=== PATIENT | male | born 1935 | race Caucasian/White ===

== ENCOUNTER 2017-08-19 08:43 | Outpatient (RCR) | payer MEDICARE, BC ==
[2015-10-14 14:12] VITALS: Ht 177.8 cm; Wt 105.6 kg
[2017-08-11 09:00] VITALS: BP 151/79
[2017-08-11 09:06] LABS: PLATELET COUNT, AUTOMATED 268 K/uL (150-450)
[~2017-08-19] VITALS: Ht 177.8 cm; Wt 105.6 kg
[~2017-08-19 08:43] MED LIST: ACET-1966 PO; ACET500T68 PO; ASPI-1471 PO; ASPI81TA86 PO; ATOR-1 PO; ATOR40TA69 PO; ATR80PT PO; AZIT-1 PO; BLOO-884 MC; CLOP75TA PO; DOCU-416 PO; EZET10TA41 PO; FISH1CAP15 PO; FLU45SYR17 IM; FLU45SYR25 IM ONLY; FLU60SYR30 IM ONLY; FLUT9.9S; GLIP-154 PO; GLIP-175 PO; GLIP2.5T14 PO; HYDR-317 PO; HYDR-385 PO; HYDR-4309 PO; LISI-362 PO; LISI20TA29 PO; LISI5TAB25 PO; METF-420 PO; OXYB10TA21 PO; PHEN200T32 PO; PNEU0.5D3 IM; POLY17PO25 PO; POTA-23 PO; POTA20TA94 PO; PRED20TA6 PO; SERT-181 PO; SERT-184 PO; SIMV-54 PO; TAMS0.4C25 PO; TAMS0.4C70 PO; VERA120T14 PO; ZOLP-1 PO; [UNRECOGNIZED DRUG - CODE] MC
[2017-08-19 09:02] VITALS: BP 139/69
--- NOTE | 2017-08-19 16:53 | ONCOLOGY FOLLOW UP NOTE ---
EVENT DATE: August 19, 2017 DIAGNOSES 1. Idiopathic thrombocytopenia purpura. 2. History of splenectomy for idiopathic thrombocytopenia purpura. 3. History of polycythemia in the past. 4. History of monoclonal gammopathy, unknown significance. 5. 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 6. Diabetes mellitus. 7. Coronary artery disease. 8. Hyperlipidemia. 9. Hypertension. CHIEF COMPLAINT The patient is here today for follow up of his MGUS. HEMATOLOGY HISTORY The patient is an 81-year-old male who had history of squamous cell carcinoma of the skin on multiple occasions. He recently had two lesions from the left side of the face resected by Dr. Varma, and the pathology is still pending. The patient gave a history of idiopathic thrombocytopenic purpura treated with splenectomy a long time ago. Also, as per patient, he was diagnosed with Waldenstrom macroglobulinemia and was put on followup; but, he did not receive any treatment for that in the past according to him. The patient moved from [place], [place] to [place], [place] in December of 2014, and he would like to establish his care with a big data lead. The patient is here today for followup of his ITP and MGUS. He is doing fine currently, apart from having arthritis with pain in the left shoulder and hips bilaterally. The patient is doing fine. He is also short winded. HISTORY OF PRESENT ILLNESS Patient is here today for followup his MGUS. He is doing fine currently. 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 He is scheduled by Dr. Medina, his urologist, for removal of bladder tumor very soon. PAST MEDICAL HISTORY 1. Waldenstrom macroglobulinemia. 2. ITP. 3. Squamous cell carcinoma of the skin. 4. Diabetes mellitus, type 2. 5. Coronary artery disease status post myocardial infarction in 2006, has three stents. 6. Hyperlipidemia. 7. Hypertension. PAST SURGICAL HISTORY 1. He had three stents put in the coronaries. 2. Splenectomy for ITP. 3. Hernia repair. 4. Cholecystectomy. 5. Tonsillectomy as a child. FAMILY HISTORY Mother had breast cancer. SOCIAL HISTORY The patient is with one daughter. 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 He never smoked and never drank. He denies any abuse of illicit drugs. CURRENT MEDICATIONS 1. Aspirin 81 mg daily. 2. Plavix 75 mg daily. 3. Potassium chloride one daily. 4. Lisinopril 5 mg daily. 5. Mag ox 40 mg orally. 6. Metformin 100 mg twice daily. 7. Sertraline 50 mg once daily. 8. Simvastatin 40 mg nightly. 9. Flomax 0.4 mg daily. 10. Zetia 10 mg daily. ALLERGIES ALEVE, CODEINE, PENICILLIN, SULFA DRUGS. REVIEW OF SYSTEMS CONSTITUTIONAL: No appetite or weight change. No fever, chills or sweating. No recent infection. HEENT: Ears: No tinnitus or hearing problem. Nose: No nasal discharge or epistaxis. Throat: No sore throat or mouth ulcers. Eyes: No diplopia or visual changes. RESPIRATORY: No shortness of breath. No cough, expectoration or hemoptysis. CARDIOVASCULAR: No chest pain, orthopnea, or paroxysmal nocturnal dyspnea (PND) . No edema. No palpitations. GASTROINTESTINAL: No nausea or vomiting. No diarrhea or constipation. No change in bowel movements. No heartburn or swallowing difficulties. No abdominal pain. No jaundice. No hematemesis, melena or rectal bleeding. GENITOURINARY: No hematuria or dysuria. MUSCULOSKELETAL: He has pain in the left shoulder and hips bilaterally. NEUROLOGICAL: He has tingling and numbness in the feet from neuropathy. HEMATOLOGIC/LYMPHATIC: No bleeding or easy bruising. No weakness or fatigue. No enlarged lymph nodes. SKIN: No skin rash or lumps. PSYCHIATRIC: No anxiety or depression. PHYSICAL EXAMINATION GENERAL: Looks stable. Well-developed, well-nourished, and in no acute distress. VITAL SIGNS: Blood pressure 139/69, pulse 78 per minute, respirations 16 per minute, temperature 96.9, pulse ox 90% on room air. HEENT: Head: Atraumatic. No sinus tenderness to palpation. Eyes: No icterus or conjunctivitis. Mouth and throat: No oral thrush or mucositis. NECK: Supple. No cervical or supraclavicular lymphadenopathy. LUNGS: Clear to auscultation and percussion bilaterally. HEART: Regular rate and rhythm. No gallops, murmurs, clicks or rubs. ABDOMEN: Soft and lax. No tenderness. No hepatosplenomegaly. No masses. EXTREMITIES: No cyanosis, clubbing or edema. LYMPHATICS: No peripheral lymphadenopathy. NEUROLOGICAL: Conscious, alert and oriented times three. No focal motor or sensory deficits. PSYCHIATRIC: Mood and affect appear normal. SKIN: No skin rash, bruise or purpuric eruption. DIAGNOSTIC DATA CBC showed white count 14.1, hemoglobin 16.4, hematocrit 49.3, platelets 269, 000. Chem panel totally normal except chloride 109, creatinine 1.1.7. Beta-2 microglobulin 4.5. IgG level is 1030, IgA is 279, IgM is 272, which is mildly elevated and up from 252 at his last visit. Serum protein immunoelectrophoresis did reveal a faint band in IgM lambda, suggestive of a specific immune response or an early monoclonal protein with an addition of very faint band in the IgM kappa. ASSESSMENT 1. Monoclonal gammopathy of unknown significance discovered during evaluation of peripheral neuropathy. His current immunoelectrophoresis did reveal a faint band in the IgM lambda which is stable. We will continue followup. I am planning to see him again in six months with repeat myeloma profile at that time. Patient is totally asymptomatic. 2. Idiopathic thrombocytopenic purpura status post splenectomy. His platelet count currently is normal at 268,000. We will continue to monitor with each visit. 3. Lymphocytosis. Absolute lymphocytic count at this time is 6.9. I am planning to get a flow cytometry with his next visit. 4. History of recurrent bladder cancer. Patient is scheduled by Dr. Medina for TURBT soon. 5. Diabetes mellitus on metformin. 6. Coronary artery disease status post myocardial infarction in 2005 with three stents placed. 7. Hypertension. 8. 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 PLAN 1. Continue followup. 2. Patient to return in six months with CBC, chem panel, LDH, uric acid and myeloma profile, and flow cytometry. 3. Patient is to contact us for any new concerns or complaints. KATIA
== END 2017-08-27 09:05 | disposition home or self-care (01) ==
LOC: ONC 08:43
PROVIDERS: ATTEND Internal Medicine Hematology
DX: D69.3 Immune thrombocytopenic purpura (principal); D47.2 Monoclonal gammopathy; D72.820 Lymphocytosis (symptomatic); Z85.51 Personal history of malignant neoplasm of bladder; E11.9 Type 2 diabetes mellitus without complications; I25.10 Atherosclerotic heart disease of native coronary artery without angina pectoris; I10 Essential (primary) hypertension; I25.2 Old myocardial infarction; Z79.82 Long term (current) use of aspirin; Z79.899 Other long term (current) drug therapy
CPT/HCPCS: 36415; 82232; 83615; 83883; 84550; 85025; 86334; G0463; 82040; 82247; 82310; 82374; 82435; 82565; 82947; 84075; 84132; 84155; 84295; 84450; 84460; 84520; 99212

== ENCOUNTER → 2017-08-26 | Outpatient (CLI) | payer MEDICARE, BC ==
[2015-10-14 14:12] VITALS: BMI 33.4
--- NOTE | 2017-08-26 11:29 | RADIOLOGY IMAGING REPORT ---
FACILITY: [facility] PATIENT NAME: Norberto Pritchett : 1935 MR: [id number] V: [id number] EXAM DATE: ORDERING PHYSICIAN: JOSEPH OCASIO TECHNOLOGIST: Location: [facility] Patient: Norberto Pritchett : 1935 Visit/Account:[id number] Date of Sevice: 08/26/2017 ABDOMEN/PELVIS W/O CONTRAST HISTORY: Kidney stones, TCCA TECHNIQUE: Axial images acquired through the abdomen/pelvis. Coronal and sagittal reformatting also performed. No IV contrast administered. Dose Lowering Technique One of the following dose optimization techniques was utilized in the performance of this exam: Autom ated exposure control; adjustment of the mA and/or kV according to the patient's size; or use of an i terative reconstruction technique. Specific details can be referenced in the facility's radiology C T exam operational policy. COMPARISON: None. FINDINGS: Visualized lung bases: Negative. Hepatobiliary: Postsurgical changes from a cholecystectomy Spleen: Spleen is absent. There are several tiny splenules in the left upper quadrant Adrenals: Negative. Pancreas: Negative. Kidneys ureters and bladder: There are two tiny 1 mm nonobstructing calculi lower pole calyces of the right kidney. . (Cortical thinning bilaterally. The two lower pole left renal cysts are again seen and appear unchanged in size. The largest measure s 4 cm in diameter. The upper pole left renal cyst also appears unchanged in size. Other Tiny corti fam hypodensities in both kidneys are too small to characterize.. Bladder wall appears moderately th ickened although was not well opacified with contrast. Genitalia: There is a TURP defect in the prostate GI: There is diverticulosis left-sided colon although no CT evidence of acute diverticulitis Vessels/spaces/nodes: There are moderate vascular calcifications Bones/soft tissues: There is a small umbilical hernia containing fat. Mild to moderate spondylotic changes of the lumbar spine. Additional findings: None pertinent. IMPRESSION: Two tiny 1 mm nonobstructing calculi are present in the lower pole calyces of the right kidney. Cortical thinning bilaterally Left renal cysts unchanged Diverticulosis left-sided colon although no CT evidence of acute diverticulitis Report Dictated By: Pily Gilmore MD at 08/26/2017 11:05 AM Report E-Signed By: Pily Gilmore MD at 08/26/2017 11:25 AM WSN:[email or web address]
== END ==
LOC: CT 01:26
PROVIDERS: ATTEND Urology
DX: N20.0 Calculus of kidney (principal); N28.1 Cyst of kidney, acquired; K57.30 Diverticulosis of large intestine without perforation or abscess without bleeding; K42.9 Umbilical hernia without obstruction or gangrene
CPT/HCPCS: 74176

== ENCOUNTER 2017-09-02 01:34 | Day surgery (SDC) | payer MEDICARE, BC ==
[2015-10-14 14:12] VITALS: Ht 177.8 cm; Wt 103.4 kg
[2017-08-27 10:58] LABS: PLATELET COUNT, AUTOMATED 272 K/uL (150-450)
[2017-08-27 11:09] LABS: INR 0.95
--- NOTE | 2017-09-01 15:00 | HISTORY AND PHYSICAL ---
DATE OF ADMISSION: September 02, 2017 CHIEF COMPLAINT Bladder cancer. 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 At that time, he underwent transurethral resection. Followup cystoscopy revealed some small papillary changes in the right posterior wall. He was taken back to the operating room in March 2017 and underwent a cold-cut biopsy of these right posterior wall lesions which returned a papilloma. A followup anesthetic cystoscopy in mid July of this past year revealed two areas of papillary changes on the posterior wall, both measuring approximately 3 mm in size. Therefore, he is being returned for anesthetic cystoscopy, biopsy, and resection of these lesions with possible mitomycin-C intravesical chemotherapy post resection. Discussion of BCG treatment pending pathology of this biopsy was also discussed with the patient preoperatively. PAST MEDICAL HISTORY 1. Hyperlipidemia. 2. Hypertension. 3. Coronary artery disease with AK in 2005. 4. Diabetes. 5. Squamous cell carcinoma of the skin. 6. Idiopathic thrombocytopenia purpura. 7. Questionable Waldenstrom macroglobulinemia. 8. Sleep apnea. 9. Kidney stones. 10. Bladder cancer. PAST SURGICAL HISTORY 1. Splenectomy for ITP. 2. Hernia repair. 3. Cholecystectomy. 4. Tonsillectomy. 5. Transurethral resection of the prostate. 6. Coronary artery stenting in 2005 and 2007. 7. Charlene fundoplication. 8. Extracorporeal shock wave lithotripsy of kidney stones 2015. 9. Transurethral resection of bladder tumor October 2015. 10. Bladder biopsy March 2017. CURRENT MEDICINES 1. Aspirin. 2. Plavix. 3. Potassium. 4. Lisinopril. 5. Magnesium. 6. Metformin. 7. Simvastatin. 8. Flomax. 9. Zetia. 10. Sertraline. ALLERGIES CODEINE, PENICILLIN, SULFA DRUGS, and ALEVE. REVIEW OF SYSTEMS The patient denies gross hematuria, flank pain, productive cough, fever, chills , nausea, vomiting, liver disease, or chronic headache. FAMILY HISTORY Noncontributory. SOCIAL HISTORY The patient is and lives in [place], [place]. He is the primary station agent of his . PHYSICAL EXAMINATION GENERAL: The patient is a well-developed, elderly, white male in no acute distress. HEENT: Normocephalic, atraumatic. CHEST: Clear to auscultation bilaterally. CARDIOVASCULAR: Regular rate and rhythm. ABDOMEN: Soft, nontender. No masses are palpated. GENITOURINARY: Deferred to the OR. EXTREMITIES: No clubbing, cyanosis, or edema. NEUROLOGIC: Nonfocal. IMPRESSION An 82-year-old white male with a history of recurrent papillary lesions in the bladder with original diagnosis of a grade 1 Ta bladder cancer in 2016. PLAN We will perform anesthetic cystoscopy with resection or biopsy of the lesion with possible mitomycin-C instillation. [facility]
[~2017-09-02] VITALS: Ht 177.8 cm; Wt 103.4 kg
[2017-09-02 06:01] VITALS: BP 163/92
[2017-09-02] MEDS ORDERED: NORMOSOL R SOLN(*) 1000 ML BAG 1,000 ML IV PRN (06:45)
[2017-09-02] MEDS ORDERED: MIDAZOLAM 2 MG/2 ML VIAL IVP PRN (06:45)
[2017-09-02] MEDS ORDERED: FAMOTIDINE 20 MG TAB PO ONE (06:45)
[2017-09-02] MEDS ORDERED: LIDOCAINE/SOD BICARB 8.4% SYR ID ONE (06:45)
[2017-09-02] MEDS ORDERED: LEVOFLOXACIN/D5W*500 MG/100 ML 100 ML IVPB ONE (06:45)
[2017-09-02] MEDS ORDERED: DEXAMETHASONE SOD PHOS 10MG/ML ONE (07:59)
[2017-09-02] MEDS ORDERED: fentaNYL CITR 100 MCG/2 ML AMP ONE (07:59)
[2017-09-02] MEDS ORDERED: PROPOFOL EMUL(*) 10MG/ML 20 ML 20 ML ONE (07:59)
[2017-09-02] MEDS ORDERED: ONDANSETRON 4 MG/2 ML VIAL ONE (07:59)
[2017-09-02] MEDS ORDERED: BELLADONNA ALK/OPIUM 60MG SUPP PR ONE (08:14)
[2017-09-02] MEDS ORDERED: mitoMYcin 20 MG VIAL 40 MG in WATER STERILE FOR INJ 50 ML VL 40 ML IR ONE (08:30)
[2017-09-02] MEDS ORDERED: NS 0.9% 3000 ML IRRIGATION BAG IR ONE (08:37)
[2017-09-02] MEDS ORDERED: PHEN200T32 PO (08:43)
[2017-09-02] MEDS ORDERED: DOCU-416 PO (08:44)
[2017-09-02] MEDS ORDERED: HYDR-4309 PO (08:44)
[2017-09-02 10:05] VITALS: BP 146/75
[2017-09-02 10:15] VITALS: BP 148/72
[2017-09-02 10:30] VITALS: BP 141/71
[2017-09-02 10:42] VITALS: BP 135/65
[2017-09-02 10:48] VITALS: BP 133/75
--- NOTE | 2017-09-02 14:52 | OPERATIVE REPORT 1 ---
EVENT DATE: September 02, 2017 SURGEON: Abdullahi Medina MD ANESTHESIOLOGIST: Jose De Jesus MD ANESTHESIA: General anesthetic. PREOPERATIVE DIAGNOSIS Bladder tumors. POSTOPERATIVE DIAGNOSIS Bladder tumors. PROCEDURES PERFORMED 1. Anesthetic cystoscopy. 2. Cold-cut biopsy of papillary lesions on floor of bladder times two with fulguration of biopsy sites. 3. Mitomycin-C intravesical instillation in the recovery room. ESTIMATED BLOOD LOSS 5 mL INTRAVENOUS FLUIDS Crystalloids. DRAINS An 18-Tajik Arredondo catheter. PATHOLOGY Cold-cut biopsies sent for permanent analysis of bladder floor on right. COMPLICATIONS None. CONDITION The patient was taken to the recovery room awake and in stable condition. 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 He had a small papillary recurrence in March of this past year. On followup cystoscopy in the office, two more small papillary lesions were noted on the floor of the bladder. He is now being brought to the operating room for planned resection and/or biopsy of these areas with possible mitomycin-C instillation. DESCRIPTION OF PROCEDURE PERFORMED The patient was brought to the operating room. After general anesthetic was obtained, he was placed in the dorsal lithotomy position and prepped and draped in the usual sterile manner. Anesthetic cystoscopy was performed with the 21- Tajik rigid sheath with both the 30- and 70-degree lenses. He had a normal- appearing urethra without evidence of stricture or other anomalies. His bladder neck was widely open. His bladder mucosa was 1 to 2+ trabeculated. There were two small papillary lesions on the floor of the bladder on the right side. One measured approximately 4 mm, and the second one measured approximately 2 mm. The remainder of the bladder appeared normal without evidence of other tumors or lesions. At this point, the cold-cut biopsy rigid forceps were then used to do excisional cold-cut biopsy of these two areas. They were grasped and sent to Pathology for permanent analysis. The Bovie electrode was then introduced into the working port of the sheath, and these areas were fulgurated. Following this, the scope was removed. An 18-Tajik Arredondo catheter was placed to gravity drainage. A B and O suppository was given per rectum. The patient was awakened in the operating room and taken to the recovery area where 40 mg of mitomycin and 40 mL of sterile water were instilled into the bladder and the Arredondo catheter clamped. PLAN The plan will be to drain the mitomycin in approximately one hour. He will be ready for discharge home on [place], [place], and Pyridium. We will plan to see him in the office in followup in two to three weeks to review his pathology and discuss possible BCG instillation versus continued surveillance cystoscopy. KATIA
== END 2017-09-02 10:00 | disposition home or self-care (01) ==
LOC: OR 01:34
PROVIDERS: ATTEND Urology
DX: N32.9 Bladder disorder, unspecified (principal); E11.9 Type 2 diabetes mellitus without complications; E78.5 Hyperlipidemia, unspecified; I10 Essential (primary) hypertension; Z95.1 Presence of aortocoronary bypass graft; I25.10 Atherosclerotic heart disease of native coronary artery without angina pectoris; Z85.828 Personal history of other malignant neoplasm of skin; Z85.51 Personal history of malignant neoplasm of bladder; Z79.82 Long term (current) use of aspirin; D69.3 Immune thrombocytopenic purpura; Z87.442 Personal history of urinary calculi
CPT/HCPCS: 36415; 36416; 51720; 52224; 81001; 82948; 85025; 85610; 85730; 87088; 88305; A9270; J1100; J1956; J2405; J2704; J3010; J9280

== ENCOUNTER → 2017-11-02 | Outpatient (CLI) | payer MEDICARE, BC ==
[2015-10-14 14:12] VITALS: BMI 33.4
[~2017-11-02] MED LIST changes: +GLIP-152 PO
== END ==
LOC: LAB 16:27
PROVIDERS: ATTEND Internal Medicine
DX: E11.319 Type 2 diabetes mellitus with unspecified diabetic retinopathy without macular edema (principal); I10 Essential (primary) hypertension; E78.2 Mixed hyperlipidemia
CPT/HCPCS: 36415; 82040; 82247; 82310; 82374; 82435; 82465; 82565; 82947; 83036; 83718; 84075; 84132; 84155; 84295; 84450; 84460; 84478; 84520

== ENCOUNTER 2017-12-03 10:47 | Emergency (ER) | payer MEDICARE, BC ==
[2015-10-14 14:12] VITALS: Wt 102.2 kg
[~2017-12-03 10:47] MED LIST changes: -METO25TA93 PO; -NITR0.4T3 SL; -OXYGENHOME INH; -PANT40TA65 PO
--- NOTE | 2017-12-03 10:51 | ER Report ---
History and Physical Time Seen By MD: 11:00 HPI/ROS CHIEF COMPLAINT: Chest pain and palpitations HISTORY OF PRESENT ILLNESS: Patient is an 82-year-old male who presents to the emergency department with complaint of chest pain and palpitations that began around 10 PM last night. Reports the pain as a pressure without radiation into the neck or to the arms. He does have associated shortness of breath. Patient also has episodes where he feels like his heart is racing in his chest this will last for a few seconds or maybe 1-2 minutes and then resolved spontaneously. She does have a prior history of ND in 2005 and received stents 3. He has been followed by Dr. Quarles with cardiology at [facility] but has not seen him in about 6 months. Patient does have a history of hypercholesterolemia, history of hypertension. REVIEW OF SYSTEMS: Constitutional: No fever, no chills. Eyes: No discharge. ENT: No sore throat. Cardiovascular: Chest pressure, palpitations Respiratory: No cough positive dyspnea Gastrointestinal: No abdominal pain, no vomiting. Genitourinary: No hematuria. Musculoskeletal: No back pain. Skin: No rashes. Neurological: No headache. Allergies: Coded Allergies: naproxen (Verified Allergy, Severe, anaphylaxis, 03/04/17) codeine (Verified Allergy, Intermediate, RASH, 03/04/17) Penicillins (Verified Allergy, Unknown, rash, 03/04/17) Sulfa (Sulfonamide Antibiotics) (Verified Allergy, Unknown, rash, 03/04/17) Home Meds Active Scripts Prednisone (PREDNISONE) 20 Mg Tablet, 1 TAB PO DAILY Y for FEVER, #30 TAB 1 Refill Prov:DHEERAJ SIMEON MD 11/08/17 Glipizide (GLIPIZIDE) 5 Mg Tablet, 1 TAB PO QDAY, #90 TAB 3 Refills Prov:DHEERAJ SIMEON MD 11/03/17 Lisinopril (LISINOPRIL) 10 Mg Tablet, 2 TAB PO QDAY, #90 TAB 3 Refills Prov:DHEERAJ SIMEON MD 10/05/17 Sertraline Hcl (SERTRALINE HCL) 100 Mg Tablet, 1 TAB PO QDAY, #90 TAB 3 Refills Prov:DHEERAJ SIMEON MD 07/22/17 Verapamil Hcl (VERAPAMIL ER) 120 Mg Tablet.er, 1 TAB PO QDAY, #30 TAB 1 Refill Prov:DHEERAJ SIMEON MD 05/03/17 Fluticasone Propionate (Flonase Allergy Relief) 9.9 Ml [place].susp, 1 SPRAY NA QDAY, #1 BOTTLE 3 Refills Prov:DHEERAJ SIMEON MD 04/07/17 Reported Medications Docusate Sodium (COLACE) 100 Mg Capsule, 100 MG PO BID, #30 CAPSULE 09/02/17 Simvastatin (SIMVASTATIN) 40 Mg Tablet, 1 TAB PO QHS, TAB 11/19/16 Tamsulosin Hcl (FLOMAX) 0.4 Mg Cap.er.24h, 1 TAB PO QDAY, #30 CAP 11/14/15 Aspirin (ASPIR 81) 81 Mg Tablet.dr, 2 TAB PO QDAY, TAB 11/12/15 Past Medical/Surgical History Past medical history for chronic inflammatory demyelinating polyneuropathy, history of retinopathy history of CHF, hyperlipidemia, hypertension, history of myocardial infarction in August 2005. History of obstructive sleep apnea, history of gastroesophageal reflux disease, history of type II diabetes that requires insulin. History of bladder cancer diagnosed 2013, history of idiopathic thrombocytopenic purpura history of skin cancer Hx Smoking: No Smoking Status: Never Smoker Exposure to Second Hand Smoke?: No Hx Alcohol Use: No Constitutional Vital Sign - Last 24 Hours 12/03/17 12/03/17 12/03/17 12/03/17 10:51 11:03 11:07 11:13 Temp 97.7 Pulse 63 Resp 20 B/P (MAP) 165/90 139/117 (124) 126/80 (95) 129/94 (106) Pulse Ox 90 O2 Delivery Room Air 12/03/17 12/03/17 12/03/17 12/03/17 11:17 11:17 11:22 11:35 Pulse 66 66 Resp 9 18 B/P (MAP) 113/65 (81) Pulse Ox 95 93 O2 Flow Rate 1.0 12/03/17 12/03/17 12/03/17 12/03/17 11:37 11:40 11:45 11:50 Pulse 71 Resp 16 B/P (MAP) 99/55 (70) 119/71 (87) 139/83 (101) Pulse Ox 94 12/03/17 12/03/17 12/03/17 12/03/17 11:52 11:55 12:00 12:05 Pulse 63 Resp 10 B/P (MAP) 117/68 (84) 120/69 (86) 116/71 (86) Pulse Ox 95 12/03/17 12/03/17 12/03/17 12/03/17 12:07 12:10 12:15 12:20 Pulse 61 Resp 14 B/P (MAP) 136/65 (88) 128/64 (85) 118/57 (77) Pulse Ox 92 12/03/17 12/03/17 12/03/17 12/03/17 12:22 12:25 12:30 12:35 Pulse 64 Resp 11 B/P (MAP) 109/68 (82) 128/61 (83) 126/71 (89) Pulse Ox 94 12/03/17 12/03/17 12/03/17 12/03/17 12:37 12:40 12:45 12:50 Pulse 69 65 Resp 12 10 B/P (MAP) 130/64 (86) 125/65 (85) 130/64 (86) Pulse Ox 93 94 12/03/17 12/03/17 12/03/17 12/03/17 12:55 13:00 13:05 13:10 Pulse 60 Resp 10 B/P (MAP) 138/74 (95) 135/71 (92) 112/67 (82) 108/45 (66) Pulse Ox 95 12/03/17 12/03/17 13:15 13:15 Temp 98.7 B/P (MAP) 109/59 (76) Intake and Output 12/03/17 12/03/17 12/04/17 15:00 23:00 07:00 Intake Total 500 ml Balance 500 ml Physical Exam General/Constitutional: Patient is awake, alert, nontoxic and in no acute respiratory distress. Head: Normocephalic and atraumatic. Eyes: Conjunctival clear, Pupils are equal and reactive to light. Extraocular muscles are intact and symmetrical. Sclera are clear and anicteric. Ears:External canals are clear. Tympanic membranes are clear with normal landmarks and light reflex. Nares: No rhinorrhea or bleeding. Turbinates are pink and moist. Oropharyngeal: Mucous membranes are moist. There is no pharyngeal erythema or exudate. There are no palatal petechiae. Uvula is midline and symmetrical. Neck: Supple, no adenopathy. Cardiovascular: Heart is regular rate and rhythm without audible murmurs, rubs or gallops. Pulmonary: Lungs are clear to auscultation bilaterally. There are no wheezes, rales, or rhonchi. Chest rise is symmetrical Abdomen: Soft, nontender, no guarding or peritoneal signs. Extremities: No gross deformities, No peripheral cyanosis. Able to move all 4 extremities. Neuro: Alert and oriented X3, Cranial nerves 2 thru 12 are intact and symmetrical. Patient has normal gait. Skin: No rashes, skin is warm dry and well perfused. Medical Decision Making Data Points Result Diagram: 12/03/17 1053 12/03/17 1053 Laboratory Hematology Test 12/03/17 10:53 Red Blood Count 5.14 M/uL (4.00-5.60) Mean Corpuscular Volume 95.1 fL (80.0-96.0) Mean Corpuscular Hemoglobin 32.3 pg (26.0-33.0) Mean Corpuscular Hemoglobin Concent 34.0 g/dL (32.0-36.0) Red Cell Distribution Width 14.6 % (11.5-14.5) Mean Platelet Volume 9.9 fL (7.2-11.1) Neutrophils (%) (Auto) 38.6 % (39.4-72.5) Lymphocytes (%) (Auto) 45.3 % (17.6-49.6) Monocytes (%) (Auto) 12.1 % (4.1-12.4) Eosinophils (%) (Auto) 2.9 % (0.4-6.7) Basophils (%) (Auto) 1.1 % (0.3-1.4) Nucleated RBC Relative Count (auto) 0.0 /100WBC Neutrophils # (Auto) 5.0 K/uL (2.0-7.4) Lymphocytes # (Auto) 5.8 K/uL (1.3-3.6) Monocytes # (Auto) 1.6 K/uL (0.3-1.0) Eosinophils # (Auto) 0.4 K/uL (0.0-0.5) Basophils # (Auto) 0.1 K/uL (0.0-0.1) Nucleated RBC Absolute Count (auto) 0.00 K/uL Prothrombin Time 12.7 seconds (12.0-14.4) Prothromb Time International Ratio 0.96 Activated Partial Thromboplast Time 30 seconds (23-35) Sodium Level 142 mmol/L (137-145) Potassium Level 4.0 mmol/L (3.5-5.0) Chloride Level 106 mmol/L (98-107) Carbon Dioxide Level 22 mmol/L (22-30) Blood Urea Nitrogen 19 mg/dl (9-21) Creatinine 1.90 mg/dl (0.66-1.25) Glomerular Filtration Rate Calc 34.1 Random Glucose 77 mg/dl (75-110) Calcium Level 9.7 mg/dl (8.4-10.2) Magnesium Level 2.0 mg/dl (1.7-2.2) Total Bilirubin 0.7 mg/dl (0.2-1.3) Aspartate Amino Transf (AST/SGOT) 25 U/L (0-35) Alanine Aminotransferase (ALT/SGPT) 25 U/L (0-56) Alkaline Phosphatase 118 U/L (0-126) Troponin I < 0.012 ng/ml B-Type Natriuretic Peptide 48 pg/ml (0-100) Total Protein 7.6 gm/dl (6.3-8.2) Albumin 4.0 g/dl (3.5-5.0) Chemistry Test 12/03/17 10:53 White Blood Count 12.9 k/uL (4.5-11.0) Red Blood Count 5.14 M/uL (4.00-5.60) Hemoglobin 16.6 g/dL (14.0-18.0) Hematocrit 48.8 % (42.0-52.0) Mean Corpuscular Volume 95.1 fL (80.0-96.0) Mean Corpuscular Hemoglobin 32.3 pg (26.0-33.0) Mean Corpuscular Hemoglobin Concent 34.0 g/dL (32.0-36.0) Red Cell Distribution Width 14.6 % (11.5-14.5) Platelet Count 256 K/uL (150-450) Mean Platelet Volume 9.9 fL (7.2-11.1) Neutrophils (%) (Auto) 38.6 % (39.4-72.5) Lymphocytes (%) (Auto) 45.3 % (17.6-49.6) Monocytes (%) (Auto) 12.1 % (4.1-12.4) Eosinophils (%) (Auto) 2.9 % (0.4-6.7) Basophils (%) (Auto) 1.1 % (0.3-1.4) Nucleated RBC Relative Count (auto) 0.0 /100WBC Neutrophils # (Auto) 5.0 K/uL (2.0-7.4) Lymphocytes # (Auto) 5.8 K/uL (1.3-3.6) Monocytes # (Auto) 1.6 K/uL (0.3-1.0) Eosinophils # (Auto) 0.4 K/uL (0.0-0.5) Basophils # (Auto) 0.1 K/uL (0.0-0.1) Nucleated RBC Absolute Count (auto) 0.00 K/uL Prothrombin Time 12.7 seconds (12.0-14.4) Prothromb Time International Ratio 0.96 Activated Partial Thromboplast Time 30 seconds (23-35) Glomerular Filtration Rate Calc 34.1 Calcium Level 9.7 mg/dl (8.4-10.2) Magnesium Level 2.0 mg/dl (1.7-2.2) Total Bilirubin 0.7 mg/dl (0.2-1.3) Aspartate Amino Transf (AST/SGOT) 25 U/L (0-35) Alanine Aminotransferase (ALT/SGPT) 25 U/L (0-56) Alkaline Phosphatase 118 U/L (0-126) Troponin I < 0.012 ng/ml B-Type Natriuretic Peptide 48 pg/ml (0-100) Total Protein 7.6 gm/dl (6.3-8.2) Albumin 4.0 g/dl (3.5-5.0) Coagulation Test 12/03/17 10:53 Prothrombin Time 12.7 seconds Prothromb Time International Ratio 0.96 Activated Partial Thromboplast Time 30 seconds EKG/Imaging EKG Interpretation EKG shows normal sinus rhythm with ventricular rate of 67 bpm Monitor Interpretation: Normal Sinus Rhythm Imaging FACILITY: PATIENT NAME: Norberto Pritchett : 1935 MR: [id number] V: [id number] EXAM DATE: ORDERING PHYSICIAN: DEVIN VEGAS TECHNOLOGIST: Location: [facility] [place] Patient: Norberto Pritchett DOB: 1935 Visit/Account:[id number] Date of Sevice: 12/03/2017 CHEST SINGLE AP INDICATION: Chest Pain COMPARISON: October 07, 2015 FINDINGS: Heart size within normal limits. There is no focal infiltrate or lobar consolidation. There is no pneumothorax or pleural effusion. IMPRESSION: 1. No acute cardiopulmonary process. 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 The R to R interval is fairly consistent. This lasted for approximately 10 seconds and then resolved spontaneously. Patient has had 2 episodes in the emergency department with this type of tachycardia. Patient remains conscious during these episodes and has no alteration in his vital signs which are stable. He is aware of the racing heart rate. While this certainly could represent tachycardia with apparent conduction it certainly also raises the possibility of monomorphic V. tach with a pulse. Patient was placed on the [place] monitor with different ablation pads placed in an anterior and lateral position. 12/03/2017 11:31:45 am patient remains in a sinus rhythm with a ventricular rate of 65 bpm. Patient was given 0.4 mg of sublingual nitroglycerin we are still waiting for response to this medication. Current pain level is 2 out of 10 in intensity. Case was discussed with the on-call hospitalist Dr. Alejandro Rico. Dr. Rico did review the EKG along with the rhythm strips. The concern certainly would be for monomorphic ventricular tachycardia. It was felt that we should consult a higher level of care to see if the patient would require placement of AICD. I am calling [facility] at this time we will fax over an EKG along with rhythm strips. I'm waiting to talk to the on-call as400 developer at this time. 12/03/2017 12:15:42 pm I spoke with Dr. Valencia from internal medicine also with Dr. Rutledge who will consult for cardiology; history physical exam all pertinent lab and ancillary testing were reviewed. Concern from my standpoint is the issue may be having runs of nonsustained ventricular tachycardia. Plan will be to transport the patient to [facility] under the hospitalist Dr. Valencia for admission. They will perform a further cardiac evaluation at that facility. The patient and daughter were made aware of this disposition and have no questions or concerns at time of discharge. Decision to Disposition Date: Dec 03, 2017 Decision to Disposition Time: 12:16 Depart Departure Latest Vital Signs Vital Signs Date Time Temp Pulse Resp B/P (MAP) Pulse Ox O2 Delivery O2 Flow Rate FiO2 12/03/17 13:15 98.7 12/03/17 13:15 109/59 (76) 12/03/17 13:05 60 10 95 12/03/17 11:17 1.0 12/03/17 10:51 Room Air Impression: Primary Impression: Wide-complex tachycardia Condition: Improved Disposition: [facility] (TO [facility] under dr valencia) Referrals: DHEERAJ SIMEON MD (PCP) DEVIN VEGAS MD Dec 03, 2017 10:51
[2017-12-03] MEDS ORDERED: ASPIRIN 81 MG CHEW PO ONE (10:55)
[2017-12-03 11:05] LABS: PLATELET COUNT, AUTOMATED 256 K/uL (150-450)
--- NOTE | 2017-12-03 11:06 | EKG ---
FACILITY: [facility] - [place] PATIENT NAME: BETH OGDEN : [id number] MR: [id number] V: [id number] EXAM DATE: ORDERING PHYSICIAN: DEVIN VEGAS TECHNOLOGIST: JESUS Test Reason : CP Blood Pressure : / mmHG Vent. Rate : 067 BPM Atrial Rate : 067 BPM P-R Int : 156 ms QRS Dur : 098 ms QT Int : 414 ms P-R-T Axes : 058 074 059 degrees QTc Int : 437 ms Poor data quality, interpretation may be adversely affected Sinus rhythm Incomplete right bundle branch block When compared with ECG of 11-MAR-2017 12:42, Relatively unchanged Confirmed by JUAN MERIDA ([id number]) on 12/03/2017 7:06:11 PM Referred By: SHASTA Confirmed By:JUAN MERIDA
[2017-12-03 11:14] LABS: INR 0.96
[2017-12-03] MEDS ORDERED: NITROGLYCERIN 0.4 MG SUBL SL ONE (11:25)
[2017-12-03] MEDS ORDERED: MORPHINE 4 MG/ML SDV IVP ONE (11:40)
[2017-12-03] MEDS ORDERED: NS(*) 0.9% 500 ML BAG 500 ML IV ONE (11:40)
--- NOTE | 2017-12-03 11:50 | RADIOLOGY IMAGING REPORT ---
FACILITY: [facility] PATIENT NAME: Norberto Pritchett : 1935 MR: [id number] V: [id number] EXAM DATE: ORDERING PHYSICIAN: DEVIN VEGAS TECHNOLOGIST: Location: [facility] Patient: Norberto Pritchett : 1935 Visit/Account:[id number] Date of Sevice: 12/03/2017 CHEST SINGLE AP INDICATION: Chest Pain COMPARISON: October 07, 2015 FINDINGS: Heart size within normal limits. There is no focal infiltrate or lobar consolidation. There is no pneumothorax or pleural effusion. IMPRESSION: 1. No acute cardiopulmonary process. Report Dictated By: Yovanny Miranda at 12/03/2017 11:44 AM Report E-Signed By: Yovanny Miranda at 12/03/2017 11:45 AM WSN:[id number]
[2017-12-03] MEDS ORDERED: ONDANSETRON 4 MG/2 ML VIAL IVP ONE (12:30)
[2017-12-03 13:15] VITALS: BP 109/59
== END 2017-12-03 13:37 | disposition short-term general hospital (02) ==
LOC: ER 10:48
DX: R00.0 Tachycardia, unspecified (principal); I45.10 Unspecified right bundle-branch block
CPT/HCPCS: 71045; 83735; 83880; 84484; 85025; 85610; 85730; 93005; 99285; A9270; J2270; J2405; J7040; 82040; 82247; 82310; 82374; 82435; 82565; 82947; 84075; 84132; 84155; 84295; 84450; 84460; 84520

== ENCOUNTER → 2017-12-03 | Outpatient (CLI) | payer MEDICARE, BC ==
[2015-10-14 14:12] VITALS: BMI 33.4
[~2017-12-03] MED LIST changes: +METO25TA93 PO; +NITR0.4T3 SL; +OXYGENHOME INH; +PANT40TA65 PO
== END ==
LOC: AMB 13:14
PROVIDERS: ATTEND Nurse Practitioner
DX: R00.0 Tachycardia, unspecified (principal); Z86.74 Personal history of sudden cardiac arrest; I25.2 Old myocardial infarction; E11.9 Type 2 diabetes mellitus without complications
CPT/HCPCS: A0425; A0426

== ENCOUNTER → 2017-12-28 | Outpatient (CLI) | payer MEDICARE, BC ==
[2015-10-14 14:12] VITALS: BMI 33.4
[~2017-12-28] MED LIST changes: -METF-420 PO; +METF-421 PO; +METO25TA93 PO; +NITR0.4T3 SL; +OXYGENHOME INH; +PANT40TA65 PO; +REGADENOSON 0.4 MG/5 ML SYR ONE
--- NOTE | 2017-12-28 15:01 | RADIOLOGY IMAGING REPORT ---
FACILITY: [facility] - [place] PATIENT NAME: Norberto Pritchett : 1935 MR: [id number] V: [id number] EXAM DATE: ORDERING PHYSICIAN: TREE HOLGUIN TECHNOLOGIST: Location: [facility] Patient: Norberto Pritchett : 1935 Visit/Account:[id number] Date of Sevice: 12/28/2017 EXAMINATION: Single isotope SPECT imaging with regadenoson infusion and gated SPECT imaging. DATE OF EXAMINATION: 12/28/2017. DATE OF INTERPRETATION: 12/28/2017. REQUESTING PHYSICIAN: TREE HOLGUIN. INDICATION: The patient is a 82-year-old male evaluated for chest discomfort. PROCEDURE: After informed consent the patient received an intravenous injection of 12.9 mCi of Tc-99 m sestamibi followed at an appropriate time interval by rest imaging. The patient then subsequently received an intravenous infusion of 0.4 mg of regadenoson per protocol without complication. Resting heart rate was 46 bpm with a peak heart rate of 52 bpm. Blood pressure at rest was 142 / 81 and fol lowing infusion was 142 / 81. Baseline EKG demonstrates sinus rhythm. There were no EKG changes of ischemia following infusion. Symptoms were nonspecific. The patient then received an intravenous in jection of 29.4 mCi of Tc-99m sestamibi followed by stress imaging. RAW DATA: Examination of the summed raw data revealed a good quality study. MYOCARDIAL PERFUSION: The tomographic images demonstrate normal myocardial perfusion with no evidenc e of infarct or ischemia. There is no TID. GATED IMAGES: The gated images demonstrate hyperdynamic ejection fraction >70% with normal wall elli on and thickening. IMPRESSION: 1. Nondiagnostic Lexiscan stress ECG 2. Normal myocardial perfusion scan. 3. Hyperdynamic LV systolic function; LVEF >70%. 4. Based on the results of this exam, the patient appears to be at low risk for future cardiovascular events. Report Dictated By: Gustavo Kapoor at 12/28/2017 2:52 PM Report E-Signed By: Gustavo Kapoor at 12/28/2017 2:56 PM WSN:[id number]
== END ==
LOC: NUC 00:49
PROVIDERS: ATTEND Internal Medicine Cardiovascular Disease
DX: I25.10 Atherosclerotic heart disease of native coronary artery without angina pectoris (principal); R07.9 Chest pain, unspecified
CPT/HCPCS: 78452; 93017; A9500; J2785

== ENCOUNTER 2018-02-09 10:41 | Inpatient (IN) | payer MEDICARE, BC ==
[~2018-02-09] VITALS: Ht 175.3 cm; Wt 99.8 kg
[~2018-02-09 10:41] MED LIST changes: -REGADENOSON 0.4 MG/5 ML SYR ONE
[2018-02-09] MEDS ORDERED: ALBUTEROL/IPRATROPIUM 3 ML NEB NEB ONE (10:50)
--- NOTE | 2018-02-09 10:55 | ER Report ---
History and Physical Time Seen By MD: 10:52 Hx. of Stated Complaint: PATIENT REPORTS THAT HE HAS BEEN HAVING DIFFICULTY BREATHING FOR THE LAST 4 DAYS HPI/ROS CHIEF COMPLAINT: Shortness of breath HISTORY OF PRESENT ILLNESS: 82-year-old male history of coronary artery disease heart attack 3 unclear history of congestive heart failure or COPD patient does use supplemental oxygen at home in the evening but not during the day however for the last 2 or 3 days been having worsening exertional dyspnea shortness of breath mild orthopnea without PND patient is denying chest pain at this time Yonathan pain or discomfort nausea vomiting diarrhea fever or chills. Patient states for the last 2-3 days he's been having worsening exertional dyspnea even at rest he's had some associated symptoms patient denies any recent travel recent sick contacts and [place] live [place] patient denies cough fever chills REVIEW OF SYSTEMS: Respiratory: Shortness of breath without cough Cardiovascular: No chest pain, no palpitations. Gastrointestinal: No vomiting, no abdominal pain. Musculoskeletal: No back pain. Remainder of the 14 system rev: Yes Allergies: Coded Allergies: naproxen (Verified Allergy, Severe, anaphylaxis, 03/04/17) codeine (Verified Allergy, Intermediate, RASH, 03/04/17) Penicillins (Verified Allergy, Unknown, rash, 03/04/17) Sulfa (Sulfonamide Antibiotics) (Verified Allergy, Unknown, rash, 03/04/17) Home Meds Reported Medications Metoprolol Tartrate (METOPROLOL TARTRATE) 50 Mg Tab, 1 TAB PO BID, TAB 02/09/18 Fluticasone Prop 50 Mcg Ns (FLONASE 50 MCG NS) 16 Gm [place].susp, 2 SPRAYS NS QDAY, BOT 02/09/18 Glipizide (GLIPIZIDE) 10 Mg Tablet, 10 MG PO QDAY 02/09/18 Simvastatin (SIMVASTATIN) 40 Mg Tablet, 40 MG PO HS, TAB 02/09/18 Sertraline Hcl (ZOLOFT) 100 Mg Tablet, 1 TAB PO QDAY, TAB 02/09/18 Lisinopril (LISINOPRIL) 20 Mg Tablet, 20 MG PO QDAY, TAB 02/09/18 Aspirin (ASPIR 81) 81 Mg Tablet.dr, 81 MG PO QDAY, TAB 02/09/18 Discontinued Reported Medications Oxygen (OXYGEN) Inha, 2 L INH HS, L 12/09/17 Metoprolol Tartrate (METOPROLOL TARTRATE) 25 Mg Tablet, 1 TAB PO BID, TAB 12/09/17 Nitroglycerin (NITROGLYCERIN) 0.4 Mg Tab.subl, 1 TAB SL Q5MIN Y for chest pain, TAB 12/09/17 Pantoprazole Sodium (PANTOPRAZOLE SODIUM) 40 Mg Tablet.dr, 1 TAB PO QDAY, TAB.SR 12/09/17 Docusate Sodium (COLACE) 100 Mg Capsule, 100 MG PO BID, #30 CAPSULE 09/02/17 Simvastatin (SIMVASTATIN) 40 Mg Tablet, 1 TAB PO QHS, TAB 11/19/16 Tamsulosin Hcl (FLOMAX) 0.4 Mg Cap.er.24h, 1 TAB PO QDAY, #30 CAP 11/14/15 Aspirin (ASPIR 81) 81 Mg Tablet.dr, 1 TAB PO BID 11/12/15 Discontinued Scripts Lisinopril (LISINOPRIL) 10 Mg Tablet, 1 TAB PO QDAY, #90 TAB 3 Refills Prov:DHEERAJ SIMEON MD 12/09/17 Prednisone (PREDNISONE) 20 Mg Tablet, 1 TAB PO DAILY Y for FEVER, #30 TAB 1 Refill Prov:DHEERAJ SIMEON MD 11/08/17 Glipizide (GLIPIZIDE) 5 Mg Tablet, 1 TAB PO QDAY, #90 TAB 3 Refills Prov:DHEERAJ SIMEON MD 11/03/17 Sertraline Hcl (SERTRALINE HCL) 100 Mg Tablet, 1 TAB PO QDAY, #90 TAB 3 Refills Prov:DHEERAJ SIMEON MD 07/22/17 Verapamil Hcl (VERAPAMIL ER) 120 Mg Tablet.er, 1 TAB PO QDAY, #30 TAB 1 Refill Prov:DHEERAJ SIMEON MD 05/03/17 Fluticasone Propionate (Flonase Allergy Relief) 9.9 Ml [place].susp, 1 SPRAY NA QDAY, #1 BOTTLE 3 Refills Prov:DHEERAJ SIMEON MD 04/07/17 Reviewed Nurses Notes: Yes Old Medical Records Reviewed: Yes Hx Smoking: No Smoking Status: Never Smoker Exposure to Second Hand Smoke?: No Hx Substance Use Disorder: No Hx Alcohol Use: No Constitutional Vital Sign - Last 24 Hours 02/09/18 02/09/18 02/09/18 02/09/18 10:46 10:46 10:50 10:50 Temp 98.0 Pulse 55 52 Resp 28 20 B/P (MAP) 193/99 193/99 (130) Pulse Ox 79 98 O2 Delivery Room Air Nasal Cannula O2 Flow Rate 5.0 02/09/18 02/09/18 02/09/18 02/09/18 10:55 11:00 11:00 11:11 Pulse 53 48 Resp 20 15 B/P (MAP) 174/90 (118) Pulse Ox 96 O2 Flow Rate 5.0 02/09/18 02/09/18 02/09/18 02/09/18 11:16 11:39 11:41 11:46 Pulse 47 51 49 Resp 16 20 25 B/P (MAP) 179/81 (113) 146/74 (98) Pulse Ox 96 96 94 02/09/18 02/09/18 02/09/18 02/09/18 11:51 11:56 12:00 12:01 Pulse 48 49 46 Resp 19 25 10 B/P (MAP) 135/69 (91) 149/68 (95) Pulse Ox 93 92 93 02/09/18 02/09/18 02/09/18 02/09/18 12:06 12:07 12:11 12:16 Pulse 46 45 47 Resp 19 19 23 B/P (MAP) 140/71 (94) Pulse Ox 94 94 95 02/09/18 02/09/18 02/09/18 02/09/18 12:21 12:26 12:30 12:31 Pulse 46 48 45 Resp 20 25 20 B/P (MAP) 154/70 (98) Pulse Ox 94 94 95 02/09/18 12:41 Pulse 45 Resp 17 Pulse Ox 95 Physical Exam General Appearance: The patient is alert, has no immediate need for airway protection and no current signs of toxicity. Appears to Eyes: Pupils equal and round no injection. Respiratory: Diminished breath sounds on the right mid lung base mild crackles bibasilar no wheezes no accessory muscle utilization hypoxic set at 74% on room air Cardiac: regular rate and rhythm [ ] Gastrointestinal: Abdomen is soft and non tender, no masses, bowel sounds normal. Musculoskeletal: Neck: Neck is supple and non tender. Extremities have full range of motion and are non tender. Skin: No rashes or lesions. [ ] DIFFERENTIAL DIAGNOSIS: After history and physical exam differential diagnosis was considered for pulmonary embolus COPD CHF myocardial infarction infection Medical Decision Making Data Points Result Diagram: 02/09/18 1055 02/09/18 1055 Laboratory Hematology Test 02/09/18 10:55 02/09/18 11:06 02/09/18 12:35 Red Blood Count 4.79 M/uL (4.00-5.60) Mean Corpuscular Volume 95.5 fL (80.0-96.0) Mean Corpuscular Hemoglobin 32.0 pg (26.0-33.0) Mean Corpuscular Hemoglobin Concent 33.5 g/dL (32.0-36.0) Red Cell Distribution Width 15.2 % (11.5-14.5) Mean Platelet Volume 11.4 fL (7.2-11.1) Neutrophils (%) (Auto) 67.0 % (39.4-72.5) Lymphocytes (%) (Auto) 21.7 % (17.6-49.6) Monocytes (%) (Auto) 7.9 % (4.1-12.4) Eosinophils (%) (Auto) 1.2 % (0.4-6.7) Basophils (%) (Auto) 2.2 % (0.3-1.4) Nucleated RBC Relative Count (auto) 0.1 /100WBC Neutrophils # (Auto) 10.6 K/uL (2.0-7.4) Lymphocytes # (Auto) 3.4 K/uL (1.3-3.6) Monocytes # (Auto) 1.2 K/uL (0.3-1.0) Eosinophils # (Auto) 0.2 K/uL (0.0-0.5) Basophils # (Auto) 0.3 K/uL (0.0-0.1) Nucleated RBC Absolute Count (auto) 0.01 K/uL Peripheral Blood Smear Yes Y/N Prothrombin Time 12.9 seconds (12.0-14.4) Prothromb Time International Ratio 0.97 Activated Partial Thromboplast Time 30 seconds (23-35) D-Dimer Quantitative (PE/DVT) 1.06 ug/ml (0-0.50) Sodium Level 145 mmol/L (137-145) Potassium Level 3.8 mmol/L (3.5-5.0) Chloride Level 108 mmol/L (98-107) Carbon Dioxide Level 27 mmol/L (22-30) Blood Urea Nitrogen 27 mg/dl (9-21) Creatinine 2.00 mg/dl (0.66-1.25) Glomerular Filtration Rate Calc 32.1 Random Glucose 84 mg/dl (75-110) Calcium Level 8.6 mg/dl (8.4-10.2) Total Bilirubin 0.6 mg/dl (0.2-1.3) Aspartate Amino Transf (AST/SGOT) 25 U/L (0-35) Alanine Aminotransferase (ALT/SGPT) 23 U/L (0-56) Alkaline Phosphatase 102 U/L (0-126) B-Type Natriuretic Peptide 1080 pg/ml (0-100) Total Protein 7.1 g/dl (6.3-8.2) Albumin 3.7 g/dl (3.5-5.0) Blood Gas Puncture Site Right radial Blood Gas Patient Temperature 98.0 DEGREES Arterial Blood pH 7.37 (7.35-7.45) Arterial Blood Partial Pressure CO2 38 mmHg (32-37) Arterial Blood Partial Pressure O2 87 mmHg (60-80) Arterial Blood HCO3 22 mmol/L (20-26) Arterial Blood Oxygen Saturation 97 % (92-100) Arterial Blood Base Excess -3.0 mmol/L Lazaro Test Acceptable Oxygen Liters/Minute Room air Troponin I 0.040 ng/ml Chemistry Test 02/09/18 10:55 02/09/18 11:06 02/09/18 12:35 White Blood Count 15.8 k/uL (4.5-11.0) Red Blood Count 4.79 M/uL (4.00-5.60) Hemoglobin 15.3 g/dL (14.0-18.0) Hematocrit 45.8 % (42.0-52.0) Mean Corpuscular Volume 95.5 fL (80.0-96.0) Mean Corpuscular Hemoglobin 32.0 pg (26.0-33.0) Mean Corpuscular Hemoglobin Concent 33.5 g/dL (32.0-36.0) Red Cell Distribution Width 15.2 % (11.5-14.5) Platelet Count 215 K/uL (150-450) Mean Platelet Volume 11.4 fL (7.2-11.1) Neutrophils (%) (Auto) 67.0 % (39.4-72.5) Lymphocytes (%) (Auto) 21.7 % (17.6-49.6) Monocytes (%) (Auto) 7.9 % (4.1-12.4) Eosinophils (%) (Auto) 1.2 % (0.4-6.7) Basophils (%) (Auto) 2.2 % (0.3-1.4) Nucleated RBC Relative Count (auto) 0.1 /100WBC Neutrophils # (Auto) 10.6 K/uL (2.0-7.4) Lymphocytes # (Auto) 3.4 K/uL (1.3-3.6) Monocytes # (Auto) 1.2 K/uL (0.3-1.0) Eosinophils # (Auto) 0.2 K/uL (0.0-0.5) Basophils # (Auto) 0.3 K/uL (0.0-0.1) Nucleated RBC Absolute Count (auto) 0.01 K/uL Peripheral Blood Smear Yes Y/N Prothrombin Time 12.9 seconds (12.0-14.4) Prothromb Time International Ratio 0.97 Activated Partial Thromboplast Time 30 seconds (23-35) D-Dimer Quantitative (PE/DVT) 1.06 ug/ml (0-0.50) Glomerular Filtration Rate Calc 32.1 Calcium Level 8.6 mg/dl (8.4-10.2) Total Bilirubin 0.6 mg/dl (0.2-1.3) Aspartate Amino Transf (AST/SGOT) 25 U/L (0-35) Alanine Aminotransferase (ALT/SGPT) 23 U/L (0-56) Alkaline Phosphatase 102 U/L (0-126) B-Type Natriuretic Peptide 1080 pg/ml (0-100) Total Protein 7.1 g/dl (6.3-8.2) Albumin 3.7 g/dl (3.5-5.0) Blood Gas Puncture Site Right radial Blood Gas Patient Temperature 98.0 DEGREES Arterial Blood pH 7.37 (7.35-7.45) Arterial Blood Partial Pressure CO2 38 mmHg (32-37) Arterial Blood Partial Pressure O2 87 mmHg (60-80) Arterial Blood HCO3 22 mmol/L (20-26) Arterial Blood Oxygen Saturation 97 % (92-100) Arterial Blood Base Excess -3.0 mmol/L Lazaro Test Acceptable Oxygen Liters/Minute Room air Troponin I 0.040 ng/ml Coagulation Test 02/09/18 10:55 Prothrombin Time 12.9 seconds Prothromb Time International Ratio 0.97 Activated Partial Thromboplast Time 30 seconds D-Dimer Quantitative (PE/DVT) 1.06 ug/ml ED Course/Re-evaluation ED Course ED clinical course 82-year-old male comes in with worsening shortness of breath exertional dyspnea orthopnea and mild PND labs show consistency with congestive heart failure BNP is greater than 1001 several months ago is only in the 40s chest x-ray CT confirms fluid overload. Hypertension as well as was treated with IV with by mouth nitroglycerin elevated slight of his d-dimer unable to get angiography secondary to the elevation of his kidney function however this was related to the hospitalist in addition his troponins were trended 0.36 and 0.4 always stable for admission here to be admitted with a diagnosis of CHF exacerbation Decision to Disposition Date: Feb 09, 2018 Decision to Disposition Time: 13:05 Depart Departure Latest Vital Signs Vital Signs Date Time Temp Pulse Resp B/P (MAP) Pulse Ox O2 Delivery O2 Flow Rate FiO2 02/09/18 12:41 45 17 95 02/09/18 12:30 154/70 (98) 02/09/18 10:55 5.0 02/09/18 10:50 Nasal Cannula 02/09/18 10:46 98.0 Impression: Primary Impression: FH: congestive heart failure Condition: Improved Disposition: Admitted from ER Referrals: DHEERAJ SIMEON MD (PCP) ANALIA HOWARD MD Feb 09, 2018 10:54
--- NOTE | 2018-02-09 10:59 | EKG ---
FACILITY: [facility] PATIENT NAME: BETH OGDEN : [id number] MR: [id number] V: [id number] EXAM DATE: ORDERING PHYSICIAN: ANALIA HOWARD TECHNOLOGIST: ANGELA Darling Reason : SOB Blood Pressure : / mmHG Vent. Rate : 050 BPM Atrial Rate : 050 BPM P-R Int : 162 ms QRS Dur : 096 ms QT Int : 502 ms P-R-T Axes : 068 090 049 degrees QTc Int : 457 ms Sinus bradycardia Rightward axis Nonspecific interventricular conduction delay Nonspecific ST abnormality Abnormal ECG Confirmed by HOLLIS GONZALEZ ([id number]) on 02/10/2018 5:37:12 AM Referred By: LEE Confirmed By:HOLLIS GONZALEZ
[2018-02-09 11:05] LABS: PLATELET COUNT, AUTOMATED 215 K/uL (150-450)
[2018-02-09] MEDS ORDERED: SIMV-54 PO (11:12)
[2018-02-09] MEDS ORDERED: FLUT16SP19 NS (11:12)
[2018-02-09] MEDS ORDERED: METO-253 PO (11:12)
[2018-02-09] MEDS ORDERED: ASPI-1471 PO (11:12)
[2018-02-09] MEDS ORDERED: LISI20TA29 PO (11:12)
[2018-02-09] MEDS ORDERED: GLIP-154 PO (11:12)
[2018-02-09] MEDS ORDERED: SERT-173 PO (11:12)
[2018-02-09] MEDS ORDERED: NITROGLYCERIN 0.4 MG SUBL SL ONE (11:40)
[2018-02-09 11:51] LABS: INR 0.97
--- NOTE | 2018-02-09 12:23 | RADIOLOGY IMAGING REPORT ---
FACILITY: [facility] PATIENT NAME: Norberto Pritchett : 1935 MR: [id number] V: [id number] EXAM DATE: ORDERING PHYSICIAN: ANALIA HOWARD TECHNOLOGIST: Location: [facility] Patient: Norberto Pritchett : 1935 Visit/Account:[id number] Date of Sevice: 02/09/2018 CT chest without contrast Indication: Shortness of breath. Comparison: None available Technique: Axial CT images are obtained through the chest without administration of IV contrast. One of the following dose optimization techniques was utilized in the performance of this exam: Autom ated exposure control; adjustment of the mA and/or kV according to the patient's size; or use of an i terative reconstruction technique. Specific details can be referenced in the facility's radiology C T exam operational policy.Reformatted coronal and sagittal images were reviewed. Findings: Heart is normal size without pericardial effusion. Coronary artery calcifications. Aorta shows mild a therosclerotic calcific changes without aneurysm. Pulmonary arteries are grossly normal. The descending and hilar regions show several small lymph nodes. No enlarged lymph node or abnormal d ensity. Small bilateral pleural effusions. No focal consolidation or pneumothorax. The superior aspect of the right lower lobe does show some mild haziness along the bronchovascular distribution without focal a bnormality. Mild scarring seen in the lungs. No discrete nodules or other focal interstitial opacity. Airways are clear. Bony structures show no acute fractures or aggressive bony lesions. Degenerative changes spine. Chest wall shows no enlarged axillary lymph nodes or masses. The posterior left kidney does show a 3 cm cyst. The upper abdomen is otherwise unremarkable. IMPRESSION: 1. Small bilateral pleural effusions. 2. The upper aspect of the right lower lobe does show some mild haziness in the interstitium along th e bronchovascular distribution. No focal consolidation. This nonspecific and could be due to postinfl ammatory changes or early pneumonitis. 3. Left renal cyst. 4. Other chronic findings as above. Report Dictated By: Eric Maldonado at 02/09/2018 12:11 PM Report E-Signed By: Eric Maldonado at 02/09/2018 12:20 PM WSN:[id number]
--- NOTE | 2018-02-09 12:26 | RADIOLOGY IMAGING REPORT ---
FACILITY: [facility] [place] PATIENT NAME: Norberto Pritchett : 1935 MR: [id number] V: [id number] EXAM DATE: ORDERING PHYSICIAN: ANALIA HOWARD TECHNOLOGIST: Location: [facility] Patient: Norberto Pritchett : 1935 Visit/Account:[id number] Date of Sevice: 02/09/2018 2 VIEWS CHEST INDICATION: Shortness of breath. COMPARISON: 12/03/2017. FINDINGS: Cardiomediastinal silhouette and pulmonary vessels within normal limits. There is no focal infiltrate or lobar consolidation. Mild blunting of both costophrenic angle seen on the lateral view consistent small effusion. No pneum othorax. Mild prominence of the interstitium. No focal abnormality. Upper abdomen is unremarkable. No acute bony abnormality. IMPRESSION: 1. Small bilateral pleural effusions. 2. Mild haziness of the interstitium could be secondary to mild edema or pneumonitis. No focal infilt rate. Report Dictated By: Eric Maldonado at 02/09/2018 12:20 PM Report E-Signed By: Eric Maldonado at 02/09/2018 12:22 PM WSN:[id number]
[2018-02-09 13:38] VITALS: BP 163/79
[2018-02-09] MEDS ORDERED: INFLUENZA VIRUS VAC 0.5 ML SYR IM ONLY ONE (14:45)
[2018-02-09] MEDS ORDERED: FLUSH 10 ML SYR IVP PRN (14:45)
--- NOTE | 2018-02-09 15:17 | Pharmacy Note ---
Pharmacy Note Date Provider Notified: Feb 09, 2018 Time Provider Notified: 15:16 Provider Notified: Dr. Reynaldo Douglas Note: Calculated CrCl of 28 ml/min so called to recommend change lovenox to 30 mg sc daily. DOC ONTIVEROS Feb 09, 2018 15:17
--- NOTE | 2018-02-09 15:20 | History & Physical ---
History of Present Illness Chief Complaint Short of breath History of Present Illness 82yo male with PMHx significant for type 2 DM, CAD, COPD, TRICIA on nocturnal oxygen, MGUS, ITP s/p splenectomy, and a recent episode of wide complex tachycardia. He reports increasing dyspnea over past several months with significant worsening over past 4-5 days. He now states he has dyspnea "just getting out of the chair". He did have some episodes of chest pain in the past few month, which were evaluated with cardiology (Dr. Charles). His Lexiscan Myoview showed normal EF with no evidence of ischemia. He had 30 day manager monitoring, which we do not have results, but sounds like he may have had a few episodes of rapid atrial fibrillation by his report. He does describe some orthopnea. He has also had some non-productive cough. He reports taking some bursts of prednisone at least three times over the past month for what he describes as "fevers". He denies any GI symptoms. He denies any new complaints. He does have a history of bladder cancer. He was evaluated in the ER and found to have an elevated BNP and his CXR shows small bilateral pleural effusions with some interstitial prominence. His troponin is slightly elevated as is his d-dimer. He does have chronic renal insufficiency, which is unchanged. He was recommended for admission. 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 (9) Mixed hyperlipidemia Status: Chronic (10) History of splenectomy Status: Chronic (11) History of cataract extraction with lens replacement Status: Chronic (12) Hx of transurethral resection of prostate Status: Chronic (13) Hx of cholecystectomy Status: Chronic (14) Hx of hernia repair Status: Chronic (15) History of lithotripsy Status: Chronic (16) History of Charlene fundoplication Status: Chronic (17) Type 2 diabetes mellitus Status: Chronic (18) CAD (coronary artery disease) Status: Chronic (19) Myocardial infarction Status: Chronic Home Meds Reported Medications Metoprolol Tartrate (METOPROLOL TARTRATE) 50 Mg Tab, 1 TAB PO BID, TAB 02/09/18 Fluticasone Prop 50 Mcg Ns (FLONASE 50 MCG NS) 16 Gm Sand[place].susp, 2 SPRAYS NS QDAY, BOT 02/09/18 Glipizide (GLIPIZIDE) 10 Mg Tablet, 10 MG PO QDAY 02/09/18 Simvastatin (SIMVASTATIN) 40 Mg Tablet, 40 MG PO HS, TAB 02/09/18 Sertraline Hcl (ZOLOFT) 100 Mg Tablet, 1 TAB PO QDAY, TAB 02/09/18 Lisinopril (LISINOPRIL) 20 Mg Tablet, 20 MG PO QDAY, TAB 02/09/18 Aspirin (ASPIR 81) 81 Mg Tablet.dr, 81 MG PO QDAY, TAB 02/09/18 Discontinued Reported Medications Oxygen (OXYGEN) Inha, 2 L INH HS, L 12/09/17 Metoprolol Tartrate (METOPROLOL TARTRATE) 25 Mg Tablet, 1 TAB PO BID, TAB 12/09/17 Nitroglycerin (NITROGLYCERIN) 0.4 Mg Tab.subl, 1 TAB SL Q5MIN Y for chest pain, TAB 12/09/17 Pantoprazole Sodium (PANTOPRAZOLE SODIUM) 40 Mg Tablet.dr, 1 TAB PO QDAY, TAB.SR 12/09/17 Docusate Sodium (COLACE) 100 Mg Capsule, 100 MG PO BID, #30 CAPSULE 09/02/17 Simvastatin (SIMVASTATIN) 40 Mg Tablet, 1 TAB PO QHS, TAB 11/19/16 Tamsulosin Hcl (FLOMAX) 0.4 Mg Cap.er.24h, 1 TAB PO QDAY, #30 CAP 11/14/15 Aspirin (ASPIR 81) 81 Mg Tablet.dr, 1 TAB PO BID 11/12/15 Discontinued Scripts Lisinopril (LISINOPRIL) 10 Mg Tablet, 1 TAB PO QDAY, #90 TAB 3 Refills Prov:DHEERAJ SIMEON MD 12/09/17 Prednisone (PREDNISONE) 20 Mg Tablet, 1 TAB PO DAILY Y for FEVER, #30 TAB 1 Refill Prov:DHEERAJ SIMEON MD 11/08/17 Glipizide (GLIPIZIDE) 5 Mg Tablet, 1 TAB PO QDAY, #90 TAB 3 Refills Prov:DHEERAJ SIMEON MD 11/03/17 Sertraline Hcl (SERTRALINE HCL) 100 Mg Tablet, 1 TAB PO QDAY, #90 TAB 3 Refills Prov:DHEERAJ SIMEON MD 07/22/17 Verapamil Hcl (VERAPAMIL ER) 120 Mg Tablet.er, 1 TAB PO QDAY, #30 TAB 1 Refill Prov:DHEERAJ SIMEON MD 05/03/17 Fluticasone Propionate (Flonase Allergy Relief) 9.9 Ml Sandstone.susp, 1 SPRAY NA QDAY, #1 BOTTLE 3 Refills Prov:DHEERAJ SIMEON MD 04/07/17 Allergies: Coded Allergies: naproxen (Verified Allergy, Severe, anaphylaxis, 03/04/17) codeine (Verified Allergy, Intermediate, RASH, 03/04/17) Penicillins (Verified Allergy, Unknown, rash, 03/04/17) Sulfa (Sulfonamide Antibiotics) (Verified Allergy, Unknown, rash, 03/04/17) Patient History: FH: Alzheimers disease MOTHER, , Age:97 FH: congestive heart failure FATHER, , Age:71 FH: heart disease FATHER, , Age:71 FH: myocardial infarction No significant family history CHILD Hx Smoking: No Smoking Status: Never Smoker Exposure to Second Hand Smoke?: Yes Caffeine Intake: Tea Caffeine/Cups Per Day: 1 GLASS OF TEA, DRINKS WATER NOW Hx Alcohol Use: No Hx Substance Use Disorder: No Social Drug Use: Never Review of Systems Constitutional: Fever, No Chills, No Night Sweats Neurological: No Syncope, No Confusion, No Weakness Eyes: No Vision Change, No Loss of Vision ENT: No Hearing Loss Cardiovascular: Chest Pain, Palpitations, No Orthostatic Hypotension Respiratory: Shortness of Breath, Cough, No Wheezing Gastrointestinal: No Nausea, No Vomiting, No Diarrhea, No Hematemesis, No Hematochezia, No Melena, No Abdominal Pain Genitourinary: No Dysuria, No Hematuria Musculoskeletal: No Pain, No Sprain, No Strain, No Impaired Mobility Psychiatric: No Depression, No Anxiety Exam Vital Signs Vital Signs Date Time Temp Pulse Resp B/P (MAP) Pulse Ox O2 Delivery O2 Flow Rate FiO2 02/09/18 13:38 97.9 46 24 163/79 (107) 96 Nasal Cannula 4.0 General Appearance: Alert, Awake Neuro: No Gross deficits Eyes: PERRLA ENT: Oropharynx Clear Neck: Other (JVD is present) Cardiovascular: Regular Rate and Rhythm (with soft systolic and diastolic murmurs/S3 gallop) Respiratory: Other (few rales at bases) Chest: No Tenderness GI: Abd Soft and Non-Tender : No CVA Tenderness Extremities: Warm, Perfused, Edema (trace pedal edema bilaterally) Integumentary: Generalized Fragile Skin Psych: Alert & Oriented X3 Medical Decision Making Data Points Result Diagram: 02/09/18 1055 02/09/18 1055 Item Value Date Time D-Dimer Quantitative (PE/DVT) 1.06 ug/ml H 02/09/18 1055 Activated Partial Thromboplast Time 30 seconds 02/09/18 1055 Prothromb Time International Ratio 0.97 02/09/18 1055 Prothrombin Time 12.9 seconds 02/09/18 1055 Albumin 3.7 g/dl 02/09/18 1055 Total Protein 7.1 g/dl 02/09/18 1055 Troponin I 0.036 ng/ml 02/09/18 1055 Alkaline Phosphatase 102 U/L 02/09/18 1055 Alanine Aminotransferase (ALT/SGPT) 23 U/L 02/09/18 1055 Aspartate Amino Transf (AST/SGOT) 25 U/L 02/09/18 1055 Total Bilirubin 0.6 mg/dl 02/09/18 1055 Calcium Level 8.6 mg/dl 02/09/18 1055 B-Type Natriuretic Peptide 1080 pg/ml H 02/09/18 1055 Troponin I 0.040 ng/ml 02/09/18 1235 Oxygen Liters/Minute Room air 02/09/18 1106 Lazaro Test Acceptable 02/09/18 1106 Arterial Blood Base Excess -3.0 mmol/L 02/09/18 1106 Arterial Blood Oxygen Saturation 97 % 02/09/18 1106 Arterial Blood HCO3 22 mmol/L 02/09/18 1106 Arterial Blood Partial Pressure O2 87 mmHg H 02/09/18 1106 Arterial Blood Partial Pressure CO2 38 mmHg H 02/09/18 1106 Arterial Blood pH 7.37 02/09/18 1106 Blood Gas Patient Temperature 98.0 DEGREES 02/09/18 1106 Blood Gas Puncture Site Right radial 02/09/18 1106 EKG / Imaging Imaging PATIENT NAME: Norberto Pritchett : 1935 MR: [id number] V: [id number] EXAM DATE: [id number] ORDERING PHYSICIAN: ANALIA HOWARD TECHNOLOGIST: Location: [facility] [place] Patient: Norberto Pritchett : 1935 Visit/Account:[id number] Date of Sevice: 02/09/2018 2 VIEWS CHEST INDICATION: Shortness of breath. COMPARISON: 12/03/2017. FINDINGS: Cardiomediastinal silhouette and pulmonary vessels within normal limits. There is no focal infiltrate or lobar consolidation. Mild blunting of both costophrenic angle seen on the lateral view consistent small effusion. No pneumothorax. Mild prominence of the interstitium. No focal abnormality. Upper abdomen is unremarkable. No acute bony abnormality. IMPRESSION: 1. Small bilateral pleural effusions. 2. Mild haziness of the interstitium could be secondary to mild edema or pneumonitis. No focal infiltrate. Report Dictated By: Eric Maldonado at 02/09/2018 12:20 PM Report E-Signed By: Eric Maldonado at 02/09/2018 12:22 PM WSN:[id number] PATIENT NAME: Norberto Pritchett : 1935 MR: [id number] V: [id number] EXAM DATE: [id number] ORDERING PHYSICIAN: ANALIA HOWARD TECHNOLOGIST: Location: [facility] [place] Patient: Norberto Pritchett : 1935 Visit/Account:[id number] Date of Sevice: 02/09/2018 CT chest without contrast Indication: Shortness of breath. Comparison: None available Technique: Axial CT images are obtained through the chest without administration of IV contrast. One of the following dose optimization techniques was utilized in the performance of this exam: Automated exposure control; adjustment of the mA and/ or kV according to the patient's size; or use of an iterative reconstruction technique. Specific details can be referenced in the facility's radiology CT exam operational policy.Reformatted coronal and sagittal images were reviewed. Findings: Heart is normal size without pericardial effusion. Coronary artery calcifications. Aorta shows mild atherosclerotic calcific changes without aneurysm. Pulmonary arteries are grossly normal. The descending and hilar regions show several small lymph nodes. No enlarged lymph node or abnormal density. Small bilateral pleural effusions. No focal consolidation or pneumothorax. The superior aspect of the right lower lobe does show some mild haziness along the bronchovascular distribution without focal abnormality. Mild scarring seen in the lungs. No discrete nodules or other focal interstitial opacity. Airways are clear. Bony structures show no acute fractures or aggressive bony lesions. Degenerative changes spine. Chest wall shows no enlarged axillary lymph nodes or masses. The posterior left kidney does show a 3 cm cyst. The upper abdomen is otherwise unremarkable. IMPRESSION: 1. Small bilateral pleural effusions. 2. The upper aspect of the right lower lobe does show some mild haziness in the interstitium along the bronchovascular distribution. No focal consolidation. This nonspecific and could be due to postinflammatory changes or early pneumonitis. 3. Left renal cyst. 4. Other chronic findings as above. Report Dictated By: Eric Maldonado at 02/09/2018 12:11 PM Report E-Signed By: Eric Maldonado at 02/09/2018 12:20 PM WSN:[id number] Assessment and Plan Problems: (1) Dyspnea Status: Acute Assessment & Plan: It appears he may have new onset CHF. His recent evaluations did not reveal a significant decrease in function. This may be due to several potential causes - CAD with ischemia vs. untreated TRICIA vs. COPD with chronic hypoxia vs. valvular heart disease (or other). Will check echocardiogram , serial troponins, TSH, monitor for dysrhythmias. Will also check V/Q scan as he does have the elevated d-dimer. It is possible he may have some underlying interstitial lung disease as well (he had many toxic exposures during his work with [employer]). (2) Elevated brain natriuretic peptide (BNP) level Status: Acute Assessment & Plan: Will evaluate as noted above. (3) Type 2 diabetes mellitus Status: Chronic Assessment & Plan: Will continue his usual regimen with glipizide, place on ADA diet, monitor glucoses, and use SSI as needed. (4) Chronic renal disease, stage 3, moderately decreased glomerular filtration rate between 30-59 mL/min/1.73 square meter Status: Chronic Assessment & Plan: His creatinine is just slightly higher than his previous baseline (1.7-1.9). Will watch closely. Modify meds as needed. (5) MGUS (monoclonal gammopathy of unknown significance) Status: Chronic Assessment & Plan: He is followed by [facility] (Dr. Jung Dalal). (6) ITP (idiopathic thrombocytopenic purpura) Status: Chronic Copies to: DHEERAJ SIMEON MD Venous Thromboembolism Antithrombotics Is Pt On Any Antithrombotics?: Yes Exam Sepsis Risk: No Definite Risk HOLLIS GONZALEZ MD Feb 09, 2018 15:20
[2018-02-09] MEDS ORDERED: INSULIN HUM LISPRO 100 UN/ML 3 ML VIAL SUBQ PRN (16:25)
[2018-02-09 18:15] VITALS: BP 165/89
[2018-02-09] MEDS ORDERED: LEVALBUTEROL 0.63 MG/3 ML NEB NEB PRN (20:40)
[2018-02-09] MEDS ORDERED: FUROSEMIDE 20 MG/2 ML VIAL IVP ONE (20:40)
[2018-02-09] MEDS: METOPROLOL TART 50 MG TAB PO SCH (21:00)
[2018-02-09] MEDS: SIMVASTATIN 40 MG TAB PO SCH (21:11)
[2018-02-09 22:32] VITALS: BP 174/74
[2018-02-10 03:06] VITALS: BP 171/79
[2018-02-10 06:09] LABS: PLATELET COUNT, AUTOMATED 195 K/uL (150-450)
[2018-02-10 07:05] VITALS: BP 166/76
[2018-02-10] MEDS: FLUTICASONE PROP 0.05% 16 GM SCH (08:51)
[2018-02-10] MEDS: METOPROLOL TART 50 MG TAB PO SCH (08:51)
[2018-02-10] MEDS: ENOXAPARIN 30 MG/0.3 ML SYR SC SCH (08:51)
[2018-02-10] MEDS: glipiZIDE 5 MG TAB PO SCH (08:51)
[2018-02-10] MEDS: ASPIRIN 81 MG ENTERIC COATED PO SCH (08:51)
[2018-02-10] MEDS: SERTRALINE HCL 50 MG TAB PO SCH (08:51)
[2018-02-10] MEDS ORDERED: LISINOPRIL 20 MG TAB PO SCH (09:00)
[2018-02-10] MEDS ORDERED: ENOXAPARIN 40 MG/0.4ML SYR SC SCH (09:00)
--- NOTE | 2018-02-10 09:33 | RADIOLOGY IMAGING REPORT ---
FACILITY: [facility] [place] PATIENT NAME: Norberto Pritchett : 1935 MR: [id number] V: [id number] EXAM DATE: ORDERING PHYSICIAN: JUAN MERIDA TECHNOLOGIST: Location: [facility] Patient: Norberto Pritchett : 1935 Visit/Account:[id number] Date of Sevice: 02/10/2018 CHEST PA AND LAT INDICATION: Cough COMPARISON: February 09, [address] FINDINGS: The cardiac silhouette is normal in size. No pneumothorax. There is a bandlike opacity projecting over the periphery of the right midlung which is unchanged which represents benign fat bas ed on comparison CT. Clear lungs. No osseous abnormality. Trace to small bibasilar pleural fluid c ollections are unchanged comparing lateral views. IMPRESSION: 1. Trace to small bibasilar pleural fluid collections are unchanged comparing lateral views. 2. No acute finding. See additional comments above. Report Dictated By: Jigar Delatorre MD at 02/10/2018 9:23 AM Report E-Signed By: Jigar Delatorre MD at 02/10/2018 9:29 AM WSN:[email or web address]
--- NOTE | 2018-02-10 10:47 | Hospitalist Progress Note ---
Subjective Progress Notes Subjective He reports much improvement in his WOB and BAH. He is still requiring O2. Physical Exam Vital Signs Date Time Temp Pulse Resp B/P (MAP) Pulse Ox O2 Delivery O2 Flow Rate FiO2 02/10/18 07:06 92 Nasal Cannula 3.0 02/10/18 07:05 98.7 48 20 166/76 (106) Intake and Output 02/11/18 07:00 Intake Total 240 ml Balance 240 ml Intake Oral 240 ml General Appearance: Alert, Awake, No Acute Distress Respiratory: Clear to Auscultation Extremities: No Edema Result Diagram: 02/10/1859902/10/18599 Assessment and Plan Problems: (1) Heart failure with preserved ejection fraction Status: Acute Assessment & Plan: He presented with increasing dyspnea over the past several months and worsening the couple days before admission. It appears he may have new onset CHF. His recent evaluations did not reveal a significant decrease in function. He has new elevation in BNP. Echocardiogram shows a preserved EF, but severe pulmonary hypertension. He is getting V/Q scan as he does have the elevated d-dimer. It is possible he may have some underlying interstitial lung disease as well (he had many toxic exposures during his work with [employer]). He feels much better with IV Lasix. Will give another dose of IV Lasix today and start oral Lasix tomorrow. (2) Elevated troponin Status: Acute Assessment & Plan: Slowing increase and in the borderline significant region. Likely, secondary to CHF exacerbation and having delayed clearing secondary to the CKD. Will follow. No reported cp and ECG without worrisome findings. (3) Type 2 diabetes mellitus Status: Chronic Assessment & Plan: Will continue his usual regimen with glipizide, place on ADA diet, monitor glucoses, and use SSI as needed. (4) Wide-complex tachycardia Status: Chronic Assessment & Plan: Intermittent. No issues since admission. He is followed by Dr. Waters. Presumably, he is on metoprolol for this. Will decreased dose to 25mg bid because of persistent bradycardia. Trying to get most recent note from Dr. Waters (5) Essential hypertension Status: Chronic Assessment & Plan: He chronically take lisinopril and metoprolol. BP elevated. Decreasing metoprolol for bradycardia. See above. He is getting started on oral Lasix. Will follow pressures. (6) Chronic renal disease, stage 3, moderately decreased glomerular filtration rate between 30-59 mL/min/1.73 square meter Status: Chronic Assessment & Plan: His creatinine is at his previous baseline (1.7-1.9). Will watch closely. Modify meds as needed. (7) MGUS (monoclonal gammopathy of unknown significance) Status: Chronic Assessment & Plan: He is followed by [facility] (Dr. Jung Dalal). (8) ITP (idiopathic thrombocytopenic purpura) Status: Chronic Exam Sepsis Risk: No Definite Risk JUAN MERIDA MD Feb 10, 2018 10:47
[2018-02-10 12:03] VITALS: BP 166/77
[2018-02-10 13:11] VITALS: Ht 175.3 cm; Wt 99.8 kg
--- NOTE | 2018-02-10 14:14 | Medical Nutrition Therapy ---
Nutrition Anthropometrics Height (Inches): 69.00 Height (Calculated Centimeters: 175.289495 Weight (Pounds): 221 Weight (Calculated Kilograms): 100.471 BMI: 32.7 Cash Nutrition Score: Adequate Cash Nutrition Risk Score: 19 Dietary Referral Nutrition Risk Factors: Nutrition Risk Comment: Physical Findings Physical Appearance: Obese BMI 30-39 Skin Appearance Skin Appearance: Edema Edema Location Modifier: Both Edema Location: Ankle Type of Edema: Degree of Edema: 2+ Gastrointestinal Symptoms GI Symtoms: Tube Present: Bowel Sounds: Recent Bowel Pattern: Stool Characteristics: Nutrition/Food History pt avoids salt shaker but eats high Na foods at home Breakfast: bautista, waffels Lunch: white castle cheesburger, canned chili, canned soups Dinner: chicken fried steak/fried fish, potaotes, occ vegetables Nutritional Diagnosis Nutritional Risk Acuity 2: CHF w/Complication Nutritional Risk Acuity 3: Fair Appetite Past Medical History: CAD, CKD stage 3B, T2DM, Htn Nutritional Acuity: 2-Moderate Nutrition Diagnosis: Decreased Nutrient Needs Nutrition Etiology: Physiological Causes Nutrition Problem/Etiology/Sym: Decreased Na and fluid needs r/t dx CHF AEB BPN 975. Adjusted Energy Requirement Re: 2500 (H-B adj for obesity) Protein Requirement: 80 (.8gm/kg) Fluid Requirement: 2000 (25/kg IBW) Diet Type: CHF Diet Nutrition Intervention: Cont diet as ordered, Encourage intake Nutritional Education Nutrition Education Topic: Congested Heart Failure Learning Barriers: Cognitive (Age) Learning Readiness: [place] Teaching Methods: Discussion, Handout Response to Teaching: Verbalize understanding (daughter) Teaching Recipient: Patient, Family Nutrition Counseling: Pt and daughter recieved CHF education with review of plate method for diabetes. D/t age and pt's stated BG ranging 100-120's, emphasis was on low Na and fluid intake. Pt states doen't use salt shaker but diet hx indicated pt's diet is typically [id number] convience foods. Cultural diet hx is from [place] with emphasis on fried foods and proccessed meats. Daughter stated pt would probably not make many changes in his current diet. Pt does do simple microwavable meal. is disabled. Discussed ways to decrease Na in several meals he prepares. Nutrition Monitoring & Eval Nutrition Goals: Eat 75-100% Meal, Fluid Restrictions RD Patient Assessment Time: [address] Assessment Type: RD Assessment Patient Nutrition Acuity: 2-Moderate Follow Up Date: Feb 15, 2018 Nutritional Comment: 02/10/18 Pt admitted with CHF. Pt has hx of T2DM. Pt states AM BG runs 100-120's.at home. BG 63-123 in facility. Pt is not currently on CHO controlled diet. Alb 3.4, BUN 25, creatinine 1.9, pt Stage 3B CKD. alb mildly depleted. Will provide adequate but not excessive protein. Pt has 2+ edema to ankles. Anticipate further wt loss when edema resolved. Pt has lost 7# overnight probably r/t fluids. PAULO HARRIS Feb 10, 2018 14:14
[2018-02-10] MEDS ORDERED: FUROSEMIDE 20 MG/2 ML VIAL IVP ONE (14:35)
--- NOTE | 2018-02-10 15:00 | RADIOLOGY IMAGING REPORT ---
FACILITY: [facility] PATIENT NAME: Norberto Pritchett : 1935 MR: [id number] V: [id number] EXAM DATE: ORDERING PHYSICIAN: HOLLIS GONZALEZ TECHNOLOGIST: Location: [facility] [place] Patient: Norberto Pritchett : 1935 Visit/Account:[id number] Date of Sevice: 02/10/2018 LUNG PERFUSION AND VENTILATION INDICATION: Dyspnea, elevated d-dimer COMPARISON: February 10, 2018 radiographs TECHNIQUE: 2.1 mCi technetium 99 M MAA injected for perfusion. 32.7 mCi technetium 99m DTPA utilized for ventilation. FINDINGS: Ventilation is normal. Perfusion is normal without focal defect. IMPRESSION: Normal VQ scan. Report Dictated By: Jigar Delatorre MD at 02/10/2018 2:45 PM Report E-Signed By: Jigar Delatorre MD at 02/10/2018 2:56 PM WSN:[email or web address]
[2018-02-10 16:35] VITALS: BP 156/79
[2018-02-10 20:34] VITALS: BP 170/73
[2018-02-10] MEDS: SIMVASTATIN 40 MG TAB PO SCH (20:35)
[2018-02-10] MEDS ORDERED: METOPROLOL TART 50 MG TAB PO SCH (21:00)
[2018-02-10 23:48] VITALS: BP 186/84
[2018-02-11 05:17] VITALS: BP 180/79
[2018-02-11 05:30] LABS: PLATELET COUNT, AUTOMATED 189 K/uL (150-450)
[2018-02-11] MEDS ORDERED: POTASSIUM CHL 20 MEQ TABCR PO SCH (09:00)
[2018-02-11] MEDS ORDERED: FUROSEMIDE 20 MG TAB PO SCH (09:00)
[2018-02-11] MEDS ORDERED: LISINOPRIL 20 MG TAB PO SCH (09:00)
[2018-02-11] MEDS: FLUTICASONE PROP 0.05% 16 GM SCH (09:05)
[2018-02-11] MEDS: glipiZIDE 5 MG TAB PO SCH (09:05)
[2018-02-11] MEDS: SERTRALINE HCL 50 MG TAB PO SCH (09:06)
[2018-02-11] MEDS: ASPIRIN 81 MG ENTERIC COATED PO SCH (09:06)
[2018-02-11] MEDS: ENOXAPARIN 30 MG/0.3 ML SYR SC SCH (09:07)
--- NOTE | 2018-02-11 09:09 | Hospitalist Progress Note ---
Subjective Progress Notes Subjective This patient was admitted for heart failure. He had no acute events overnight. Patient Complains of: Cardiovascular: No: Chest Pain Respiratory: No: Shortness of Breath Physical Exam Vital Signs Date Time Temp Pulse Resp B/P (MAP) Pulse Ox O2 Delivery O2 Flow Rate FiO2 02/11/18 06:06 47 02/11/18 05:17 98.6 18 180/79 (112) 92 Nasal Cannula 5.0 Cardiovascular: Regular Rate and Rhythm Respiratory: Clear to Auscultation Result Diagram: 02/11/1851202/11/18512 Assessment and Plan Problems: (1) Cor pulmonale, acute Assessment & Plan: He did present with increased shortness of breath and an elevated BNP. His echocardiogram showed findings consistent with pulmonary hypertension. He responded well to IV Lasix. We have started him on scheduled oral Lasix. Daily weights are only mildly improved. We have requested therapy evaluations for today. (2) Pulmonary hypertension, moderate to severe Assessment & Plan: His echocardiogram showed a RVSP of 79mmHg. (3) TRICIA (obstructive sleep apnea) Status: Chronic Assessment & Plan: This is likely the cause of his pulmonary hypertension. He had previously been ordered CPAP, but has been wearing it as prescribed. We have emphasized that he needs to comply with these treatment to prevent further exacerbations of his right heart failure. (4) Elevated troponin Status: Acute Assessment & Plan: His troponin has remained in equivocal range and has not changed in a pattern consistent with infarction. His EKG has only shown nonspecific findings. (5) Type 2 diabetes mellitus Status: Chronic Assessment & Plan: He is on chronic treatment with glipizide. He is on sliding scale level #2, but has not required treatment. (6) Wide-complex tachycardia Status: Chronic Assessment & Plan: He is followed by Dr. Waters. He was on metoprolol, but this has since been discontinued secondary to bradycardia. (7) Essential hypertension Status: Chronic Assessment & Plan: He is on chronic treatment with lisinopril. (8) Chronic renal disease, stage 3, moderately decreased glomerular filtration rate between 30-59 mL/min/1.73 square meter Status: Chronic (9) MGUS (monoclonal gammopathy of unknown significance) Status: Chronic Assessment & Plan: He is followed by [facility] (Dr. Jung Dalal). (10) ITP (idiopathic thrombocytopenic purpura) Status: Chronic Exam Sepsis Risk: No Definite Risk NURIA GARCIA DO Feb 11, 2018 09:09
[2018-02-11 09:19] VITALS: BP 181/80
[2018-02-11] MEDS ORDERED: POTA20TA94 PO (12:17)
[2018-02-11] MEDS ORDERED: FURO-45 PO (12:17)
--- NOTE | 2018-02-11 12:21 | Hospitalist Depart ---
Discharge Summary Reason for Hosp/Final Diag: (1) Cor pulmonale, acute Hospital Course & Plan: He did present with increased shortness of breath and an elevated BNP. His echocardiogram showed findings consistent with pulmonary hypertension. He responded well to IV Lasix. We have started him on scheduled oral Lasix. (2) Pulmonary hypertension, moderate to severe Hospital Course & Plan: His echocardiogram showed a RVSP of 79mmHg. (3) TRICIA (obstructive sleep apnea) Status: Chronic Hospital Course & Plan: This is likely the cause of his pulmonary hypertension. He had previously been ordered CPAP, but has been wearing it as prescribed. He will need to follow up with his primary care physician to arrange for a sleep study so that he can obtain a new device. In the meantime he will continue to wear his oxygen. (4) Elevated troponin Status: Acute Hospital Course & Plan: His troponin has remained in equivocal range and has not changed in a pattern consistent with infarction. His EKG has only shown nonspecific findings. (5) Type 2 diabetes mellitus Status: Chronic Hospital Course & Plan: He is on chronic treatment with glipizide. He is on sliding scale level #2, but has not required treatment. (6) Wide-complex tachycardia Status: Chronic Hospital Course & Plan: He is followed by Dr. Waters. He was on metoprolol, but this has since been discontinued secondary to bradycardia. (7) Essential hypertension Status: Chronic Hospital Course & Plan: He is on chronic treatment with lisinopril. (8) Chronic renal disease, stage 3, moderately decreased glomerular filtration rate between 30-59 mL/min/1.73 square meter Status: Chronic (9) MGUS (monoclonal gammopathy of unknown significance) Status: Chronic Hospital Course & Plan: He is followed by [facility] (Dr. Jung Dalal). (10) ITP (idiopathic thrombocytopenic purpura) Status: Chronic Departure Latest Vital Signs Vital Signs 02/11/18 02/11/18 02/11/18 09:19 09:29 12:10 Temp 97.8 Pulse 55 Resp 18 B/P (MAP) 181/80 (113) Pulse Ox 90 O2 Delivery Nasal Cannula O2 Flow Rate 3.0 Weight (Pounds): 220 Weight (Ounces): 8.0 Result Diagram: 02/11/18 0513 02/11/18512 Condition: Improved Discharge: Home, Self Care Discharge Instructions Home Meds Active Scripts Potassium Chloride (POTASSIUM CHLORIDE) 20 Meq Tab.er.prt, 20 MEQ PO QDAY, #30 TAB Prov:NURIA GARCIA DO 02/11/18 Furosemide (FUROSEMIDE) 20 Mg Tablet, 20 MG PO QDAY, #30 TAB Prov:NURIA GARCIA DO 02/11/18 Reported Medications Fluticasone Prop 50 Mcg Ns (FLONASE 50 MCG NS) 16 Gm [place].susp, 2 SPRAYS NS QDAY, BOT 02/09/18 Glipizide (GLIPIZIDE) 10 Mg Tablet, 10 MG PO QDAY 02/09/18 Simvastatin (SIMVASTATIN) 40 Mg Tablet, 40 MG PO HS, TAB 02/09/18 Sertraline Hcl (ZOLOFT) 100 Mg Tablet, 1 TAB PO QDAY, TAB 02/09/18 Lisinopril (LISINOPRIL) 20 Mg Tablet, 20 MG PO QDAY, TAB 02/09/18 Aspirin (ASPIR 81) 81 Mg Tablet.dr, 81 MG PO QDAY, TAB 02/09/18 Discontinued Reported Medications Metoprolol Tartrate (METOPROLOL TARTRATE) 50 Mg Tab, 1 TAB PO BID, TAB 02/09/18 Oxygen (OXYGEN) Inha, 2 L INH HS, L 12/09/17 Metoprolol Tartrate (METOPROLOL TARTRATE) 25 Mg Tablet, 1 TAB PO BID, TAB 12/09/17 Nitroglycerin (NITROGLYCERIN) 0.4 Mg Tab.subl, 1 TAB SL Q5MIN Y for chest pain, TAB 12/09/17 Pantoprazole Sodium (PANTOPRAZOLE SODIUM) 40 Mg Tablet.dr, 1 TAB PO QDAY, TAB.SR 12/09/17 Docusate Sodium (COLACE) 100 Mg Capsule, 100 MG PO BID, #30 CAPSULE 09/02/17 Simvastatin (SIMVASTATIN) 40 Mg Tablet, 1 TAB PO QHS, TAB 11/19/16 Tamsulosin Hcl (FLOMAX) 0.4 Mg Cap.er.24h, 1 TAB PO QDAY, #30 CAP 11/14/15 Aspirin (ASPIR 81) 81 Mg Tablet., 1 TAB PO BID 11/12/15 Discontinued Scripts Lisinopril (LISINOPRIL) 10 Mg Tablet, 1 TAB PO QDAY, #90 TAB 3 Refills Prov:DHEERAJ SIMEON MD 12/09/17 Prednisone (PREDNISONE) 20 Mg Tablet, 1 TAB PO DAILY Y for FEVER, #30 TAB 1 Refill Prov:DHEERAJ SIMEON MD 11/08/17 Glipizide (GLIPIZIDE) 5 Mg Tablet, 1 TAB PO QDAY, #90 TAB 3 Refills Prov:DHEERAJ SIMEON MD 11/03/17 Sertraline Hcl (SERTRALINE HCL) 100 Mg Tablet, 1 TAB PO QDAY, #90 TAB 3 Refills Prov:DHEERAJ SIMEON MD 07/22/17 Verapamil Hcl (VERAPAMIL ER) 120 Mg Tablet.er, 1 TAB PO QDAY, #30 TAB 1 Refill Prov:DHEERAJ SIMEON MD 05/03/17 Fluticasone Propionate (Flonase Allergy Relief) 9.9 Ml [place].susp, 1 SPRAY NA QDAY, #1 BOTTLE 3 Refills Prov:DHEERAJ SIMEON MD 04/07/17 Diet: Diabetic Activity: As Tolerated Copies to: DHEERAJ SIMEON MD Venous Thromboembolism Antithrombotics Is Pt On Any Antithrombotics?: Yes NURIA GARCIA DO Feb 11, 2018 12:21
== END 2018-02-11 14:36 | disposition home or self-care (01) | DRG 291 ==
LOC: ER 10:46 → INTOOBSV 13:12 → UNDOADMOB 13:12 → MED 13:12 → OBSVTOIN 02-10 → INTOOBSV 02-10
PROVIDERS: ADMIT Internal Medicine; ATTEND Internal Medicine
DX: I13.0 Hypertensive heart and chronic kidney disease with heart failure and stage 1 through stage 4 chronic kidney disease, or unspecified chronic kidney disease (principal); I50.31 Acute diastolic (congestive) heart failure; D69.3 Immune thrombocytopenic purpura; I27.81 Cor pulmonale (chronic); I27.29 Other secondary pulmonary hypertension; E11.22 Type 2 diabetes mellitus with diabetic chronic kidney disease; N18.3 Chronic kidney disease, stage 3 (moderate); I25.10 Atherosclerotic heart disease of native coronary artery without angina pectoris; G47.33 Obstructive sleep apnea (adult) (pediatric); D47.2 Monoclonal gammopathy; R00.0 Tachycardia, unspecified; K21.9 Gastro-esophageal reflux disease without esophagitis; R09.02 Hypoxemia; E11.40 Type 2 diabetes mellitus with diabetic neuropathy, unspecified; E78.2 Mixed hyperlipidemia; Z99.81 Dependence on supplemental oxygen; Z90.49 Acquired absence of other specified parts of digestive tract; I25.2 Old myocardial infarction; Z88.0 Allergy status to penicillin; Z88.2 Allergy status to sulfonamides; Z88.8 Allergy status to other drugs, medicaments and biological substances; Z79.84 Long term (current) use of oral hypoglycemic drugs
CPT/HCPCS: 36415; 36416; 36600; 71046; 71250; 78582; 82040; 82247; 82310; 82374; 82435; 82565; 82803; 82947; 82948; 83880; 84075; 84132; 84155; 84295; 84443; 84450; 84460; 84484; 84520; 85025; 85379; 85610; 85730; 87040; 93005; 93306; 94640; 97161; 97165; 99284; A9540; A9567; G0378; J1650; J1940; J7614

== ENCOUNTER 2018-02-11 14:32 | Outpatient (RCR) | payer MEDICARE, BC ==
[2018-02-10 13:11] VITALS: BMI 32.6
[~2018-02-11 14:32] MED LIST changes: +FLUT16SP19 NS; +FURO-45 PO; +METO-253 PO; +SERT-173 PO
--- NOTE | 2018-02-12 12:49 | Transitional Care Management ---
Assessment Visit Type: Home Visit Spoke with: called then visited with Yandel Cardiac: IDALMIS Cardiac Comment: 02/12 feels tired this am after just a shower. Did not take metoprolol as it has been dc and he removed it from his pill wedding planner while I was observing Respiratory: WNDavid Respiratory Comment: 02/12 states he used O2 at 5 L , instead of 2 L, last pm as instructed. states he slept through night without awakening as usual. Enc that he will cont to sleep better without tiredness thru day when sleep study complete and he can wear CPAP GI: Nutrition: WNL Except GI Comment: 02/12 states he will not add salt to foods. Common breakfast is instant grits but, it has salt and he will cook grits from scratch to avoid the salt. Likes bautista and has already cut back from 4 slices to 2 but is willing to try low salt bautista. LIkes canned soups and chili but is willing to try healty choice brands. Shannon does his shopping and will buy low salt foods; she read labels with me and identified high salt contents in his foods. BS was 114 this am and avg is 118 for the week; he has a talking meter and takes it to MD appt to review with PCP. Wt Gain/Loss: WNL Except Weight Comment: 02/12 discuss getting a scale yesterday and january states she will get him one. Stressed importance of wt qam : WNL Except Comment: 02/12 states Medina put him on flomax but he stopped because it can have a lot of side effects. Enc him to discuss with MD before dc a med Musculoskeletal, Exercise: WNL Except Musculoskeletal, Excercise Com: 02/12 feels tired this am but states he wants to go down pastor to do laundry. Enc him to walk halls at [facility] as its hot outside. Feeling of Well Being: WNL Feeling of Well Being Comment: 02/12 good to be home with who has dementia; he is primary caregiver. States he made deal with God that he could take care of her until she . Understands importance of taking care of self so he can take care of her Pain/Management: WNL Scheduled Follow-Up with Provi: Yes Community Resources/HHC: 02/12 sees Nacho on 02/16 at 10:30. Enc him to take his meds as his doses are different than on his list provided at hospital. Dr Waters 03/09; gave him dc note to give to MD. Has to schedule visit with Khanh to review his labs. SREEKANTH coming to home to help get more care or covered care as they are paying privately for Shannon to come help daily. Needed or Pending Tests: Yes (sleep study) TCM Discharge Criteria Medication Knowledge: 02/12 does not know how to pronounce medication names but when he opens the bottle he can tell me what the med is for and that he used to b e on a different dose that the MD changed Has new lasix that he calls his water pill. Used to take potassium and knows he can break the pill in half; denies stomach upset when he took it an hour before breakfast. He told me Dr Quarles took him off a blood thinner and told him to take baby ASA bid (our order has qd). Enc him to verify with MD at next visit and change his list that he carries in his wallet. States his glipizide was changed to 5 mg in October when his last A1C was only 5.1. His lisinopril bottle is 10mg and he states the MD changed that also. He removed the metoprolol from the wedding planner during my visit. Disease Management/Concern/Wha: 02/12 Able to tell me s/s to call MD or go to hospital. Plan to reduce sodium and fluids to 2L a day. States he drinks lots of tea and this will be difficult but he will try. Suggested he use smaller glasses. Red/Yellow Flags: CHF Transitional Care Comment: 02/11 new dx CHF. review self care, new meds, dz process, diet, daily wt and he verbalize understand. repeat back used. 02/12 Not adding salt but eats lots of prepared, canned or frozen meals. Discuss substitutions and ways to reduce NA intake and to limit fluids Copies to: DHEERAJ SIMEON MD, GENEVA E Feb 12, 2018 12:49
[2018-02-16] MEDS ORDERED: POTA20TA94 PO (10:59)
[2018-02-16] MEDS ORDERED: FURO-45 PO (10:59)
[2018-02-16] MEDS ORDERED: OXYGENHOME INH (11:02)
--- NOTE | 2018-02-17 13:54 | Transitional Care Management ---
Assessment Visit Type: Telephone Visit (02/17 Norberto) Cardiac: WNL Except Cardiac Comment: 02/12 feels tired this am after just a shower. Did not take metoprolol as it has been dc and he removed it from his pill principal planner while I was observing 02/17 Still feel weak but saw yesterday and she stated his heart was doing OK, Has a sleep study arranged for Apr 06 Respiratory: WNL Respiratory Comment: 02/12 states he used O2 at 5 L , instead of 2 L, last pm as instructed. states he slept through night without awakening as usual. Enc that he will cont to sleep better without tiredness thru day when sleep study complete and he can wear CPAP. 02/17 Still needs O2 at 5L with activity but then turns back down to 3L ans 5 L HS. Sleep study 04/06 GI: Nutrition: WNL Except GI Comment: 02/12 states he will not add salt to foods. Common breakfast is instant grits but, it has salt and he will cook grits from scratch to avoid the salt. Likes bautista and has already cut back from 4 slices to 2 but is willing to try low salt bautista. LIkes canned soups and chili but is willing to try healty choice brands. Shannon does his shopping and will buy low salt foods; she read labels with me and identified high salt contents in his foods. BS was 114 this am and avg is 118 for the week; he has a talking meter and takes it to MD appt to review with PCP. 02/17 BS 112 this am. He does his BS once day in AM Wt Gain/Loss: WNL Except Weight Comment: 02/12 discuss getting a scale yesterday and ottonieljanuary states she will get him one. Stressed importance of wt qam 02/17 daughter brought hims a scale and he has been weighting qd was sown ti 215# today. He also ecords his BS qd to take to DR. IZQUIERDO: WNL Except Comment: 02/12 states Medina put him on flomax but he stopped because it can have a lot of side effects. Enc him to discuss with MD before dc a med Musculoskeletal, Exercise: WNL Except Musculoskeletal, Excercise Com: 02/12 feels tired this am but states he wants to go down pastor to do laundry. Enc him to walk halls at [facility] as its hot outside. 02/17 Getting exercise by walking in the halls at the [facility]. 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 Feeling of Well Being: WNL Feeling of Well Being Comment: 02/12 good to be home with who has dementia; he is primary caregiver. States he made deal with God that he could take care of her until she . Understands importance of taking care of self so he can take care of her Pain/Management: WNL Scheduled Follow-Up with Provi: Yes Community Resources/[facility]: 02/12 sees Allais on 02/16 at 10:30. Enc him to take his meds as his doses are different than on his list provided at hospital. Dr Waters 03/09; gave him dc note to give to MD. Has to schedule visit with Khanh to review his labs. SREEKANTH coming to home to help get more care or covered care as they are paying privately for Shannon to come help daily. Needed or Pending Tests: Yes (sleep study 02/17 Sleep study 04/06) TCM Discharge Criteria Medication Knowledge: 02/12 does not know how to pronounce medication names but when he opens the bottle he can tell me what the med is for and that he used to b e on a different dose that the MD changed Has new lasix that he calls his water pill. Used to take potassium and knows he can break the pill in half; denies stomach upset when he took it an hour before breakfast. He told me Dr Quarles took him off a blood thinner and told him to take baby ASA bid (our order has qd). Enc him to verify with MD at next visit and change his list that he carries in his wallet. States his glipizide was changed to 5 mg in October when his last A1C was only 5.1. His lisinopril bottle is 10mg and he states the MD changed that also. He removed the metoprolol from the principal planner during my visit. Disease Management/Concern/Wha: 02/12 Able to tell me s/s to call MD or go to hospital. Plan to reduce sodium and fluids to 2L a day. States he drinks lots of tea and this will be difficult but he will try. Suggested he use smaller glasses. Red/Yellow Flags: CHF 02/17 Red/yellow flags of CHF and the imortance of qd wts and documenting. BS qd and documenting to take to or call DR if out of range Transitional Care Comment: 02/11 new dx CHF. review self care, new meds, dz process, diet, daily wt and he verbalize understand. repeat back used. 02/12 Not adding salt but eats lots of prepared, canned or frozen meals. Discuss substitutions and ways to reduce NA intake and to limit fluids 02/17 working hard to change to low sodium diet along with his diabetic diet. Copies to: DHEERAJ SIMEON MD, JOAN Feb 17, 2018 13:54
--- NOTE | 2018-02-28 13:32 | Transitional Care Management ---
Assessment Visit Type: Telephone Visit Spoke with: Yandel Cardiac: WNL Except Cardiac Comment: 02/12 feels tired this am after just a shower. Did not take metoprolol as it has been dc and he removed it from his pill meeting planner while I was observing 02/17 Still feel weak but saw yesterday and she stated his heart was doing OK, Has a sleep study arranged for Apr 06 Respiratory: WNL Except Respiratory Comment: 02/12 states he used O2 at 5 L , instead of 2 L, last pm as instructed. states he slept through night without awakening as usual. Enc that he will cont to sleep better without tiredness thru day when sleep study complete and he can wear CPAP. 02/17 Still needs O2 at 5L with activity but then turns back down to 3L ans 5 L HS. Sleep study 04/06 02/28 Only wearing oxygen 5L at night. He does not check his pulse ox, but feels good on room air during the day. GI: Nutrition: WNL Except GI Comment: 02/12 states he will not add salt to foods. Common breakfast is instant grits but, it has salt and he will cook grits from scratch to avoid the salt. Likes bautista and has already cut back from 4 slices to 2 but is willing to try low salt bautista. LIkes canned soups and chili but is willing to try healty choice brands. Shannon does his shopping and will buy low salt foods; she read labels with me and identified high salt contents in his foods. BS was 114 this am and avg is 118 for the week; he has a talking meter and takes it to MD appt to review with PCP. 02/17 BS 112 this am. He does his BS once day in AM 02/28 BS 104 today. reviewed low sodium and fluid restriction. Wt Gain/Loss: WNL Except Weight Comment: 02/12 discuss getting a scale yesterday and january states she will get him one. Stressed importance of wt qam 02/17 daughter brought hims a scale and he has been weighting qd was sown ti 215# today. He also ecords his BS qd to take to 02/28 Weighing daily, 209 lbs today. Reviewed red and yellow flags. : WNL Except Comment: 02/12 states [facility] put him on flomax but he stopped because it can have a lot of side effects. Enc him to discuss with MD before dc a med 02/28 I reinforced the need for continued lasix, and potassium regimen. He asked when he could stop the lasix, and why he was on potassium. 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 Enc him to walk halls at [facility] as its hot outside. 02/17 Getting exercise by walking in the halls at the [facility]. 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 Mobility/Falls: WNL Feeling of Well Being: WNL Feeling of Well Being Comment: 02/12 good to be home with who has dementia; he is primary caregiver. States he made deal with God that he could take care of her until she . Understands importance of taking care of self so he can take care of her Pain/Management: WNL Scheduled Follow-Up with Provi: Yes (02/[address] Ospina (cardiology) 03/09, and Dr Adams the next week.) Community Resources/[facility]: 02/12 sees Nacho on 02/16 at 10:30. Enc him to take his meds as his doses are different than on his list provided at hospital. Dr Waters 03/09; gave him dc note to give to MD. Has to schedule visit with Khanh to review his labs. SREEKANTH coming to home to help get more care or covered care as they are paying privately for Shannon to come help daily. Needed or Pending Tests: Yes (Sleep study 04/06) TCM Discharge Criteria Medication Knowledge: 02/12 does not know how to pronounce medication names but when he opens the bottle he can tell me what the med is for and that he used to b e on a different dose that the MD changed Has new lasix that he calls his water pill. Used to take potassium and knows he can break the pill in half; denies stomach upset when he took it an hour before breakfast. He told me Dr Quarles took him off a blood thinner and told him to take baby ASA bid (our order has qd). Enc him to verify with MD at next visit and change his list that he carries in his wallet. States his glipizide was changed to 5 mg in October when his last A1C was only 5.1. His lisinopril bottle is 10mg and he states the MD changed that also. He removed the metoprolol from the meeting planner during my visit. Disease Management/Concern/Wha: 02/12 Able to tell me s/s to call MD or go to hospital. Plan to reduce sodium and fluids to 2L a day. States he drinks lots of tea and this will be difficult but he will try. Suggested he use smaller glasses. Red/Yellow Flags: CHF 02/17 Red/yellow flags of CHF and the imortance of qd wts and documenting. BS qd and documenting to take to or call DR if out of range Transitional Care Comment: 02/11 new dx CHF. review self care, new meds, dz process, diet, daily wt and he verbalize understand. repeat back used. 02/12 Not adding salt but eats lots of prepared, canned or frozen meals. Discuss substitutions and ways to reduce NA intake and to limit fluids 02/17 working hard to change to low sodium diet along with his diabetic diet. 02/25 Unable to contact. 02/28 Reviewed CHF red/yellow flags. His weight is down to 209, BS stable. He is not wearing O2 during the day, does not check O2 sats, but feels good. I encouraged him to keep wearing O2 until he sees his Dr and need is evaluated. SARAH KELLEY Feb 28, 2018 13:32
--- NOTE | 2018-03-07 12:07 | Transitional Care Management ---
Assessment Cardiac: WNL Except Cardiac Comment: 02/12 feels tired this am after just a shower. Did not take metoprolol as it has been dc and he removed it from his pill media planner while I was observing 02/17 Still feel weak but saw yesterday and she stated his heart was doing OK, Has a sleep study arranged for Apr 0603/07 Appt with Manager Wound on Wednesday 03/07 Respiratory: WNL Except Respiratory Comment: 02/12 states he used O2 at 5 L , instead of 2 L, last pm as instructed. states he slept through night without awakening as usual. Enc that he will cont to sleep better without tiredness thru day when sleep study complete and he can wear CPAP. 02/17 Still needs O2 at 5L with activity but then turns back down to 3L ans 5 L HS. Sleep study 04/06 02/28 Only wearing oxygen 5L at night. He does not check his pulse ox, but feels good on room air during the day. 03/07 Sats 93% on RA, wears 5L at NOC. Denies SOB. GI: Nutrition: WNL Except GI Comment: 02/12 states he will not add salt to foods. Common breakfast is instant grits but, it has salt and he will cook grits from scratch to avoid the salt. Likes bautista and has already cut back from 4 slices to 2 but is willing to try low salt bautista. LIkes canned soups and chili but is willing to try healty choice brands. Shannon does his shopping and will buy low salt foods; she read labels with me and identified high salt contents in his foods. BS was 114 this am and avg is 118 for the week; he has a talking meter and takes it to MD appt to review with PCP. 02/17 BS 112 this am. He does his BS once day in AM 02/28 BS 104 today. reviewed low sodium and fluid restriction. Wt Gain/Loss: WNL Weight Comment: 02/12 discuss getting a scale yesterday and january states she will get him one. Stressed importance of wt qam 02/17 daughter brought hims a scale and he has been weighting qd was sown ti 215# today. He also ecords his BS qd to take to . 02/28 Weighing daily, 209 lbs today. Reviewed red and yellow flags. 03/07 He has been weighing with his clothes, in the mid-morning, 214lbs today. Educated him on weighing first thing in the morning, after voiding, with similar clothing. Constipation?: No : WNL Except Comment: 02/12 states [facility] put him on flomax but he stopped because it can have a lot of side effects. Enc him to discuss with MD before dc a med 02/28 I reinforced the need for continued lasix, and potassium regimen. He asked when he could stop the lasix, and why he was on potassium. 03/07 Continues to take lasix and potassium as prescribed. 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 Enc him to walk halls at [facility] as its hot outside. 02/17 Getting exercise by walking in the halls at the [facility]. 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 03/07 He is active and tollerates it well. Mobility/Falls: WNL Feeling of Well Being: WNL Feeling of Well Being Comment: 02/12 good to be home with who has dementia; he is primary caregiver. States he made deal with God that he could take care of her until she . Understands importance of taking care of self so he can take care of her Pain/Management: WNL Scheduled Follow-Up with Provi: Yes (02/[address] Ospina (cardiology) 03/09, and Dr Adams the next week.) Community Resources/[facility]: 02/12 sees Nacho on 02/16 at 10:30. Enc him to take his meds as his doses are different than on his list provided at hospital. Dr Waters 03/09; gave him dc note to give to MD. [facility] SREEKANTH coming to home to help get more care or covered care as they are paying privately for Shannon to come help daily. Needed or Pending Tests: Yes (Sleep study 04/06) Following Discharge Instructio: Yes TCM Discharge Criteria Medication Knowledge: 02/12 does not know how to pronounce medication names but when he opens the bottle he can tell me what the med is for and that he used to b e on a different dose that the MD changed Has new lasix that he calls his water pill. Used to take potassium and knows he can break the pill in half; denies stomach upset when he took it an hour before breakfast. He told me Dr Quarles took him off a blood thinner and told him to take baby ASA bid (our order has qd). Enc him to verify with MD at next visit and change his list that he carries in his wallet. States his glipizide was changed to 5 mg in October when his last A1C was only 5.1. His lisinopril bottle is 10mg and he states the MD changed that also. He removed the metoprolol from the media planner during my visit. Disease Management/Concern/Wha: 02/12 Able to tell me s/s to call MD or go to hospital. Plan to reduce sodium and fluids to 2L a day. States he drinks lots of tea and this will be difficult but he will try. Suggested he use smaller glasses. Red/Yellow Flags: CHF 02/17 Red/yellow flags of CHF and the imortance of qd wts and documenting. BS qd and documenting to take to or call DR if out of range Transitional Care Comment: 02/11 new dx CHF. review self care, new meds, dz process, diet, daily wt and he verbalize understand. repeat back used. 02/12 Not adding salt but eats lots of prepared, canned or frozen meals. Discuss substitutions and ways to reduce NA intake and to limit fluids 02/17 working hard to change to low sodium diet along with his diabetic diet. 02/25 Unable to contact. 02/28 Reviewed CHF red/yellow flags. His weight is down to 209, BS stable. He is not wearing O2 during the day, does not check O2 sats, but feels good. I encouraged him to keep wearing O2 until he sees his Dr and need is evaluated. 03/07 Reviewed the importance of daily weights to be done first thing in the morning. Sats 93% on RA. SARAH KELLEY Mar 07, 2018 12:07
--- NOTE | 2018-03-15 14:14 | Transitional Care Management ---
Assessment Visit Type: Telephone Visit Spoke with: Yandel Cardiac: WNL Except Cardiac Comment: 02/12 feels tired this am after just a shower. Did not take metoprolol as it has been dc and he removed it from his pill telecommunications network planner while I was observing 02/17 Still feel weak but saw yesterday and she stated his heart was doing OK, Has a sleep study arranged for Apr 0603/07 Appt with Labor Service Representative on 03/07 review BNP went from over 1000 in hospital to 48 on 03/09. Denies s/s CHF Respiratory: WNL Except Respiratory Comment: 02/12 states he used O2 at 5 L , instead of 2 L, last pm as instructed. states he slept through night without awakening as usual. Enc that he will cont to sleep better without tiredness thru day when sleep study complete and he can wear CPAP. 02/17 Still needs O2 at 5L with activity but then turns back down to 3L ans 5 L HS. Sleep study 04/06 02/28 Only wearing oxygen 5L at night. He does not check his pulse ox, but feels good on room air during the day. 03/07 Sats 93% on RA, wears 5L at NOC. Denies SOB. 03/15 no SOB or cough. States only naps for brief periods during day and up in chair; does not wear O2 during day. Sleeps good at hs with his 5 L GI: Nutrition: WNL Except GI Comment: 02/12 states he will not add salt to foods. Common breakfast is instant grits but, it has salt and he will cook grits from scratch to avoid the salt. Likes bautista and has already cut back from 4 slices to 2 but is willing to try low salt bautista. LIkes canned soups and chili but is willing to try healty choice brands. Shannon does his shopping and will buy low salt foods; she read labels with me and identified high salt contents in his foods. BS was 114 this am and avg is 118 for the week; he has a talking meter and takes it to MD appt to review with PCP. 02/17 BS 112 this am. He does his BS once day in AM 02/28 BS 104 today. reviewed low sodium and fluid restriction. 03/15 reports he eats only 2 slices (was 4) of bautista that are smaller in size and "loves grits". Raj made homemade chili without salt that he likes. Less salt and less than 2 L fluids a day Wt Gain/Loss: WNL Weight Comment: 02/12 discuss getting a scale yesterday and raj January states she will get him one. Stressed importance of wt qam 02/17 daughter brought hims a scale and he has been weighting qd was sown ti 215# today. He also ecords his BS qd to take to 02/28 Weighing daily, 209 lbs today. Reviewed red and yellow flags. 03/07 He has been weighing with his clothes, in the mid-morning, 214lbs today. Educated him on weighing first thing in the morning, after voiding, with similar clothing. 03/15 wt remains 212. Wants to loose and enc to walk twice a day when wifes caregiver is there. He ususlly walks the pastor once a day Constipation?: No : WNL Except Comment: 02/12 states [facility] put him on flomax but he stopped because it can have a lot of side effects. Enc him to discuss with MD before dc a med 02/28 I reinforced the need for continued lasix, and potassium regimen. He asked when he could stop the lasix, and why he was on potassium. 03/07 Continues to take lasix and potassium as prescribed. 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 Enc him to walk halls at [facility] as its hot outside. 02/17 Getting exercise by walking in the halls at the [facility]. 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 03/07 He is active and tollerates it well. Mobility/Falls: WNL Feeling of Well Being: WNL Feeling of Well Being Comment: 02/12 good to be home with who has dementia; he is primary caregiver. States he made deal with God that he could take care of her until she . Understands importance of taking care of self so he can take care of her 03/15 states he feels really good Pain/Management: WNL Pain/Management Comment: 03/15 states back pain is better since he's lost wt. Scheduled Follow-Up with [facility]: Yes (02/[address] Ospina (cardiology) 03/09, and Dr Adams the next week.) Community Resources/[facility]: 02/12 sees Manuelchasity on 02/16 at 10:30. Enc him to take his meds as his doses are different than on his list provided at hospital. Dr Waters 03/09; gave him dc note to give to MD. Has to schedule visit with [facility] to review his labs. SREEKANTH coming to home to help get more care or covered care as they are paying privately for Shannon to come help daily. 03/15 sees Nacho on 03/17. Questions for Future PCP Visit: 03/15 MD notes say he takes lisinopril 20mg qd but he states he only takes 10mg. MD note states glipizide is 10mg a day and he states he was told to take 5 mg qday He was told to keep taking his lasix 20 and potassium 20 daily but they were not available at pharmacy and his 30 day supply is done today. Needed or Pending Tests: Yes (Sleep study 04/06) Following Discharge Instructio: Yes TCM Discharge Criteria Medication Knowledge: 02/12 does not know how to pronounce medication names but when he opens the bottle he can tell me what the med is for and that he used to b e on a different dose that the MD changed Has new lasix that he calls his water pill. Used to take potassium and knows he can break the pill in half; denies stomach upset when he took it an hour before breakfast. He told me Dr Quarles took him off a blood thinner and told him to take baby ASA bid (our order has qd). Enc him to verify with MD at next visit and change his list that he carries in his wallet. States his glipizide was changed to 5 mg in October when his last A1C was only 5.1. His lisinopril bottle is 10mg and he states the MD changed that also. He removed the metoprolol from the telecommunications network planner during my visit. 03/15 Is out of lasix and potassium RX from hospital dc. Was told to take them but they are not available at his pharmacy. Enc him to ask at his MD appt in 2 days Disease Management/Concern/Wha: 02/12 Able to tell me s/s to call MD or go to hospital. Plan to reduce sodium and fluids to 2L a day. States he drinks lots of tea and this will be difficult but he will try. Suggested he use smaller glasses. 03/15 review s/s and he states "I'm gonna watch it". Red/Yellow Flags: CHF 02/17 Red/yellow flags of CHF and the imortance of qd wts and documenting. BS qd and documenting to take to or call DR if out of range Transitional Care Comment: 02/11 new dx CHF. review self care, new meds, dz process, diet, daily wt and he verbalize understand. repeat back used. 02/12 Not adding salt but eats lots of prepared, canned or frozen meals. Discuss substitutions and ways to reduce NA intake and to limit fluids 02/17 working hard to change to low sodium diet along with his diabetic diet. 02/25 Unable to contact. 02/28 Reviewed CHF red/yellow flags. His weight is down to 209, BS stable. He is not wearing O2 during the day, does not check O2 sats, but feels good. I encouraged him to keep wearing O2 until he sees his Dr and need is evaluated. 03/07 Reviewed the importance of daily weights to be done first thing in the morning. Sats 93% on RA. 03/15 Ran out of meds today but, sees MD in 2 day. Has decreased NA and fluids, wt qday, walks dailyand aware of s/s to report. Feels better and happy labs look better. Copies to: DHEERAJ SIMEON MD, GENEVA E Mar 15, 2018 14:14
[2018-03-17] MEDS ORDERED: FURO-45 PO (11:43)
[2018-03-17] MEDS ORDERED: POTA20TA94 PO (11:43)
--- NOTE | 2018-03-22 10:32 | Transitional Care Management ---
Assessment Visit Type: Telephone Visit Spoke with: Yandel Cardiac: WNL Except Cardiac Comment: 02/12 feels tired this am after just a shower. Did not take metoprolol as it has been dc and he removed it from his pill shoe lay out planner while I was observing 02/17 Still feel weak but saw yesterday and she stated his heart was doing OK, Has a sleep study arranged for Apr 0603/07 Appt with [employer] on 03/07 review BNP went from over 1000 in hospital to 48 on 03/09. Denies s/s CHF 03/22 Denies edema or bloating, knows to report this sign of CHF to MD early Respiratory: WNL Except Respiratory Comment: 02/12 states he used O2 at 5 L , instead of 2 L, last pm as instructed. states he slept through night without awakening as usual. Enc that he will cont to sleep better without tiredness thru day when sleep study complete and he can wear CPAP. 02/17 Still needs O2 at 5L with activity but then turns back down to 3L ans 5 L HS. Sleep study 04/06 02/28 Only wearing oxygen 5L at night. He does not check his pulse ox, but feels good on room air during the day. 03/07 Sats 93% on RA, wears 5L at NOC. Denies SOB. 03/15 no SOB or cough. States only naps for brief periods during day and up in chair; does not wear O2 during day. Sleeps good at hs with his 5 L 03/22 states the O2 "really helped" his ability to sleep at hs. No sob or copd sx GI: Nutrition: WNL Except GI Comment: 02/12 states he will not add salt to foods. Common breakfast is instant grits but, it has salt and he will cook grits from scratch to avoid the salt. Likes bautista and has already cut back from 4 slices to 2 but is willing to try low salt bautista. LIkes canned soups and chili but is willing to try healty choice brands. Shannon does his shopping and will buy low salt foods; she read labels with me and identified high salt contents in his foods. BS was 114 this am and avg is 118 for the week; he has a talking meter and takes it to MD appt to review with PCP. 02/17 BS 112 this am. He does his BS once day in AM 02/28 BS 104 today. reviewed low sodium and fluid restriction. 03/15 reports he eats only 2 slices (was 4) of bautista that are smaller in size and "loves grits". Raj made homemade chili without salt that he likes. Less salt and less than 2 L fluids a day 03/22 No more ice tea; drank a gallon a day with sugar in it. Drinking lemonade. Glucometer to MD with weekly avg of 111. Reading labels and avoiding salt "Its in everything" Wt Gain/Loss: WNL Weight Comment: 02/12 discuss getting a scale yesterday and raj January states she will get him one. Stressed importance of wt qam 02/17 daughter brought hims a scale and he has been weighting qd was sown ti 215# today. He also ecords his BS qd to take to . 02/28 Weighing daily, 209 lbs today. Reviewed red and yellow flags. 03/07 He has been weighing with his clothes, in the mid-morning, 214lbs today. Educated him on weighing first thing in the morning, after voiding, with similar clothing. 03/15 wt remains 212. Wants to loose and enc to walk twice a day when wifes caregiver is there. He ususlly walks the pastor once a day 03/22 states hes up to 215# as he went a week without his lasix. wt q d Constipation?: No : WNL Except Comment: 02/12 states Medina put him on flomax but he stopped because it can have a lot of side effects. Enc him to discuss with MD before dc a med 02/28 I reinforced the need for continued lasix, and potassium regimen. He asked when he could stop the lasix, and why he was on potassium. 03/07 Continues to take lasix and potassium as prescribed. 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 Enc him to walk halls at [facility] as its hot outside. 02/17 Getting exercise by walking in the halls at the [facility]. 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 03/07 He is active and tollerates it well. Mobility/Falls: WNL Mobility Comment: 03/22 steady. was walking pastor daily; reports he walks twice a day now Feeling of Well Being: WN Feeling of Well Being Comment: 02/12 good to be home with who has dementia; he is primary caregiver. States he made deal with God that he could take care of her until she . Understands importance of taking care of self so he can take care of her 03/15 states he feels really good 03/22 worked with SREEKANTH and trying to get medicaid for to help with her care as she is totally dependent due to her dementia Pain/Management: WNL Pain/Management Comment: 03/15 states back pain is better since he's lost wt. Scheduled Follow-Up with Provi: Yes (02/[address] Ospina (cardiology) 03/09, and Dr Adams the next week.) Community Resources/C: 02/12 sees Nacho on 02/16 at 10:30. Enc him to take his meds as his doses are different than on his list provided at hospital. Dr Cheung 03/09; gave him dc note to give to . Has to schedule visit with Khanh to review his labs. SREEKANTH coming to home to help get more care or covered care as they are paying privately for Shannon to come help daily. 03/15 sees Nacho on 03/17. 03/22 has ordered f/u in 4 mos Questions for Future PCP Visit: 03/15 MD notes say he takes lisinopril 20mg qd but he states he only takes 10mg. MD note states glipizide is 10mg a day and he states he was told to take 5 mg qday He was told to keep taking his lasix 20 and potassium 20 daily but they were not available at pharmacy and his 30 day supply is done today. Needed or Pending Tests: Yes (Sleep study 04/06) Following Discharge Instructio: Yes TCM Discharge Criteria Medication Knowledge: 02/12 does not know how to pronounce medication names but when he opens the bottle he can tell me what the med is for and that he used to b e on a different dose that the MD changed Has new lasix that he calls his water pill. Used to take potassium and knows he can break the pill in half; denies stomach upset when he took it an hour before breakfast. He told me Dr Quarles took him off a blood thinner and told him to take baby ASA bid (our order has qd). Enc him to verify with MD at next visit and change his list that he carries in his wallet. States his glipizide was changed to 5 mg in October when his last A1C was only 5.1. His lisinopril bottle is 10mg and he states the MD changed that also. He removed the metoprolol from the shoe lay out planner during my visit. 03/15 Is out of lasix and potassium RX from [facility]. Was told to take them but they are not available at his pharmacy. Enc him to ask at his MD appt in 2 days 03/[address] Cheung ordered his lasix and he has that but did not order Kcl. Dr Griffith note reflects she ordered lasix and Kcl. Instruct him to call pharm first to see if they have Kcl and if not to call Dr Griffith office Disease Management/Concern/Wha: 02/12 Able to tell me s/s to call MD or go to hospital. Plan to reduce sodium and fluids to 2L a day. States he drinks lots of tea and this will be difficult but he will try. Suggested he use smaller glasses. 03/15 review s/s and he states "I'm gonna watch it". Red/Yellow Flags: CHF 02/17 Red/yellow flags of CHF and the imortance of qd wts and documenting. BS qd and documenting to take to or call DR if out of range Transitional Care Comment: 02/11 new dx CHF. review self care, new meds, dz process, diet, daily wt and he verbalize understand. repeat back used. 02/12 Not adding salt but eats lots of prepared, canned or frozen meals. Discuss substitutions and ways to reduce NA intake and to limit fluids 02/17 working hard to change to low sodium diet along with his diabetic diet. 02/25 Unable to contact. 02/28 Reviewed CHF red/yellow flags. His weight is down to 209, BS stable. He is not wearing O2 during the day, does not check O2 sats, but feels good. I encouraged him to keep wearing O2 until he sees his Dr and need is evaluated. 03/07 Reviewed the importance of daily weights to be done first thing in the morning. Sats 93% on RA. 03/15 Ran out of meds today but, sees MD in 2 day. Has decreased NA and fluids, wt qday, walks dailyand aware of s/s to report. Feels better and happy labs look better. 03/22 Keeps med list with him but took all meds to MD visits as instructed. Changed diet, restricting fluids, more active, wearing O2 and daily wt to monitor for changes and keep well. Agrees to f/u with NAYELY MATA Mar 22, 2018 10:31
--- NOTE | 2018-04-08 15:54 | Transitional Care Management ---
Assessment Visit Type: Telephone Visit Spoke with: Yandel Cardiac: WNL Except Cardiac Comment: 02/12 feels tired this am after just a shower. Did not take metoprolol as it has been dc and he removed it from his pill equipment planner while I was observing 02/17 Still feel weak but saw yesterday and she stated his heart was doing OK, Has a sleep study arranged for Apr 0603/07 Appt with [employer] on 03/07 review BNP went from over 1000 in hospital to 48 on 03/09. Denies s/s CHF 03/22 , Denies edema or bloating, knows to report this sign of CHF to MD early Respiratory: WNL Except Respiratory Comment: 02/12 states he used O2 at 5 L , instead of 2 L, last pm as instructed. states he slept through night without awakening as usual. Enc that he will cont to sleep better without tiredness thru day when sleep study complete and he can wear CPAP. 02/17 Still needs O2 at 5L with activity but then turns back down to 3L ans 5 L HS. Sleep study 04/06 02/28 Only wearing oxygen 5L at night. He does not check his pulse ox, but feels good on room air during the day. 03/07 Sats 93% on RA, wears 5L at NOC. Denies SOB. 03/15 no SOB or cough. States only naps for brief periods during day and up in chair; does not wear O2 during day. Sleeps good at hs with his 5 L 03/22 states the O2 "really helped" his ability to sleep at hs. No sob or copd sx 04/08 had sleep study done but, couldn't breathe with the mask on. Pending final results review with Nacho GI: Nutrition: WNL Except GI Comment: 02/12 states he will not add salt to foods. Common breakfast is instant grits but, it has salt and he will cook grits from scratch to avoid the salt. Likes bautista and has already cut back from 4 slices to 2 but is willing to try low salt bautista. LIkes canned soups and chili but is willing to try healty choice brands. Shannon does his shopping and will buy low salt foods; she read labels with me and identified high salt contents in his foods. BS was 114 this am and avg is 118 for the week; he has a talking meter and takes it to MD appt to review with PCP. 02/17 BS 112 this am. He does his BS once day in AM 02/28 BS 104 today. reviewed low sodium and fluid restriction. 03/15 reports he eats only 2 slices (was 4) of bautista that are smaller in size and "loves grits". Raj made homemade chili without salt that he likes. Less salt and less than 2 L fluids a day 03/22 No more ice tea; drank a gallon a day with sugar in it. Drinking lemonade. Glucometer to MD with weekly avg of 111. Reading labels and avoiding salt "Its in everything" 04/08 not using salt shaker even on his watermelon, avoiding na in additives, limiting fluids to 2 L Wt Gain/Loss: WNL Weight Comment: 02/12 discuss getting a scale yesterday and raj January states she will get him one. Stressed importance of wt qam 02/17 daughter brought hims a scale and he has been weighting qd was sown ti 215# today. He also ecords his BS qd to take to 02/28 Weighing daily, 209 lbs today. Reviewed red and yellow flags. 03/07 He has been weighing with his clothes, in the mid-morning, 214lbs today. Educated him on weighing first thing in the morning, after voiding, with similar clothing. 03/15 wt remains 212. Wants to loose and enc to walk twice a day when wifes caregiver is there. He ususlly walks the pastor once a day 03/22 states hes up to 215# as he went a week without his lasix. wt q d 04/08 wt stable to #217. wt bid Constipation?: No : WNL Except Comment: 02/12 states Med[facility] put him on flomax but he stopped because it can have a lot of side effects. Enc him to discuss with MD before dc a med 02/28 I reinforced the need for continued lasix, and potassium regimen. He asked when he could stop the lasix, and why he was on potassium. 03/07 Continues to take lasix and potassium as prescribed. 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 Enc him to walk halls at [facility] as its hot outside. 02/17 Getting exercise by walking in the halls at the [facility]. 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 03/07 He is active and tollerates it well. 04/08 walk bid in hallway when dry cleaner hand is with his Mobility/Falls: WNL Mobility Comment: 03/22 steady. was walking pastor daily; reports he walks twice a day now Feeling of Well Being: WNL Feeling of Well Being Comment: 02/12 good to be home with who has dementia; he is primary caregiver. States he made deal with God that he could take care of her until she . Understands importance of taking care of self so he can take care of her 03/15 states he feels really good 03/22 worked with SREEKANTH and trying to get medicaid for to help with her care as she is totally dependent due to her dementia Socialization Comment: 04/08 with 01/03 Pain/Management: WNL Pain/Management Comment: 03/15 states back pain is better since he's lost wt. Scheduled Follow-Up with Provi: Yes (02/[address] Ospina (cardiology) 03/09, and Dr Adams the next week.) Community Resources/HHC: 02/12 sees Nacho on 02/16 at 10:30. Enc him to take his meds as his doses are different than on his list provided at hospital. Dr Cheung 03/09; gave him dc note to give to . Has to schedule visit with Khanh to review his labs. SREEKANTH coming to home to help get more care or covered care as they are paying privately for Shannon to come help daily. 03/15 sees Nacho on 03/17. 03/22 has ordered f/u in 4 mos Questions for Future PCP Visit: 03/15 notes say he takes lisinopril 20mg qd but he states he only takes 10mg. MD note states glipizide is 10mg a day and he states he was told to take 5 mg qday He was told to keep taking his lasix 20 and potassium 20 daily but they were not available at pharmacy and his 30 day supply is done today. Needed or Pending Tests: Yes (Sleep study 04/06) Following Discharge Instructio: Yes TCM Discharge Criteria Medication Knowledge: 02/12 does not know how to pronounce medication names but when he opens the bottle he can tell me what the med is for and that he used to b e on a different dose that the MD changed Has new lasix that he calls his water pill. Used to take potassium and knows he can break the pill in half; denies stomach upset when he took it an hour before breakfast. He told me Dr Quarles took him off a blood thinner and told him to take baby ASA bid (our order has qd). Enc him to verify with MD at next visit and change his list that he carries in his wallet. States his glipizide was changed to 5 mg in October when his last A1C was only 5.1. His lisinopril bottle is 10mg and he states the MD changed that also. He removed the metoprolol from the equipment planner during my visit. 03/15 Is [facility] of lasix and [facility]. Was told to take them but they are not available at his pharmacy. Enc him to ask at his MD appt in 2 days 03/[address] Cheung ordered his lasix and he has that but did not order Kcl. Dr Griffith note reflects she ordered lasix and Kcl. Instruct him to call pharm first to see if they have Kcl and if not to call Dr Griffith office 04/08 reminded to call for rx before running out Disease Management/Concern/Wha: 02/12 Able to tell me s/s to call MD or go to hospital. Plan to reduce sodium and fluids to 2L a day. States he drinks lots of tea and this will be difficult but he will try. Suggested he use smaller glasses. 03/15 review s/s and he states "I'm gonna watch it". 04/08 review s/s again with pt Red/Yellow Flags: CHF 02/17 Red/yellow flags of CHF and the imortance of qd wts and documenting. BS qd and documenting to take to or call if out of range Transitional Care Comment: 02/11 new dx CHF. review self care, new meds, dz process, diet, daily wt and he verbalize understand. repeat back used. 02/12 Not adding salt but eats lots of prepared, canned or frozen meals. Discuss substitutions and ways to reduce NA intake and to limit fluids 02/17 working hard to change to low sodium diet along with his diabetic diet. 02/25 Unable to contact. 02/28 Reviewed CHF red/yellow flags. His weight is down to 209, BS stable. He is not wearing O2 during the day, does not check O2 sats, but feels good. I encouraged him to keep wearing O2 until he sees his Dr and need is evaluated. 03/07 Reviewed the importance of daily weights to be done first thing in the morning. Sats 93% on RA. 03/15 Ran out of meds today but, sees MD in 2 day. Has decreased NA and fluids, wt qday, walks dailyand aware of s/s to report. Feels better and happy labs look better. 03/22 Keeps med list with him but took all meds to MD visits as instructed. Changed diet, restricting fluids, more active, wearing O2 and daily wt to monitor for changes and keep well. Agrees to f/u with TCN 04/08 agree to dc. has info and tools to stay well and avoid hospital readmission NAYELY FRIED Apr 08, 2018 15:54
== END 2018-04-08 16:02 | disposition home or self-care (01) ==
LOC: TCM 14:32
PROVIDERS: ATTEND Nurse Practitioner
DX: Z02.9 Encounter for administrative examinations, unspecified (principal)

== ENCOUNTER 2018-02-18 10:30 | Outpatient (RCR) | payer MEDICARE, BC ==
[2018-01-31 11:00] VITALS: BP 165/77
[2018-01-31 11:15] LABS: PLATELET COUNT, AUTOMATED 200 K/uL (150-450)
[2018-02-10 13:11] VITALS: Wt 97.9 kg
[2018-02-18 10:39] VITALS: BP 140/77
--- NOTE | 2018-02-18 16:33 | EL-[facility] ONCOLOGY NOTE ---
EVENT DATE: February 18, 2018 DIAGNOSES 1. Idiopathic thrombocytopenia purpura. 2. History of splenectomy for idiopathic thrombocytopenia purpura. 3. History of polycythemia in the past. 4. History of monoclonal gammopathy, unknown significance. 5. 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 6. Diabetes mellitus. 7. Coronary artery disease. 8. Hyperlipidemia. 9. Hypertension. CHIEF COMPLAINT The patient is here today for follow up of his MGUS. HEMATOLOGY HISTORY The patient is an 82-year-old male who had history of squamous cell carcinoma of the skin on multiple occasions. He recently had two lesions from the left side of the face resected by Dr. Varma, and the pathology is still pending. The patient gave a history of idiopathic thrombocytopenic purpura treated with splenectomy a long time ago. Also, as per patient, he was diagnosed with Waldenstrom macroglobulinemia and was put on followup; but, he did not receive any treatment for that in the past according to him. The patient moved from [place], [place] to [place], [place] in December of 2014, and he would like to establish his care with a certified public accountant. The patient is here today for followup of his ITP and MGUS. He is doing fine currently, apart from having arthritis with pain in the left shoulder and hips bilaterally. The patient is doing fine. He is also short winded. HISTORY OF PRESENT ILLNESS Patient is here today for followup his MGUS. He is complaining of a dry cough sometimes. He has some pericardial effusion, followed by the senior web applications developer for that. He has tingling and numbness in the feet from chronic polyneuropathy. Other than that, he is stable. PAST MEDICAL HISTORY 1. Waldenstrom macroglobulinemia. 2. ITP. 3. Squamous cell carcinoma of the skin. 4. Diabetes mellitus, type 2. 5. Coronary artery disease status post myocardial infarction in 2006, has three stents. 6. Hyperlipidemia. 7. Hypertension. PAST SURGICAL HISTORY 1. He had three stents put in the coronaries. 2. Splenectomy for ITP. 3. Hernia repair. 4. Cholecystectomy. 5. Tonsillectomy as a child. FAMILY HISTORY Mother had breast cancer. SOCIAL HISTORY The patient is with one daughter. 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 He never smoked and never drank. He denies any abuse of illicit drugs. CURRENT MEDICATIONS 1. Aspirin 81 mg daily. 2. Plavix 75 mg daily. 3. Potassium chloride one daily. 4. Lisinopril 5 mg daily. 5. Mag ox 40 mg orally. 6. Metformin 100 mg twice daily. 7. Sertraline 50 mg once daily. 8. Simvastatin 40 mg nightly. 9. Flomax 0.4 mg daily. 10. Zetia 10 mg daily. ALLERGIES ALEVE, CODEINE, PENICILLIN, SULFA DRUGS. REVIEW OF SYSTEMS CONSTITUTIONAL: No appetite or weight change. No fever, chills or sweating. No recent infection. HEENT: Ears: No tinnitus or hearing problem. Nose: No nasal discharge or epistaxis. Throat: No sore throat or mouth ulcers. Eyes: No diplopia or visual changes. RESPIRATORY: Patient has some cough. CARDIOVASCULAR: No chest pain, orthopnea, or paroxysmal nocturnal dyspnea (PND) . No edema. No palpitations. GASTROINTESTINAL: No nausea or vomiting. No diarrhea or constipation. No change in bowel movements. No heartburn or swallowing difficulties. No abdominal pain. No jaundice. No hematemesis, melena or rectal bleeding. GENITOURINARY: No hematuria or dysuria. MUSCULOSKELETAL: He has pain in the left shoulder and hips bilaterally. NEUROLOGICAL: He has tingling and numbness in the feet from chronic polyneuropathy. HEMATOLOGIC/LYMPHATIC: No bleeding or easy bruising. No weakness or fatigue. No enlarged lymph nodes. SKIN: No skin rash or lumps. PSYCHIATRIC: No anxiety or depression. PHYSICAL EXAMINATION GENERAL: Looks stable. Well developed, well nourished, and in no acute distress. VITAL SIGNS: Blood pressure 140/72, pulse 79 per minute, respirations 16 per minute, pulse ox 92% on room air. HEENT: Head: Atraumatic. No sinus tenderness to palpation. Eyes: No icterus or conjunctivitis. Mouth and throat: No oral thrush or mucositis. NECK: Supple. No cervical or supraclavicular lymphadenopathy. LUNGS: Clear to auscultation and percussion bilaterally. HEART: Regular rate and rhythm. No gallops, murmurs, clicks or rubs. ABDOMEN: Soft and lax. No tenderness. No hepatosplenomegaly. No masses. EXTREMITIES: No cyanosis, clubbing or edema. LYMPHATICS: No peripheral lymphadenopathy. NEUROLOGICAL: Conscious, alert and oriented times three. No focal motor or sensory deficits. PSYCHIATRIC: Mood and affect appear normal. SKIN: No skin rash, bruise or purpuric eruption. DIAGNOSTIC DATA CBC shows white count 10.8, hemoglobin 15.1, hematocrit 44.3, platelets 200, 000. Absolute lymphocytic count is stable at 5.1. Flow cytometry of the peripheral blood was negative for lymphoproliferative disorder. Myeloma profile showed beta-2 microglobulin of 4.5. Lennon free light chain of 6.71, while lambda free light chain is 2.57, and kappa to lambda free light chain ratio is 2.61 which is mildly elevated. IgG level was normal at 917. IgA level was normal at 272. IgM level is normal at 259. Immunoelectrophoresis shows slight restriction at IgM lambda which could be an artifact, specific immune response, or LD monoclonal paraffin. ASSESSMENT 1. Monoclonal gammopathy of unknown significance, discovered during evaluation of peripheral neuropathy. Immunoelectrophoresis did reveal a faint band in the IgM lambda which is stable. I am planning to continue to monitor. I will see him again in six months with CBC, chemistry panel, LDH, uric acid, and myeloma profile. 2. Idiopathic thrombocytopenic purpura, status post splenectomy. Current platelet count is normal at 200,000. There is no contraindication for anticoagulation therapy if indicated by his senior web applications developer. 3. Lymphocytosis. Absolute lymphocytic count currently is 5.1. Flow cytometry of the peripheral blood is negative for lymphoproliferative disorder. 4. History of recurrent bladder cancer. Patient is followed by Dr. Medina. 5. Diabetes mellitus, on metformin. 6. Coronary artery disease, status post myocardial infarction 2005 with three stents placed. 7. Hypertension. 8. 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 PLAN 1. Continue followup. 2. Patient will return in six months with CBC, chem panel, LDH, uric acid, and myeloma profile. 3. Patient is to contact us for any new concern or complaints. [facility]
== END 2018-02-23 14:07 | disposition home or self-care (01) ==
LOC: ONC 10:30
PROVIDERS: ATTEND Internal Medicine Hematology
DX: D69.3 Immune thrombocytopenic purpura (principal); E11.9 Type 2 diabetes mellitus without complications; I25.10 Atherosclerotic heart disease of native coronary artery without angina pectoris; I10 Essential (primary) hypertension; E78.5 Hyperlipidemia, unspecified; Z95.5 Presence of coronary angioplasty implant and graft; Z79.82 Long term (current) use of aspirin; Z79.84 Long term (current) use of oral hypoglycemic drugs
CPT/HCPCS: 36415; 82232; 83615; 83883; 84550; 85025; 86334; 88184; 88185; 88189; G0463; 82040; 82247; 82310; 82374; 82435; 82465; 82565; 82947; 83036; 83718; 84075; 84132; 84155; 84295; 84450; 84460; 84478; 84520; 99212

== ENCOUNTER → 2018-03-09 | Outpatient (CLI) | payer MEDICARE, BC ==
[2018-02-10 13:11] VITALS: BMI 32.6
== END ==
LOC: LAB 10:43
PROVIDERS: ATTEND Internal Medicine Cardiovascular Disease
DX: I27.20 Pulmonary hypertension, unspecified (principal); N18.9 Chronic kidney disease, unspecified; R06.02 Shortness of breath; E78.00 Pure hypercholesterolemia, unspecified; I25.10 Atherosclerotic heart disease of native coronary artery without angina pectoris
CPT/HCPCS: 36415; 82310; 82374; 82435; 82565; 82947; 83880; 84132; 84295; 84520

== ENCOUNTER → 2018-04-06 | Outpatient (CLI) | payer MEDICARE, BC ==
[2018-02-10 13:11] VITALS: BMI 32.6
[~2018-04-06] MED LIST changes: -METF-421 PO; +METF-452 PO
== END ==
LOC: RESP 19:27
PROVIDERS: ATTEND Internal Medicine
DX: G47.33 Obstructive sleep apnea (adult) (pediatric) (principal); G47.36 Sleep related hypoventilation in conditions classified elsewhere

== ENCOUNTER → 2018-06-22 | Outpatient (CLI) | payer MEDICARE, BC ==
[2018-02-10 13:11] VITALS: BMI 32.6
[~2018-06-22] MED LIST changes: -HYDR-4309 PO; +HYDR-653 PO
== END ==
LOC: LAB 09:42
PROVIDERS: ATTEND Urology
DX: C61 Malignant neoplasm of prostate (principal); N40.1 Benign prostatic hyperplasia with lower urinary tract symptoms
CPT/HCPCS: 36415; 84153

== ENCOUNTER → 2018-06-23 | Outpatient (CLI) | payer MEDICARE, BC ==
[2018-02-10 13:11] VITALS: BMI 32.6
== END ==
LOC: LAB 11:50
PROVIDERS: ATTEND Internal Medicine
DX: E11.3293 Type 2 diabetes mellitus with mild nonproliferative diabetic retinopathy without macular edema, bilateral (principal); I10 Essential (primary) hypertension; E78.2 Mixed hyperlipidemia
CPT/HCPCS: 36415; 82040; 82247; 82310; 82374; 82435; 82465; 82565; 82947; 83036; 83718; 84075; 84132; 84155; 84295; 84450; 84460; 84478; 84520

== ENCOUNTER → 2018-06-29 | Outpatient (CLI) | payer MEDICARE, BC ==
[2018-02-10 13:11] VITALS: BMI 32.6
--- NOTE | 2018-06-29 15:55 | RADIOLOGY IMAGING REPORT ---
FACILITY: [facility] PATIENT NAME: Norberto Pritchett : 1935 MR: [id number] V: [id number] EXAM DATE: ORDERING PHYSICIAN: DHEERAJ SIMEON TECHNOLOGIST: Location: [facility] Patient: Norberto Pritchett : 1935 Visit/Account:[id number] Date of Sevice: 06/29/2018 Chest 2 views: HISTORY: Preop removal of bladder tumors. History of heart attack. COMPARISON: 02/10/2018 FINDINGS: Frontal and lateral chest: Cardiomediastinal silhouette is within normal limits. There is no infiltrate or pleural effusion. Small pleural effusions noted previously have resolved. No pneum othorax. Pulmonary vasculature is normal. Mild degenerative changes are present in the thoracic spine. IMPRESSION: No evidence of acute cardiopulmonary abnormality. Report Dictated By: Bonnie Jimenez MD at 06/29/2018 3:47 PM Report E-Signed By: Bonnie Jimenez MD at 06/29/2018 3:51 PM WSN:[id number]
--- NOTE | 2018-06-30 08:24 | EKG ---
FACILITY: [facility] PATIENT NAME: BETH OGDEN : [id number] MR: [id number] V: [id number] EXAM DATE: ORDERING PHYSICIAN: DHEERAJ SIMEON TECHNOLOGIST: VISHNU Test Reason : PRE OP CLEARANCE Blood Pressure : / mmHG Vent. Rate : 066 BPM Atrial Rate : 066 BPM P-R Int : 184 ms QRS Dur : 098 ms QT Int : 416 ms P-R-T Axes : 068 081 089 degrees QTc Int : 436 ms Normal sinus rhythm Normal ECG When compared with ECG of 09-FEB-2018 10:54, RSR' pattern in V1 is no longer present Referred By: Confirmed By:
== END ==
LOC: RESP 14:03
PROVIDERS: ATTEND Internal Medicine
DX: Z01.818 Encounter for other preprocedural examination (principal)
CPT/HCPCS: 71046

== ENCOUNTER → 2018-07-18 | Outpatient (CLI) | payer MEDICARE, BC ==
[2018-02-10 13:11] VITALS: BMI 32.6
[2018-07-18 11:09] LABS: INR 0.94
== END ==
LOC: LAB 10:11
PROVIDERS: ATTEND Internal Medicine Cardiovascular Disease
DX: I42.8 Other cardiomyopathies (principal); I25.10 Atherosclerotic heart disease of native coronary artery without angina pectoris
CPT/HCPCS: 36415; 85610

== ENCOUNTER 2018-07-21 02:56 | Day surgery (SDC) | payer MEDICARE, BC ==
[2018-02-10 13:11] VITALS: Ht 177.8 cm; Wt 100.9 kg
[2018-07-18 11:02] LABS: PLATELET COUNT, AUTOMATED 312 K/uL (150-450)
--- NOTE | 2018-07-20 12:27 | HISTORY AND PHYSICAL ---
DATE OF ADMISSION: July 21, 2018 CHIEF COMPLAINT Bladder cancer. HISTORY OF PRESENT ILLNESS Mr. Pritchett is an 83-year-old white gentleman with a history of bladder cancer first diagnosed in October,, who in routine surveillance cystoscopy was noted to have a small recurrent papillary lesion on the posterior wall times 2 and one at the left bladder neck. He is now being brought to the operating room for planned transurethral resection and biopsy of these areas as well as a possible mitomycin C instillation chemotherapy post resection. PAST MEDICAL HISTORY * Hyperlipidemia. * Hypertension. * Coronary artery disease with SD in 2005. * Diabetes. * Squamous cell carcinoma of the skin. * Idiopathic thrombocytopenia purpura. 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 * Sleep apnea. * Kidney stones. 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 * History of A1 prostate cancer diagnosed at [facility] in 2013. PAST SURGICAL HISTORY * Splenectomy for ITP. * Hernia repair. * Cholecystectomy. * Tonsillectomy. * Transurethral resection of prostate 2013. * Coronary artery stenting 2007 and 2005. * Charlene Fundoplication. * Left extracorporeal shock lithotripsy 2015. * Transurethral resection of grade 1TA bladder cancer 2015. * Bladder biopsy 2017 in March and August,. ALLERGIES CODEINE PENICILLIN SULFA CURRENT MEDICATIONS * Aspirin * Plavix * Potassium * Lisinopril * Magnesium * Metformin * Simvastatin * Flomax * Zetia * Sertraline SOCIAL HISTORY The patient is and lives in [place], [place]. FAMILY HISTORY Noncontributory. REVIEW OF SYSTEMS The patient denies chest pain, shortness of breath, productive cough, fever, chills, gross hematuria, or change in voiding habits. PHYSICAL EXAMINATION GENERAL: The patient is a well developed, elderly white male in no acute distress. HEENT: Normocephalic, atraumatic. CHEST: Clear to auscultation bilaterally. CARDIOVASCULAR: Regular rate and rhythm. ABDOMEN: Soft, nontender, no masses were palpated. : Deferred to the operating room. EXTREMITIES: Without clubbing, cyanosis, or edema. NEURO: Nonfocal. IMPRESSION This is an 83-year-old white male with recurrent papillary lesions with a history of bladder cancer. PLAN We will perform anesthetic cystoscopy, resection or biopsy of the lesions with possible mitomycin C instillation post resection. [facility]
[~2018-07-21] VITALS: Ht 177.8 cm; Wt 100.9 kg
[2018-07-21] VITALS (7 sets, daily range): BP systolic 102–142; BP diastolic 43–99
[2018-07-21] MEDS ORDERED: MIDAZOLAM 2 MG/2 ML VIAL IVP PRN (06:45)
[2018-07-21] MEDS ORDERED: LEVOFLOXACIN/D5W*500 MG/100 ML 100 ML IVPB ONE (06:45)
[2018-07-21] MEDS ORDERED: FAMOTIDINE 20 MG TAB PO ONE (06:45)
[2018-07-21] MEDS ORDERED: LIDOCAINE/SOD BICARB 8.4% SYR ID ONE (06:45)
[2018-07-21] MEDS ORDERED: NORMOSOL R SOLN(*) 1000 ML BAG 1,000 ML IV PRN (06:45)
[2018-07-21] MEDS ORDERED: LIDOCAINE MPF 1% 5 ML VIAL ONE (07:03)
[2018-07-21] MEDS ORDERED: DEXAMETHASONE SOD 4 MG/ML VIAL ONE (07:03)
[2018-07-21] MEDS ORDERED: ONDANSETRON 4 MG/2 ML VIAL ONE (07:03)
[2018-07-21] MEDS ORDERED: PROPOFOL EMUL(*) 10MG/ML 20 ML 20 ML ONE (07:03)
[2018-07-21] MEDS ORDERED: fentaNYL CITR 100 MCG/2 ML AMP ONE (07:40)
[2018-07-21] MEDS ORDERED: BELLADONNA ALK/OPIUM 60MG SUPP PR ONE (08:31)
[2018-07-21] MEDS ORDERED: NS 0.9% IRRIGATION 1000ML PLCT IR ONE (08:53)
[2018-07-21] MEDS ORDERED: WATER STERILE FOR IRRIG 1000ML IR ONE (08:54)
[2018-07-21] MEDS ORDERED: HYDR-653 PO (09:01)
[2018-07-21] MEDS ORDERED: PHEN200T32 PO (09:02)
[2018-07-21] MEDS ORDERED: DOCU-416 PO (09:02)
[2018-07-21] MEDS ORDERED: mitoMYcin 20 MG VIAL 40 MG in WATER STERILE FOR INJ 50 ML VL 40 ML IR ONE (09:30)
--- NOTE | 2018-07-21 09:33 | OPERATIVE REPORT 1 ---
EVENT DATE: July 21, 2018 SURGEON: Abdullahi Medina MD ANESTHESIOLOGIST: Adolph Perez MD ANESTHESIA: General. CORPORATE TREASURER: [*] PREOPERATIVE DIAGNOSIS Recurrent papillary bladder lesions with history of bladder cancer on floor, posterior wall and dome. POSTOPERATIVE DIAGNOSIS Recurrent papillary bladder lesions with history of bladder cancer on floor, posterior wall and dome. PROCEDURE PERFORMED 1. Cystoscopy. 2. Transurethral resection of two 1 cm papillary bladder lesions on the posterior wall. 3. Fulguration of papillary bladder lesions on left dome and left floor. 4. Intravesical mitomycin C chemotherapy instillation intravesically. ESTIMATED BLOOD LOSS 5 cc. PATHOLOGY Posterior wall lesions for permanent analysis. COMPLICATIONS None. DRAINS 20-Ukrainian three-way Arredondo catheter with irrigation port plugged. COMPLICATIONS None. CONDITION The patient was taken to the recovery room awake and in stable condition. STATEMENT OF MEDICAL NECESSITY Patient is an 83-year-old white male who was originally noted to have a papillary bladder tumor in October 2015 which on pathology was noted to be a low- grade superficial lesion. He has had surveillance cystoscopies performed and is noted to have two prior small papillary lesions over the past two years with one in March 2017 and one in August 2017. Recent followup office cystoscopy revealed recurrent papillary lesions in the posterior wall, each approximately 1 cm in size, as well as having some mild papillary lesions at the left floor and left dome. All of these appear to be consistent with early papilloma type lesions on inspection. He is now being brought to the operating room for planned biopsy and fulguration of these lesions. DESCRIPTION OF PROCEDURE The patient was brought to the operating room. After general anesthetic was obtained, he was placed in the dorsal lithotomy position and prepped and draped in the usual sterile manner. Anesthetic cystoscopy was performed with the 21- Ukrainian rigid Colon sheath and both 30-degree and 70-degree lenses. His pendulous bulbar and membranous urethra were normal. Upon entering his prostate, he was status post TURP with a wide open channel and bladder neck. Upon entering his bladder, there was a small amount of diffuse papillary changes on the mucosa at the bladder neck, approximately the 5 o'clock position, as well as some small changes on the intertrigonal ridge on the left side as well. The two 1 cm papillary tumor-like lesions were on the posterior wall and there some mild changes on the left dome as well. There were no velvety or significant erythematous lesions throughout the bladder. His ureteral orifices were both effluxing clear urine. At this point, the scope was removed. The patient's urethra was then calibrated to 32-Ukrainian with male sounds and the 24-Ukrainian continuous flow sheath was placed and transurethral resection of the posterior wall bladder tumors were performed and the entire lesion removed with one swipe at each lesion. These were sent for permanent analysis. The biopsy area was fulgurated with electrocautery at its base and surrounding edge. The mild papillary changes at the left floor, bladder neck and dome were then fulgurated. The bladder was then inspected. There was no evidence of bladder injury or continued bleeding. The scope was removed. A 20-Ukrainian Arredondo catheter was placed using a three-way catheter with irrigation port plugged. A B and O suppository was given prior to the conclusion of the case. He was awakened in the operating room and taken to the recovery area, where 40 mg of mitomycin and 40 cc of saline were instilled in the bladder and the catheter plugged. We will keep the mitomycin in the bladder for one hour and then we will drain his bladder and remove his catheter. He will be deemed ready for discharge. PLAN We will allow the patient to be discharged home on [place], Colace and Pyridium. We will plan to see him in the Urology Clinic in two to three weeks. We will review his pathology and discuss possible mitomycin versus BCG versus surveillance followup. KATIA
== END 2018-07-21 10:45 | disposition home or self-care (01) ==
LOC: OR 02:56
PROVIDERS: ATTEND Urology
DX: Z85.51 Personal history of malignant neoplasm of bladder (principal); E78.5 Hyperlipidemia, unspecified; I10 Essential (primary) hypertension; I25.10 Atherosclerotic heart disease of native coronary artery without angina pectoris; I25.2 Old myocardial infarction; G47.30 Sleep apnea, unspecified; Z79.84 Long term (current) use of oral hypoglycemic drugs; Z85.46 Personal history of malignant neoplasm of prostate
CPT/HCPCS: 36415; 36416; 52234; 81001; 82948; 84153; 85025; 85610; 87088; 88305; A4346; A9270; J1100; J1956; J2001; J2405; J2704; J3010; J9280; 82040; 82247; 82310; 82374; 82435; 82565; 82947; 84075; 84132; 84155; 84295; 84450; 84460; 84520

== ENCOUNTER → 2018-08-10 | Outpatient (CLI) | payer MEDICARE, BC ==
[2018-02-10 13:11] VITALS: BMI 32.6
--- NOTE | 2018-08-10 12:26 | RADIOLOGY IMAGING REPORT ---
FACILITY: [facility] [place] PATIENT NAME: Norberto Pritchett : 1935 MR: [id number] V: [id number] EXAM DATE: ORDERING PHYSICIAN: JOSEPH OCASIO TECHNOLOGIST: Location: [facility] Patient: Norberto Pritchett : 1935 Visit/Account:[id number] Date of Sevice: 08/10/2018 VENOUS DOPP LOW RIGHT EXTREMIT HISTORY: Rule out blood clot. Right leg pain for a couple weeks. COMPARISON: None. FINDINGS: Grayscale, duplex and color Doppler interrogation of the right lower extremity deep veins from common femoral vein to proximal calf was completed. The greater saphenous vein in the proximal thigh was ev aluated using similar technique. Common femoral vein - Negative. Femoral vein - Negative. Deep femoral vein - Negative. Popliteal vein - Negative. Visualized deep calf veins - Negative. Popliteal fossa: Negative. Greater saphenous vein in the proximal thigh: Negative. IMPRESSION: No evidence for DVT. Report Dictated By: Jigar Gauthier MD at 08/10/2018 12:21 PM Report E-Signed By: Jigar Gauthier MD at 08/10/2018 12:21 PM WSN:[email or web address] CARLOS
== END ==
LOC: US 11:31
PROVIDERS: ATTEND Urology
DX: I74.10 Embolism and thrombosis of unspecified parts of aorta (principal); M79.661 Pain in right lower leg

== ENCOUNTER → 2018-08-12 | Outpatient (CLI) | payer MEDICARE, BC ==
[2018-02-10 13:11] VITALS: BMI 32.6
[2018-08-12 12:30] LABS: INR 1.1
== END ==
LOC: SPU 10:11
PROVIDERS: ATTEND Internal Medicine Cardiovascular Disease
DX: I48.0 Paroxysmal atrial fibrillation (principal); I25.10 Atherosclerotic heart disease of native coronary artery without angina pectoris
CPT/HCPCS: 85610

== ENCOUNTER → 2018-08-19 | Outpatient (CLI) | payer MEDICARE, BC ==
[2018-02-10 13:11] VITALS: BMI 32.6
[2018-08-19 11:20] LABS: INR 1.18
== END ==
LOC: LAB 10:58
PROVIDERS: ATTEND Internal Medicine Cardiovascular Disease
DX: I48.0 Paroxysmal atrial fibrillation (principal); I25.10 Atherosclerotic heart disease of native coronary artery without angina pectoris
CPT/HCPCS: 36415; 85610

== ENCOUNTER → 2018-08-24 | Outpatient (CLI) | payer MEDICARE, BC ==
[2018-02-10 13:11] VITALS: BMI 32.6
[~2018-08-24] MED LIST changes: +WARF2.5T11 PO
[2018-08-24 11:18] LABS: PLATELET COUNT, AUTOMATED 339 K/uL (150-450)
== END ==
LOC: LAB 10:55
PROVIDERS: ATTEND Internal Medicine
DX: E11.319 Type 2 diabetes mellitus with unspecified diabetic retinopathy without macular edema (principal); I50.30 Unspecified diastolic (congestive) heart failure; G61.81 Chronic inflammatory demyelinating polyneuritis
CPT/HCPCS: 36415; 82040; 82247; 82310; 82374; 82435; 82565; 82947; 83880; 84075; 84132; 84155; 84295; 84450; 84460; 84520; 85025; 85651; 86140

== ENCOUNTER → 2018-08-26 | Outpatient (CLI) | payer MEDICARE, BC ==
[2018-02-10 13:11] VITALS: BMI 32.6
[2018-08-26 10:38] LABS: INR 1.6
== END ==
LOC: LAB 10:11
PROVIDERS: ATTEND Internal Medicine Cardiovascular Disease
DX: I48.0 Paroxysmal atrial fibrillation (principal); I25.10 Atherosclerotic heart disease of native coronary artery without angina pectoris
CPT/HCPCS: 36415; 85610

== ENCOUNTER 2018-09-01 11:12 | Outpatient (RCR) | payer MEDICARE, BC ==
[2018-02-10 13:11] VITALS: Wt 103.0 kg
[2018-08-12 11:56] VITALS: BP 125/77
[2018-08-12 12:24] LABS: PLATELET COUNT, AUTOMATED 331 K/uL (150-450)
[2018-09-01 11:19] VITALS: BP 135/74
--- NOTE | 2018-09-01 13:54 | EL-TARABILY ONCOLOGY NOTE ---
EVENT DATE: September 01, 2018 DIAGNOSES 1. Idiopathic thrombocytopenia purpura. 2. History of splenectomy for idiopathic thrombocytopenia purpura. 3. History of polycythemia in the past. 4. History of monoclonal gammopathy, unknown significance. 5. 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 6. Diabetes mellitus. 7. Coronary artery disease. 8. Hyperlipidemia. 9. Hypertension. CHIEF COMPLAINT The patient is here today for followup of his MGUS. HEMATOLOGY HISTORY The patient is an 83-year-old male who had history of squamous cell carcinoma of the skin on multiple occasions. He recently had two lesions from the left side of the face resected by Dr. Vrama, and the pathology is still pending. The patient gave a history of idiopathic thrombocytopenic purpura treated with splenectomy a long time ago. Also, as per patient, he was diagnosed with Waldenstrom macroglobulinemia and was put on followup; but, he did not receive any treatment for that in the past according to him. The patient moved from [place], [place] to [place], [place] in December of 2014, and he would like to establish his care with a server assistant. The patient is here today for followup of his ITP and MGUS. He is doing fine currently, apart from having arthritis with pain in the left shoulder and hips bilaterally. The patient is doing fine. He is also short winded. HISTORY OF PRESENT ILLNESS Patient is here today for followup his MGUS. He is doing fine currently except for exertional shortness of breath. He has also some flare up of his neuropathy with tingling and numbness in his legs and patient is going to see his neurologist soon. PAST MEDICAL HISTORY 1. Waldenstrom macroglobulinemia. 2. ITP. 3. Squamous cell carcinoma of the skin. 4. Diabetes mellitus, type 2. 5. Coronary artery disease status post myocardial infarction in 2006, has three stents. 6. Hyperlipidemia. 7. Hypertension. PAST SURGICAL HISTORY 1. He had three stents put in the coronaries. 2. Splenectomy for ITP. 3. Hernia repair. 4. Cholecystectomy. 5. Tonsillectomy as a child. FAMILY HISTORY Mother had breast cancer. SOCIAL HISTORY The patient is with one daughter. 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 He never smoked and never drank. He denies any abuse of illicit drugs. CURRENT MEDICATIONS 1. Aspirin 81 mg daily. 2. Plavix 75 mg daily. 3. Potassium chloride one daily. 4. Lisinopril 5 mg daily. 5. Mag ox 40 mg orally. 6. Metformin 100 mg twice daily. 7. Sertraline 50 mg once daily. 8. Simvastatin 40 mg nightly. 9. Flomax 0.4 mg daily. 10. Zetia 10 mg daily. ALLERGIES ALEVE, CODEINE, PENICILLIN, SULFA DRUGS. REVIEW OF SYSTEMS CONSTITUTIONAL: No appetite or weight change. No fever, chills or sweating. No recent infection. HEENT: Ears: No tinnitus or hearing problem. Nose: No nasal discharge or epistaxis. Throat: No sore throat or mouth ulcers. Eyes: No diplopia or visual changes. RESPIRATORY: He has exertional shortness of breath. CARDIOVASCULAR: No chest pain, orthopnea, or paroxysmal nocturnal dyspnea (PND). No edema. No palpitations. GASTROINTESTINAL: No nausea or vomiting. No diarrhea or constipation. No change in bowel movements. No heartburn or swallowing difficulties. No abdominal pain. No jaundice. No hematemesis, melena or rectal bleeding. GENITOURINARY: No hematuria or dysuria. MUSCULOSKELETAL: He has pain in the left shoulder and hips bilaterally. NEUROLOGICAL: He has neuropathy flare up in his legs lately. HEMATOLOGIC/LYMPHATIC: No bleeding or easy bruising. No weakness or fatigue. No enlarged lymph nodes. SKIN: No skin rash or lumps. PSYCHIATRIC: No anxiety or depression. PHYSICAL EXAMINATION GENERAL: Looks stable. Well developed, well nourished, and in no acute distress. VITAL SIGNS: Blood pressure 135/74, pulse 88 per minute, respirations 16 per minute, temperature 96.9, pulse ox 91% on room air. HEENT: Head: Atraumatic. No sinus tenderness to palpation. Eyes: No icterus or conjunctivitis. Mouth and throat: No oral thrush or mucositis. NECK: Supple. No cervical or supraclavicular lymphadenopathy. LUNGS: Clear to auscultation and percussion bilaterally. HEART: Regular rate and rhythm. No gallops, murmurs, clicks or rubs. ABDOMEN: Soft and lax. No tenderness. No hepatosplenomegaly. No masses. EXTREMITIES: No cyanosis, clubbing or edema. LYMPHATICS: No peripheral lymphadenopathy. NEUROLOGICAL: Conscious, alert and oriented times three. No focal motor or sensory deficits. PSYCHIATRIC: Mood and affect appear normal. SKIN: No skin rash, bruise or purpuric eruption. DIAGNOSTIC DATA CBC showed white count 12.7, hemoglobin 15, hematocrit 45.4, platelets 339,000. Chem panel totally normal except chloride 109, BUN 30 and creatinine 2.1. Beta- 2 microglobulin is high at 5 but this may be due to his chronic kidney disease. Rosser free light chain is high at 9.05. Lambda free light chain is high at 2.98. Rosser free light chain ratio was high at 3.04. IgG is normal at 989. IgA is normal at 317. IgM is mildly elevated at 302. Serum protein immune electrophoresis showed a faint band in IgM lambda, suggestive of a specific immune response or an early monoclonal protein. ASSESSMENT 1. Monoclonal gammopathy of unknown significance discovered during evaluation of peripheral neuropathy. Immunoelectrophoresis did reveal a faint band in IgM lambda, which is stable currently. I am planning to continue followup. I will see him again in six months with CBC, chem panel, LDH, uric acid and myeloma profile. 2. Idiopathic thrombocytopenic purpura, status post splenectomy. Current platelet count is really very good at 339,000. I will continue to monitor each visit. 3. Absolute lymphocytosis. Absolute lymphocytic count is 5,000 this time. I will continue to monitor. His absolute lymphocytic count is stable. Flow cytometry of the peripheral blood in the past did not reveal any lymphoproliferative disorder. 4. History of recurrent bladder cancer. Patient is followed by Dr. Medina. 5. 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 PLAN 1. Continue followup. 2. Patient will return in six months with CBC, chem panel, LDH, uric acid and myeloma profile. 3. Patient is to contact us for any new concern or complaints. [facility]
[2018-10-03] MEDS ORDERED: LISI-362 PO (11:39)
== END 2018-09-27 08:51 | disposition home or self-care (01) ==
LOC: ONC 11:12
PROVIDERS: ATTEND Internal Medicine Hematology
DX: D69.3 Immune thrombocytopenic purpura (principal); D72.820 Lymphocytosis (symptomatic); D47.2 Monoclonal gammopathy; E11.9 Type 2 diabetes mellitus without complications; I25.10 Atherosclerotic heart disease of native coronary artery without angina pectoris; I10 Essential (primary) hypertension; E78.5 Hyperlipidemia, unspecified; R06.02 Shortness of breath
CPT/HCPCS: 36415; 82232; 83615; 83883; 84550; 85025; 85610; 86334; G0463; 82040; 82247; 82310; 82374; 82435; 82565; 82947; 84075; 84132; 84155; 84295; 84450; 84460; 84520; 99212

== ENCOUNTER → 2018-09-01 | Outpatient (CLI) | payer MEDICARE, BC ==
[2018-02-10 13:11] VITALS: BMI 32.6
[2018-09-01 11:18] LABS: INR 2.28
== END ==
LOC: LAB 10:56
PROVIDERS: ATTEND Internal Medicine Cardiovascular Disease
DX: I48.0 Paroxysmal atrial fibrillation (principal); I25.10 Atherosclerotic heart disease of native coronary artery without angina pectoris
CPT/HCPCS: 36415; 85610

== ENCOUNTER → 2018-09-13 | Outpatient (CLI) | payer MEDICARE, BC ==
[2018-02-10 13:11] VITALS: BMI 32.6
--- NOTE | 2018-09-13 15:35 | RADIOLOGY IMAGING REPORT ---
FACILITY: [facility] [place] PATIENT NAME: Norberto Pritchett : 1935 MR: [id number] V: [id number] EXAM DATE: ORDERING PHYSICIAN: LARISA HOUSER TECHNOLOGIST: Location: [facility] Patient: Norberto Pritchett : 1935 Visit/Account:[id number] Date of Sevice: 09/13/2018 EXAMINATION: MRI Lumbar spine without intravenous contrast HISTORY: Lumbosacral radiculopathy. Lower extremity weakness. COMPARISON: Lumbar spine MRI dated 12/08/2016. TECHNIQUE: Multi-planar, multi-sequence lumbar spine MRI was performed without intravenous contrast administration. FINDINGS: Alignment: Minimal retrolisthesis of L1 over L2 and L2 over L3. Minimal anterior listhesis of L4 over L5. Vertebral marrow signal: Negative. Distal thoracic cord: Negative. Conus: negative, terminates at the mid L1 vertebral body Cauda equina: Negative. Paravertebral soft tissues: Negative. Visualized abdominal and pelvic structures: Bilateral renal cysts measuring up to 4.4 cm. Disc Spaces: Lower thoracic spine: Minimal disc bulge at T12-L1 with no significant stenosis. No significant schreiber e. L1-2: Mild disc height loss and circumferential disc bulge. No significant stenosis. No significant c hange. L2-3: Mild disc height loss and circumferential disc bulge. Mild facet hypertrophy. No significant sp inal canal stenosis. [id number] bilateral neural foraminal stenosis. Slightly worsened compared with 2017. L3-4: Moderate disc height loss with circumferential disc bulge, facet hypertrophy, and ligamentum fl avum thickening. Mild spinal canal stenosis. Moderate bilateral neural foraminal stenosis. L4-5: Mild disc height loss. Circumferential disc bulge with superimposed central disc extrusion exte nding 9 mm inferiorly. Moderate facet hypertrophy with right facet joint effusion. Moderate spinal ca nal and bilateral neural foraminal stenosis. Worsened compared with 2017. L5-S1: Moderate disc height loss with circumferential disc bulge and facet hypertrophy. No significan t spinal canal stenosis. [id number] bilateral neural foraminal stenosis. No significant change. IMPRESSION: Multilevel degenerative disc disease and facet hypertrophy with multiple mild alignment a bnormalities. Report Dictated By: Abe Jaffe MD at 09/13/2018 3:24 PM Report E-Signed By: Abe Jaffe MD at 09/13/2018 3:31 PM WSN:[email or web address]
== END ==
LOC: MRI 00:42
PROVIDERS: ATTEND Psychiatry & Neurology Neurology
DX: M47.896 Other spondylosis, lumbar region (principal)
CPT/HCPCS: 72148

== ENCOUNTER → 2018-09-19 | Outpatient (CLI) | payer MEDICARE, BC ==
[2018-02-10 13:11] VITALS: BMI 32.6
[2018-09-19 11:55] LABS: INR 2.78
== END ==
LOC: LAB 11:27
PROVIDERS: ATTEND Internal Medicine Cardiovascular Disease
DX: I48.0 Paroxysmal atrial fibrillation (principal); I25.10 Atherosclerotic heart disease of native coronary artery without angina pectoris
CPT/HCPCS: 36415; 85610

== ENCOUNTER → 2018-10-12 | Outpatient (CLI) | payer MEDICARE, BC ==
[2018-02-10 13:11] VITALS: BMI 32.6
[2018-10-12 12:06] LABS: INR 2.76
== END ==
LOC: LAB 11:18
PROVIDERS: ATTEND Internal Medicine Cardiovascular Disease
DX: I48.0 Paroxysmal atrial fibrillation (principal); I25.10 Atherosclerotic heart disease of native coronary artery without angina pectoris
CPT/HCPCS: 36415; 85610

== ENCOUNTER → 2018-11-04 | Outpatient (CLI) | payer MEDICARE, BC ==
[2018-02-10 13:11] VITALS: BMI 32.6
[~2018-11-04] MED LIST changes: -VERA120T14 PO; +VERA120T76 PO
[2018-11-04 11:49] LABS: INR 1.08
--- NOTE | 2018-11-04 12:22 | RADIOLOGY IMAGING REPORT ---
FACILITY: [facility] PATIENT NAME: Norberto Pritchett : 1935 MR: [id number] V: [id number] EXAM DATE: ORDERING PHYSICIAN: TREE HOLGUIN TECHNOLOGIST: Location: [facility] Patient: Norberto Pritchett : 1935 Visit/Account:[id number] Date of Sevice: 11/04/2018 EXAMINATION: KUB 11/04/2018 11:37 AM HISTORY: Constipation COMPARISON: 11/14/2015 FINDINGS: Gas within the stomach and large and small bowel loops with a nonspecific pattern. There is a mild amount of fecal volume along the descending colon with right-sided and rectosigmoid sparin g. No visible radiopaque calculus. Right upper quadrant cholecystectomy clips. Degenerative spurri ng in the spine. IMPRESSION: Mild amount fecal material in the descending colon with right-sided and rectosigmoid sparing. Bowel gas pattern is otherwise nonspecific. Report Dictated By: Juan Hui MD at 11/04/2018 12:16 PM Report E-Signed By: Juan Hui MD at 11/04/2018 12:18 PM WSN:[email or web address]
== END ==
LOC: RAD 11:16
PROVIDERS: ATTEND Internal Medicine Cardiovascular Disease
DX: K59.00 Constipation, unspecified (principal); I48.0 Paroxysmal atrial fibrillation; I25.10 Atherosclerotic heart disease of native coronary artery without angina pectoris
CPT/HCPCS: 74018; 85610

== ENCOUNTER → 2018-11-04 | Outpatient (CLI) | payer MEDICARE, BC ==
[2018-02-10 13:11] VITALS: BMI 32.6
== END ==
LOC: LAB 11:20
PROVIDERS: ATTEND Urology
DX: C61 Malignant neoplasm of prostate (principal)
CPT/HCPCS: 36415; 84153

== ENCOUNTER → 2018-11-08 | Outpatient (REF) | payer MEDICARE, BC ==
[2018-02-10 13:11] VITALS: BMI 32.6
== END ==
LOC: ZZSENDIN 12:00
PROVIDERS: ATTEND Urology
DX: R31.9 Hematuria, unspecified (principal)
CPT/HCPCS: 88108

== ENCOUNTER → 2018-11-28 | Outpatient (CLI) | payer MEDICARE, BC ==
[2018-02-10 13:11] VITALS: BMI 32.6
[2018-11-28 12:12] LABS: INR 3.14
== END ==
LOC: LAB 11:34
PROVIDERS: ATTEND Internal Medicine Cardiovascular Disease
DX: I48.0 Paroxysmal atrial fibrillation (principal); I25.10 Atherosclerotic heart disease of native coronary artery without angina pectoris
CPT/HCPCS: 36415; 85610

== ENCOUNTER 2018-12-12 10:30 | Outpatient (RCR) | payer MEDICARE, BC ==
[2018-02-10 13:11] VITALS: BMI 32.6
--- NOTE | 2018-09-14 18:02 | PT INITIAL EVALUATION ---
MEDICAL DIAGNOSIS: R53.1 Generalized weakness, M54.17 L-S radiculopathy at S1, R26.89 Impairment of balance TREATMENT DIAGNOSIS: Same DATE OF ONSET: 07/09/18 SUBJECTIVE: Norberto Pritchett presents to PT for generalized weakness and imbalance that developed in July, and L-S B S1 radiculopathy that flared about tevin same time. MRI is positive for L5/S1 circumferential disc protrusion. He states he's falling at home since July. Nerve conduction test is positive for R SI willingham muscle weakness. Norberto would like to start with strengthening, gait and balance as he's falling. Oswestry Disability Index. . Pain location is L-S, B S1 and described as ache. Pain scale is 5-7 on a ten point pain scale. Pain is worse with walking and hip flexion and better with sitting legs propped up. 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 OBJECTIVE: Posture: ER LE's 45 degrees, mildly flexed trunk. ROM: AROM lumbar minimal flexion and extension, side glide L and R. All lumbar motion recreates S1 symptoms seated and standing except standing flexion, pulling into the hamstrings. B hip PROM IR 10 deg., ER 30 deg., extension -20 deg., flexion 100 deg., adduction 10 degrees. Ankle DF PROM -10 degrees B. Positive seated dural stretch test, B S1. Strength: LE's 3+/5 except calves 2/5, ankle DF 3/5. Palpation: Painful in the L-S soft tissue. Mobility: Sit to clinical informatics manager 5 attempts 22" seat height, UE use, unsteady immediate standing balance. Gait: TUG 36 sec., 29 sec., 30 sec., all with O2 sats 93-96%, HR 74-82. Tinetti Gait and Balance 12, a high fall risk. Norberto ambulates with a SPC in R hand, B LE's ER 45 degrees, fleet clear the floor but don't pass each other, foot flat gait pattern. Balance: Double limb support only. Unsteady standing eyes closed on firm surface, retro balance loss with push to chest. ASSESSMENT: Norberto Pritchett presents with weakness, high fall risk, B SI radiculopathy. He did well with standing stretching and heel raises. Short Term Goals One month: Norberto ambulates with SPC with ER LE's 30 degrees, steady standing balance with heels close, Tinetti Gait and Balance 15 to reduce fall risk. Two months: Norberto ambulates with normal foot angle B, demonstrates corrective balance reactions on firm surface, Tinetti Gait and Balance 18 to reduce fall risk. Three months: Norberto relates he can ambulate in [facility] safely, Tinetti Gait and balance 20+ to reduce fall risk, steady balance on uneven surfaces. Patient's Goals Reduce falls, get stronger for ambulation. PLAN: Patient to be seen for Manual Therapy/STM/MET Strengthening/condition Range of Motion Spinal Stabilization Stretching Neuromuscular Re-ed Gait Trg/Balance Trg Home Exercise Program 2x/Week for 3 months Thank you for this referral. If you have any questions, comments, or concerns about this report or plan, please contact me at . MTDD
--- NOTE | 2018-10-05 13:56 | PT PLAN OF CARE ---
Physician: Dr. Radha Castaneda Patient is being seen: 2x/week Therapist: Siri Hurt PT Medical Diagnosis: R53.1 Generalized weakness, M54.17 L-S radiculopathy at S1, R26.89 Impairment of balance Treatment Diagnosis: Same Date of Onset: 07/09/18 Date of Initial Evaluation: 09/14/18 Date patient was last seen: 10/05/18 Number of treatments: 10 Number of cancellations/No shows: 0 INTERVENTIONS: Strengthening/condition, Range of Motion, Spinal Stabilization, Stretching, Neuromuscular Re-ed, Gait Trg/Balance Trg, Home Exercise Program GOALS: One month: Norberto ambulates with SPC with ER LE's 30 degrees, steady standing balance with heels close (progressing), Tinetti Gait and Balance 15 to reduce fall risk (progressing). Two months: Norberto ambulates with normal foot angle B, demonstrates corrective balance reactions on firm surface, Tinetti Gait and Balance 18 to reduce fall risk. (all not met) Three months: Norberto relates he can ambulate in the community safely, Tinetti Gait and balance 20+ to reduce fall risk, steady balance on uneven surfaces. (both not met) PATIENT'S GOAL: Reduce falls, get stronger for ambulation. (both progressing) Patient Compliance: Excellent Prognosis: Excellent Reasons for continuing therapy: S: Norberto relates his LBP is reducing. He denies S1 symptoms today, but this varies day to day. Posture: ER LE's 45 degrees, mildly flexed trunk. ROM: AROM lumbar improved to WNL flexion and still minimal extension Strength: LE's still 3+/5 except calves 2/5, ankle DF 3/5. Palpation: Painful in the L-S soft tissue. Gait and Balance: Norberto ambulates with a Hurrycane, LE's ER still 45 degrees, heels close together, still foot flat pattern. Timed up and go: 33, 29, 24 seconds, O2 on room air in the 90's, while at the evaluation his fastest time was 29 seconds. Steady immediate sit to stand balance. Mobility: Sit to supervisor engraving 1 attempts 22" seat height now, no UE use. A/P: Norberto Pritchett is centralizing S1 symptoms. If you agree, we'll continue 2x/week with lumbar focus, building up lumbar strength before changing to balance training. MTDD
--- NOTE | 2018-11-02 14:19 | PT PLAN OF CARE ---
Physician: Dr. Radha Castaneda Patient is being seen: 2x/week Therapist: Siri Hurt PT Medical Diagnosis: R53.1 Generalized weakness, M54.17 L-S radiculopathy at S1, R26.89 Impairment Treatment Diagnosis: Same Date of Onset: 07/09/18 Date of Initial Evaluation: 09/14/18 Date patient was last seen: 10/31/18 Number of treatments: 19 Number of cancellations/No shows: 0 INTERVENTIONS: Strengthening/condition, Range of Motion, Stretching, Neuromuscular Re-ed, Gait Trg/Balance Trg, Home Exercise Program GOALS: One month: Norberto ambulates with SPC with ER LE's 30 degrees (not met), steady standing balance with heels close (met), Tinetti Gait and Balance 15 to reduce fall risk (met). Two months: Norberto ambulates with normal foot angle B (not met), demonstrates corrective balance reactions on firm surface (not met), Tinetti Gait and Balance 18 to reduce fall risk. (met) Three months: Norberto relates he can ambulate in the community safely (not met), Tinetti Gait and balance 20+ to reduce fall risk (met), steady balance on uneven surfaces. (not met) PATIENT'S GOAL: Reduce falls, get stronger for ambulation. (both progressing) Patient Compliance: Excellent Prognosis: Excellent Reasons for continuing therapy: S: Norberto relates his LBP is 5/10 and his LE's ache 8/10. He reports he's less wobbly at home. Posture: ER LE's 45 degrees, mildly flexed trunk. ROM: AROM lumbar 75% flexion and 50% extension. Gait/Balance: SPC, LE's ER 40 degrees. Tinetti Gait and Balance improved to 22/28. Timed up and Go 29 seconds. Palpation: Painful in the L-S soft tissue. Mobility: Sit to rounding machine operator 1 attempt 22" seat height, no UE use, steady immediate standing balance. A/P: Norberto Pritchett has improved gait and balance, still has LBP and SI pain. If you agree, we'll continue at 2x/week to improve balance, gait, reduce fall risk and then work on LBP. Thank you. Physician signature date MTDD
--- NOTE | 2018-11-25 11:15 | PT PLAN OF CARE ---
Physician: Dr. Radha Castaneda Patient is being seen: 2x/week Therapist: Siri Hurt PT Medical Diagnosis: R53.1 Generalized weakness, M54.17 L-S radiculopathy at S1, R26.89 Impairment Treatment Diagnosis: Same Date of Onset: 07/09/18 Date of Initial Evaluation: 09/14/18 Date patient was last seen: 11/23/18 Number of treatments: 28 Number of cancellations/No shows: 0 INTERVENTIONS: Strengthening/condition, Range of Motion, Stretching, Neuromuscular Re-ed, Gait Trg/Balance Trg, Home Exercise Program, E-stim, Heat GOALS: One month: Norberto ambulates with SPC with ER LE's 30 degrees (not met), steady standing balance with heels close (met), Tinetti Gait and Balance 15 to reduce fall risk (met). Two months: Norberto ambulates with normal foot angle B (not met), demonstrates corrective balance reactions on firm surface (not met), Tinetti Gait and Balance 18 to reduce fall risk. (progressing) Three months: Norberto relates he can ambulate in the community safely (not met), Tinetti Gait and balance 20+ to reduce fall risk (not met), steady balance on uneven surfaces. (not met) PATIENT'S GOAL: Reduce falls, get stronger for ambulation. (both progressing) Patient Compliance: Excellent Prognosis: Excellent Reasons for continuing therapy: S: Norberto relates his L LE no longer hurts, R LE is mildly achy, but LBP since yesterday is 8/10, ache at the L-S junction. Posture: ER LE's 35 degrees, mildly flexed trunk. ROM: AROM lumbar 75% flexion, reduces LBP and extension 50% increases LBP. No S1 symptoms with spinal ROM, or SLR. Gait/Balance: Tinetti Gait and Balance reduced to 17, from 22, due to LBP. Norberto stops in turning, stops in gait, transfers needs UE use due to LBP. Norberto A/P: Norberto Pritchett is centralizing S1 symptoms with LBP consistent with what happens when radicular pain centralizes. We will focus on reducing LBP to improve gait and balance. If you agree, we'll continue 2x/week another 6 weeks to goals set. Thank you. Dr. Radha MONTALVO
== END 2018-12-13 ==
LOC: PT 10:30
PROVIDERS: ATTEND Psychiatry & Neurology Neurology
DX: R53.1 Weakness (principal); M54.17 Radiculopathy, lumbosacral region; R26.89 Other abnormalities of gait and mobility; E78.5 Hyperlipidemia, unspecified; I10 Essential (primary) hypertension; G61.81 Chronic inflammatory demyelinating polyneuritis; R25.1 Tremor, unspecified; I25.10 Atherosclerotic heart disease of native coronary artery without angina pectoris; I25.2 Old myocardial infarction; E11.9 Type 2 diabetes mellitus without complications; D69.3 Immune thrombocytopenic purpura; G62.9 Polyneuropathy, unspecified; G47.33 Obstructive sleep apnea (adult) (pediatric); C88.0 Waldenstrom macroglobulinemia
CPT/HCPCS: 97010; 97110; 97112; 97162; G0283

== ENCOUNTER → 2018-12-27 | Outpatient (CLI) | payer MEDICARE, BC ==
[2018-02-10 13:11] VITALS: BMI 32.6
[~2018-12-27] MED LIST changes: +ACET-2708 PO; +MELA1TAB2 PO
== END ==
LOC: LAB 15:19
PROVIDERS: ATTEND Family Medicine
DX: N18.3 Chronic kidney disease, stage 3 (moderate) (principal); E11.319 Type 2 diabetes mellitus with unspecified diabetic retinopathy without macular edema
CPT/HCPCS: 36415; 82310; 82374; 82435; 82565; 82947; 83036; 84132; 84295; 84520

== ENCOUNTER 2019-01-30 11:15 | Outpatient (RCR) | payer MEDICARE, BC ==
[2018-02-10 13:11] VITALS: BMI 32.6
--- NOTE | 2018-12-14 13:43 | PT PLAN OF CARE ---
Physician: Dr. Radha Castaneda Patient is being seen: 2x/week Therapist: Siri Hurt, PT Medical Diagnosis: R53.1 Generalized weakness, M54.17 L-S radiculopathy at S1, R26.89 Impairment Treatment Diagnosis: Same Date of Onset: 07/09/18 Date of Initial Evaluation: 09/14/18 Date patient was last seen: 12/14/18 Number of treatments: 36 Number of cancellations/No shows: 0 INTERVENTIONS: Strengthening/condition, Range of Motion, Stretching, Neuromuscular Re-ed, Gait Trg/Balance Trg, Home Exercise Program, E-stim, Heat GOALS: One month: Norberto ambulates with SPC with ER LE's 30 degrees (progressing), steady standing balance with heels close (met), Tinetti Gait and Balance 15 to reduce fall risk (met). Two months: Norberto ambulates with normal foot angle B (progressing), demonstrates corrective balance reactions on firm surface (progressing), Tinetti Gait and Balance 18 to reduce fall risk. (met) Three months: Norberto relates he can ambulate in the community safely (not met), Tinetti Gait and balance 20+ to reduce fall risk (met), steady balance on uneven surfaces. (not met) PATIENT'S GOAL: Reduce falls, get stronger for ambulation. 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 He relates he fell at home to the R, slowly, on 12/10/18, unsure why, no injury. Posture: ER LE's 30 degrees, upright trunk. ROM: AROM lumbar 75% flexion, reduces LBP and extension 50% increases LBP. No S1 symptoms with spinal ROM. Gait/Balance: Tinetti Gait and Balance improved to 23, a fall risk. Norberto has advanced to balance exercises with mild A/P WS, demonstrated self-recovery with LOB to the L. Norberto can now ambulate 10 feet with SPC with 30 deg. ER LE's. A/P: Norberto Pritchett has low grade LBP, mild R S1 symptoms, is reducing fall risk and improving gait. If you agree, we'll continue PT at 2x/week [address] Radha MONTALVO
--- NOTE | 2018-12-19 12:57 | PT PLAN OF CARE ---
Physician: Dr. Radha Castaneda Patient is being seen: 2x/week Therapist: Siri Hurt, PT Medical Diagnosis: R53.1 Generalized weakness, M54.17 L-S radiculopathy at S1, R26.89 Impairment Treatment Diagnosis: Same Date of Onset: 07/09/18 Date of Initial Evaluation: 09/14/18 Date patient was last seen: 12/19/18 Number of treatments: 37 Number of cancellations/No shows: 1 INTERVENTIONS: Stretching, Neuromuscular Re-ed, Gait Trg/Balance Trg, Home Exercise Program GOALS: One month: Norberto ambulates with SPC with ER LE's 30 degrees (progressing), steady standing balance with heels close (met), Tinetti Gait and Balance 15 to reduce fall risk (met). Two months: Norberto ambulates with normal foot angle B (progressing), demonstrates corrective balance reactions on firm surface (not met), Tinetti Gait and Balance 18 to reduce fall risk. (met) Three months: Norberto relates he can ambulate in the community safely (not met), Tinetti Gait and balance 20+ to reduce fall risk (met), steady balance on uneven surfaces. (not met) PATIENT'S GOAL: Reduce falls, get stronger for ambulation. (both progressing) Patient Compliance: Excellent Prognosis: Excellent Reasons for continuing therapy: S: Norberto relates he doesn't have S1 pain. He reports a fever and missed one session last week due to illness. Posture: ER LE's 30 degrees, mildly flexed trunk. ROM: AROM lumbar WNL flexion, 50% extension. Ankle DF PROM 0 degrees B. Strength: LE's 4/5 except calves 3/5. Gait: With focus, Norberto can ambulates with ~30 deg. ER LE"s but reports he more unsteady, SPC. Balance: Slow stepping reactions on firm. Mcfarland Balance Assessment 40/56 a high fall risk. Mobility: Independent. A/P: Norberto Pritchett has improved S1 symptoms, is still a fall risk and need more strength. If you agree, we'll continue another 6 weeks, 2x/week to goals set. Thank you. Dr. Mitzi MONTALVO
--- NOTE | 2019-01-30 12:07 | PT PLAN OF CARE ---
Physician: Dr. Radha Castaneda Patient is being seen: 2x/week Therapist: Siri Hurt, PT Medical Diagnosis: R53.1 Generalized weakness, M54.17 L-S radiculopathy at S1, R26.89 Impairment Treatment Diagnosis: Same Date of Onset: 07/09/18 Date of Initial Evaluation: 09/14/18 Date patient was last seen: 01/30/19 Number of treatments: 47 Number of cancellations/No shows: 5 INTERVENTIONS: Strengthening/condition, Neuromuscular Re-ed, Gait Trg/Balance Trg, Home Exercise Program, E-stim, Heat GOALS: One month: Norberto ambulates with SPC with ER LE's 30 degrees (not met), steady standing balance with heels close (met), Tinetti Gait and Balance 15 to reduce fall risk (met). Two months: Norberto ambulates with normal foot angle B (not met), demonstrates corrective balance reactions on firm surface (met), Tinetti Gait and Balance 18 to reduce fall risk. (met) Three months: Norberto relates he can ambulate in the community safely (not met, he doesn't go out), Tinetti Gait and balance 20+ to reduce fall risk (met), steady balance on uneven surfaces. (not met, he stays with firm surfaces) PATIENT'S GOAL: Reduce falls, get stronger for ambulation. (both met) Patient Compliance: Fair Prognosis: Excellent Reasons for continuing therapy: S; Norberto relates he doesn't go out except for PT. He relates he's sedentary at home and isn't concerned with changing his angle of progression. He relates some days he's pain free in his L-S and S1 dermatomes, other days is 5-6/10 pain scale. Posture: ER LE's 45 degrees, mildly flexed trunk. ROM: AROM lumbar WNL flexion and extension without S1 symptoms. Ankle DF PROM 0 degrees. Strength: L LE 4/5, R LE 5/5. Gait: SPC, ER LE's 40 degrees, slow cadance, turns <4 seconds. Balance Tinetti Gait and Balance 23, a low fall risk. Mcfarland Balance Assessment 47, a low fall risk. Mobility: Sit to stand independent, immediate steady standing balance. A/P: Norberto Pritchett has improved gait, balance, isn't concerned for his ER LE's in gait. If you agree, I'll DC PT this Wednesday after HEP advancement. Thank you. Dr. Radha Almodovarer date MTDMarivel
--- NOTE | 2019-02-06 13:05 | PT PLAN OF CARE ---
Physician: Dr. Radha Castaneda Patient is being seen: 2x/week Therapist: Siri Hurt, PT Medical Diagnosis: R53.1 Generalized weakness, M54.17 L-S radiculopathy at S1, R26.89 Impairment Treatment Diagnosis: Same Date of Onset: 07/09/18 Date of Initial Evaluation: 09/14/18 Date patient was last seen: 01/30/19 Number of treatments: 48 Number of cancellations/No shows: 6 INTERVENTIONS: Manual Therapy/STM/MET Strengthening/condition Range of Motion Spinal Stabilization Stretching Neuromuscular Re-ed Gait Trg/Balance Trg Home Exercise Program GOALS: One month: Norberto ambulates with SPC with ER LE's 30 degrees (not met), steady standing balance with heels close (met), Tinetti Gait and Balance 15 to reduce fall risk (met). Two months: Norberto ambulates with normal foot angle B (not met), demonstrates corrective balance reactions on firm surface (met), Tinetti Gait and Balance 18 to reduce fall risk. (met) Three months: Norberto relates he can ambulate in the community safely (not met, he doesn't go out), Tinetti Gait and balance 20+ to reduce fall risk (met), steady balance on uneven surfaces. (not met, he stays with firm surfaces) PATIENT'S GOAL: Reduce falls, get stronger for ambulation. (both met) Patient Compliance: Good Prognosis: Excellent Reasons for discontinuing therapy: S: Norberto sánchez showed his last PT appointment for HEP. O:His note on 01/30/19 has his last measurements.A/P: Norberto Pritchett wasn't interested in a HEP. I'll DC PT. Thank you. KATIA
== END 2019-01-30 18:00 | disposition home or self-care (01) ==
LOC: PT 11:15
PROVIDERS: ATTEND Psychiatry & Neurology Neurology
DX: R53.1 Weakness (principal); M54.17 Radiculopathy, lumbosacral region; R26.89 Other abnormalities of gait and mobility; E78.5 Hyperlipidemia, unspecified; I10 Essential (primary) hypertension; G61.81 Chronic inflammatory demyelinating polyneuritis; R25.1 Tremor, unspecified; I25.10 Atherosclerotic heart disease of native coronary artery without angina pectoris; I25.2 Old myocardial infarction; E11.9 Type 2 diabetes mellitus without complications; D69.3 Immune thrombocytopenic purpura; G62.9 Polyneuropathy, unspecified; G47.33 Obstructive sleep apnea (adult) (pediatric); C88.0 Waldenstrom macroglobulinemia
CPT/HCPCS: 97010; 97110; 97112; 97116; G0283

== ENCOUNTER → 2019-03-29 | Outpatient (CLI) | payer MEDICARE, BC ==
[2018-02-10 13:11] VITALS: BMI 32.6
== END ==
LOC: LAB 11:17
PROVIDERS: ATTEND Family Medicine
DX: E11.319 Type 2 diabetes mellitus with unspecified diabetic retinopathy without macular edema (principal)
CPT/HCPCS: 36415; 83036